=== PATIENT | female | born 1965 | race Caucasian/White ===

== ENCOUNTER 2018-04-13 09:12 | Inpatient (IN) | payer MEDICARE, MEDICAID, SELFPAY ==
[2018-04-13] VITALS (19 sets, daily range): BP systolic 166–194; BP diastolic 79–126; PULSE 68–82; RESP 13–25; TEMP 36.7–37.3; O2SAT 94–99; BMI 45.1; BMI 50.8
--- NOTE | 2018-04-13 09:15 | CT_ITS ---
STUDY: CTA NECK WITH AND WITHOUT CONTRAST REASON FOR EXAM: Female, 52 years old. Right-sided weakness and slurred speech. RADIATION DOSAGE (If Supplied By Facility): CTDIvol = ( 21.66 ) mGy, DLP = ( 868.08 ) mGycm TECHNIQUE: CT angiography with multi-detector data acquisition was performed from the aortic arch to the skull base prior to and after intravenous administration of 100CC ml of Isovue 370 contrast. MIP images were reconstructed from the axial data set. Post-processing of the angiographic images was performed, with multiplanar reformation and 3D reconstruction. Individualized dose optimization techniques were used for this CT. COMPARISON: None. FINDINGS: AORTIC ARCH: Normal visualized aortic arch. Normal origins of the brachiocephalic, left common carotid, and left subclavian arteries. RIGHT CAROTID ARTERIES: Normal right common carotid artery (CCA). Normal right internal carotid bulb. Normal origin of the right internal carotid (ICA) artery without a hemodynamically significant stenosis. Normal visualized cervical portion of the right internal carotid artery. Normal origin of the right external carotid artery (ECA). LEFT CAROTID ARTERIES: Normal left common carotid artery (CCA). Normal left internal carotid bulb. Normal origin of the left internal carotid (ICA) artery without a hemodynamically significant stenosis. Normal visualized cervical portion of the left internal carotid artery. Normal origin of the left external carotid artery (ECA). VERTEBRAL ARTERIES: Normal bilateral vertebral arteries. The right vertebral artery is dominant. CT/CTA Neck W/WO Contrast IMPRESSION: 1. Normal CTA of both common carotid arteries, both common carotid bifurcations and both internal and external carotid arteries. 2. Normal CTA of the vertebral arteries. 3. Normal CT of the aortic arch and origins of the great vessels. 4. Suspicious focal high-grade stenosis in the P2 segment of the left posterior cerebral artery (series 602, images 60-65). This may be a partially recanalized old embolic occlusion as there is no suspicious intrinsic small vessel asymptotically cc of the intracranial circulation on CTA head. This is most likely the source of the old ischemic infarct in the left [employer] territory. Electronically Signed: Evaristo Torres MD at 11:28 EST , Service support ,
--- NOTE | 2018-04-13 09:15 | CT_ITS ---
STUDY: CT BRAIN WITHOUT CONTRAST REASON FOR EXAM: Female, 52 years old. Weakness. Slurred speech. History of brain cancer. RADIATION DOSAGE (If Supplied By Facility): CTDIvol = ( 44.99 ) mGy, DLP = ( 829.85 ) mGycm TECHNIQUE: Transaxial CT imaging of the brain was performed without administration of intravenous contrast material. Individualized dose optimization techniques were used for this CT. COMPARISON: None. FINDINGS: There are postsurgical changes from a left parieto-occipital craniotomy with subjacent encephalomalacia and associated parenchymal calcifications. There is no acute bleed or infarct. There are chronic ischemic and atrophic changes. The ventricles are normal in configuration. There is no hydrocephalus. The visualized paranasal sinuses are clear. The mastoid air cells are well aerated. There is no skull fracture. CT/Brain/Head without Contrast IMPRESSION: Postsurgical changes from a left parieto-occipital craniotomy with subjacent encephalomalacia and associated parenchymal calcifications. No definite intracranial masses identified on this noncontrast CT. If indicated, further evaluation with a contrast-enhanced MRI can be performed for a more detailed evaluation. No acute intracranial abnormality. Chronic ischemic and atrophic changes. Electronically Signed: Ruben Johnson, at 10:11 EST Tel , Service support ,
--- NOTE | 2018-04-13 09:15 | CT_ITS ---
STUDY: CTA OF THE BRAIN REASON FOR EXAM: Female, 52 years old. Right-sided weakness and slurred speech. RADIATION DOSAGE (If Supplied By Facility): CTDIvol = ( 21.66 ) mGy, DLP = ( 868.08 ) mGycm TECHNIQUE: CT angiography was performed with a multi-detector CT scanner. Data acquisition was obtained from the skull base through the vertex following intravenous administration of 100 ml of Isovue 370. MIP images were reconstructed from the axial data set. Post-processing of the angiographic images was performed, with multiplanar reformation and 3D reconstruction. Individualized dose optimization techniques were used for this CT. COMPARISON: None. FINDINGS: Normal bilateral petrous carotid arteries. Normal right cavernous carotid artery with a normal supraclinoid bifurcation. Normal left cavernous carotid artery with a normal supraclinoid bifurcation. Normal right A1 segment of the anterior cerebral artery. Normal left A1 segment of the anterior cerebral artery. Normal intact anterior communicating artery (ACOM). Normal bilateral A2 segments of the anterior cerebral arteries. Normal right M1 and M2 segments of the middle cerebral arteries, with a normal M1 bifurcation. Normal left M1 and M2 segments of the middle cerebral arteries, with a normal M1 bifurcation. No visible right posterior communicating artery (PCOM). No visible left posterior communicating artery (PCOM). Normal bilateral vertebral arteries. The right is dominant. Normal basilar artery with a normal basilar bifurcation. The visualized bilateral superior cerebellar (SCA) arteries are normal. Normal bilateral P1, P2 and visualized P3 segments of the posterior cerebral arteries. There is no demonstrated aneurysm of the [place]. Gyriform dystrophic calcifications of the left occipital lobe from remote infarct. 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 CT/CTA Head W/WO Contrast IMPRESSION: 1. No CTA evidence of suspicious vaso-occlusive disease of the anterior and posterior intracranial circulation. 2. No CTA evidence of intracranial aneurysm, saccular or fusiform type. 3. Gyriform calcifications in the left occipital lobe are presumably dystrophic calcifications of old infarct. 4. Focal atrophy and cystic encephalomalacia from old cortical based ischemic infarct in the left parietal lobe. Electronically Signed: Evaristo Torres MD at 11:21 EST , Service support ,
--- NOTE | 2018-04-13 09:15 | EKG12_ITS ---
Test Reason : NEURO SYMPTOMS Blood Pressure : / mmHG Vent. Rate : 076 BPM Atrial Rate : 076 BPM P-R Int : 140 ms QRS Dur : 098 ms QT Int : 410 ms P-R-T Axes : 000 006 010 degrees QTc Int : 461 ms Normal sinus rhythm Normal ECG Confirmed by SAHRA SOLO, SOURAV ([id number]), tape editor DREW HARMAN ([id number]) on 04/16/2018 9:04:06 AM Referred By: Fracisco Lanier Confirmed By:SOURAV BOCANEGRA MD
[2018-04-13] MEDS: 0.9% Normal Saline 1,000 ML 100 ML IV (09:20)
--- NOTE | 2018-04-13 09:20 | RAD_ITS ---
STUDY: X-RAY CHEST REASON FOR EXAM: Female, 52 years old. Hypertension TECHNIQUE: Frontal view of the chest COMPARISON: None. FINDINGS: The lungs are clear. There are no pleural effusions. There is no pneumothorax. The heart is enlarged. The visualized osseous structures are within normal limits. RAD/Chest 1 View IMPRESSION: Cardiomegaly. Clear lungs. Electronically Signed: Ruben Johnson, at 9:39 EST Tel , Service support ,
--- NOTE | 2018-04-13 09:30 | NURSING ---
NO OLD EKGS
[2018-04-13 09:48] LABS: Anion Gap 9 (5-15); BUN 15 mg/dL (7-18); BUN/Creat Ratio 17.3 RATIO (10-20); Calcium,Total 8.8 mg/dL (8.5-10.1); Chloride 105 mmol/L (98-107); Creatinine, Serum 0.87 mg/dL (0.55-1.02); EST Glomerular Filtration Rate 73 mL/min (>60); Est Glom Filt Rate - Afr Amer 88 mL/min (>60); Estimated Creatinine Clearance 84.54 ml/min; Glucose 107 mg/dL (74-106); Potassium 3.8 mmol/L (3.5-5.1); Sodium Level 140 mmol/L (136-145)
[2018-04-13 09:50] LABS: Partial Thromboplast Time 23.7 Seconds (24.1-36.2)
[2018-04-13 10:09] LABS: Alcohol, Blood (Medical)-Serum < 3.0 mg/dL
[2018-04-13 10:17] LABS: Absolute Neutrophil Count 5.3 X10^3/uL (2.0-7.7); Basophil% 0.3 % (0-1); Eosinophils% 2.2 % (0-5); Hematocrit 41.5 % (37-47); Hemoglobin 13.6 g/dl (12.0-15.0); Lymphocyte % 18.7 % (19-41); Mean Corp Hgb Conc 32.8 g/gl (32-36); Mean Corpuscular Hgb 29.7 pg (27.0-32.0); Mean Corpuscular Volume 90.6 fL (81-99); Mean Platelet Vol. 9.7 fl (6.2-12.0); Monocyte% 5.3 % (0-10); Neutrophil # 5.29 X10^3/uL (2.7-7.7); Neutrophil % 73.2 % (47-70); POSITIVE COUNT NO; POSITIVE DIFFERENTIAL NO; POSITIVE MORPHOLOGY NO; Platelet Count 216 K/mm3 (150-450); RBC Distribution Width CV 13.8 % (11.6-14.6); RBC Distribution Width SD 45.1 fl (35.1-43.9); Red Blood Count 4.58 M/mm3 (4.2-5.4); White Blood Count 7.2 K/mm3 (4.4-11.0)
[2018-04-13 10:18] LABS: Absolute Lymphocyte Count 1.35 X10^3/ul (0.83-4.51); Basophil# 0.02 X10^3/uL; Eosinophil# 0.16 X10^3/uL; Lymphocyte # 1.35 X10^3/ul (4.0); Monocyte# 0.38 X10^3/uL
[2018-04-13 10:50] LABS: Bacteria 0 SEEN /hpf (None Seen); Mucous, Urine 0 SEEN /hpf (<or=2+); Red Blood Cells-Urine 0 SEEN /hpf (0-5); White Blood Cells 0 SEEN /hpf (0-5)
[2018-04-13 10:59] LABS: Color, Urine Yellow (Yellow); Glucose, Dipstick Normal (Normal); Ketone-Dipstick Negative (Negative); Leukocyte Esterase-Dipstick 25 /ul (Negative); Nitrite-Dipstick Negative (Negative); Occult Blood-Urine Negative /ul (Negative); Protein-Dipstick Negative (Negative); Specific Gravity, Urine 1.005 (1.002-1.030); Urine Bilirubin Dipstick Negative (Negative); Urine Clarity Sl. Cloudy (Clear); Urine Urobilinogen Normal (Normal)
[2018-04-13 11:08] LABS: Squamous Epithelial Cells - UA 5-10 SEEN /hpf (5-10)
--- NOTE | 2018-04-13 11:38 | ED.VISSUMM ---
- ER Visit Summary Date of Service: 04/13/18 Chief Complaint: [Right-sided weakness] History of Present Illness: The patient is a 52 F [presents to the emergency department with complaint of weakness to the right side that started last evening around 8 PM. Patient states that she was watching television when she noted that her right arm and right leg were weak. Patient did not come in initially because she felt her symptoms would resolve and she was not sure what to do. Patient finally called EMS this morning. Patient has history of left-sided brain cancer in 1999 that was resected and then underwent chemotherapy. She has a history of hypertension and high cholesterol. Patient denies any headache. She denies any falls. She denies recent illness.] Physical Examination: [HEENT-PERRLA, EOMI. Cranial nerves II through XII grossly intact. TMs clear. Mucous membranes moist. No adenopathy. Cardiovascular-regular rate and rhythm without murmur or ectopy Lungs-clear to auscultation, chest wall stable without crepitus or subcu emphysema Abdomen-normoactive bowel sounds, soft, nontender, no rebound or rigidity, no peritoneal signs. Neuro exam-patient has a right-sided facial droop. Patient has weakness of the right arm and right leg. NIH stroke scale was a 6. Patient does have some dysarthria. Patient does have some expressive a aphasia. Extremities-intact ?4, normal range of motion, normal pulses, atraumatic] Test Results: [CT scan of the brain was significant for postsurgical changes of the left parieto-occipital craniotomy. No definitive masses noted and there were some chronic ischemic changes noted. EKG obtained shows sinus rhythm with a ventricular rate 76 bpm. CBC with differential was normal. Chemistries unremarkable. Troponin was less than 0.015. Alcohol level was less than 3. Urinalysis was normal. CTA of the brain was normal. CTA of the neck showed a suspicious focal high-grade stenosis of the P2 segment of the left posterior cerebral artery which may be partially recanalized old embolic occlusion as there is no suspicious intrinsic small vessel occlusions of the intracranial circulation on CTA head.] Emergency Department Course and Treatment: [Patient was given labetalol 10 mg IV] Treatment Plan: [Case was discussed with neurologist on-call Dr. René Barry who asked that we admit patient for further workup and evaluation. Patient is not a thrombolytic candidate due to symptom of onset greater than 12 hours.] Disposition: [Admit] Impression: [Acute CVA] This note was generated with [employer] dictation software. It may contain incorrect words, spelling, and punctuation that were not noted in review of the chart prior to signing ED Disposition - Plan for ED Patient: Chief Complaint: Neuro S/Sx Referrals: Lefty Paula DO [Primary Care Provider] -
--- NOTE | 2018-04-13 11:51 | NURSING ---
HOSPITALIST FOR DR CARNEY
--- NOTE | 2018-04-13 12:05 | NURSING ---
PCU RT SIDED WEAKNESS LAURA
--- NOTE | 2018-04-13 13:27 | ECHOCS_ITS ---
Reason For Study: TIA/CVA Procedure This was a 2D Doppler, Color Flow transthoracic echocardiogram. Contrast injection was performed. Exam performed portable in patient room. Left Ventricle Normal LV size. Left ventricular systolic function is normal. The estimated ejection fraction is 60 %. Stage 1 diastolic dysfunction. No regional wall motion abnormalities noted. Right Ventricle Normal RV size. Normal systolic function. Atria Normal left atrium. Normal right atrium. Mitral Valve Normal mitral valve. Tricuspid Valve Normal tricuspid valve. Aortic Valve Normal aortic valve. Pulmonic Valve Normal pulmonic valve. Great Vessels Normal aortic root. Pericardium/Pleural No pericardial effusion. Medication Performed a rapid injection of agitated mix of 9 cc saline and 1cc air to assess for atrial septal defect. Diluted definity 4ml given slow IV push to enhance endocardial definition. MMode/2D Measurements & Calculations LVIDd: 4.7 cm IVSd: 0.97 cm Ao root diam: 3.6 cm LVIDs: 2.9 cm LVPWd: 1.1 cm RVDd: 3.7 cm FS: 37.4 % LAV(MOD-bp): 44.7 ml LVAd ap4: 38.9 cm2 SV(MOD-sp4): 84.7 ml LAV(MOD-bp) Indexed: 17.5 ml/m2 EDV(MOD-sp4): 132.5 ml LAV(MOD-sp2): 40.0 ml EDV(sp4-el): 139.7 ml LAV(MOD-sp4): 40.0 ml LVAs ap4: 20.4 cm2 ESV(MOD-sp4): 47.8 ml ESV(sp4-el): 50.1 ml EF(MOD-sp4): 63.9 % EF(sp4-el): 64.1 % SV(sp4-el): 89.6 ml LA A4 area: 17.0 cm2 LA dimension(2D): 3.7 cm Time Measurements MV dec time: 0.28 sec Doppler Measurements & Calculations MV E max david: 63.5 cm/sec Lat Peak E' David: 6.7 cm/sec Med Peak E' David: 5.9 cm/sec MV A max david: 85.0 cm/sec E/E' lat: 9.5 E/E' med: 10.8 MV E/A: 0.75 Ao V2 max: 168.2 cm/sec LV V1 max: 108.8 cm/sec TR max david: 146.5 cm/sec Ao max P.3 mmHg LV V1 max P.7 mmHg TR max P.6 mmHg Interpretation Summary Normal LV size. Left ventricular systolic function is normal. The estimated ejection fraction is 60 %. Stage 1 diastolic dysfunction. Contrast injection was performed. Ordering Physician: Fracisco Lanier Referring Physician: LD MATUTE Performed By: Tila Perez, CAROLINECS, RVT
--- NOTE | 2018-04-13 14:29 | MRI_ITS ---
STUDY: MRI BRAIN WITH AND WITHOUT CONTRAST REASON FOR EXAM: Female, 52 years old. Right side flaccid. CVA. History of brain mass. TECHNIQUE: Standardized multiplanar fat and water weighted pulse sequences were obtained. 10 ml of Gadavist contrast material was administered intravenously for the contrast portion of the examination. COMPARISON: CT head without contrast and CTA head and neck with and without contrast 04/13/2018. FINDINGS: Left periventricular white matter restricted diffusion measures 1.9 x 1.2 cm. This is also visible on the T2 FLAIR sequence. The restricted diffusion extends to the left posterior putamen.This is consistent with subacute ischemic infarct. Old cystic infarct with focal atrophy in the left precuneus and left superior parietal lobule. Normal ventricles and cisterns. T2 FLAIR hyperintensity foci in the white matter of both cerebral hemispheres are chronic white matter ischemic changes. Normal remaining basal ganglia. Normal thalami. There is no extra-axial fluid accumulation. Normal flow voids within the major intracranial circulation suggesting patency by spin echo criteria. Normal venous enhancement. There is no enhancing intra-axial or extra-axial abnormality. Normal sella turcica, pituitary gland, infundibular stalk, optic chiasm and hypothalamus. Normal tectal plate and pineal gland. Normal midbrain, mao and medulla. Normal cerebellum. Normal basal cisterns. Normal bilateral temporal bones. Normal bilateral internal auditory canals. No demonstrated orbital abnormality, within the constraints of a routine brain study. Normal visualized paranasal sinuses. Normal calvarium and skull base. Normal visualized soft tissue structures. Normal visualized upper cervical spine. MRI/Brain W/WO Contrast IMPRESSION: 1. Subacute ischemic infarct in the left periventricular white matter measuring 1.9 x 1.2 cm. This extends slightly towards the left posterior putamen. 2. Old cystic infarcts with focal atrophy in the left precuneus and left superior parietal lobule. 3. Chronic white matter ischemic changes in both cerebral hemispheres. Electronically Signed: Evaristo Torres MD at 10:00 EST , Service support ,
--- NOTE | 2018-04-13 14:30 | PCM.HP.STD ---
Problem List (1) Stroke Status: Suspected (2) Astrocytoma brain tumor Status: Chronic Comment: Left parietal. (3) HTN (hypertension) Status: Chronic (4) HLD (hyperlipidemia) Status: Chronic (5) Depression Status: Chronic History of Present Illness Date of Admission: 04/13/18 Chief Complaint: Right sided weakness. The patient is a 52 year old F who presents to the Emergency Room due to right sided weakness. Patient states her right arm became weak yesterday and she was unable to use right arm. Denies right leg weakness. Reports associated aphasia and right facial droop. Denies difficulty swallowing. Denies vision changes. Patient denies history of stroke. Patient states she did not come in right away, hopeful symptoms would resolve. Patient has a history of left parietal cystic astrocytoma. She follows with [facility] and has MRI every 6 months to monitor. She previously had resection with chemo and radiation in 1999. Her other past medical history includes hypertension, hyperlipidemia, depression. Past Medical History Past Medical History (Chronic Problems): Chronic Problems Astrocytoma brain tumor (Chronic) Left parietal. HTN (hypertension) (Chronic) HLD (hyperlipidemia) (Chronic) Depression (Chronic) Allergies prednisone Adverse Reaction (Verified 04/13/18 13:50) Rash Home Medications: Ambulatory Orders Medication Instructions Recorded Escitalopram Oxalate [Lexapro] 10 mg PO DAILY 04/13/18 Lisinopril [Zestril] 10 mg PO DAILY 04/13/18 Simvastatin 40 mg PO QHS 04/13/18 Surgical History: hysterectomy, - - Resection of left parietal cystic astrocytoma. Psychiatric History: Depression [employer] WORK[employer] History: No pertinent [employer] WORK[employer] history Lives: Alone Smoking Status: Never smoker Tobacco Use: Non-smoker Alcohol: Occasional Drugs: None - *Family History Maternal History Items: Dementia, - - Stroke Paternal History Items: - - Atrial Fibrillation Review of Systems Constitutional: Denies: Chills, Fever, Weight Change HEENT: Denies: Head Aches, Sinus Congestion, Sinus Drainage Cardiovascular: Denies: Chest Pain, Palpitations Respiratory: Denies: Cough, Shortness of breath at rest, Sputum production Gastrointestinal: Denies: Abdominal Pain, Nausea, Vomiting Genitourinary: Denies: Dysuria Musculoskeletal: Denies: Joint Pain, Joint Tenderness Skin: Denies: Rash, Wounds Neurological: Reports: Change in Speech - aphasia, Focal weakness - Right arm., - - Right facial droop.. Denies: Confusion, Seizures Psychiatric: Reports: Depression Hematologic/ Lymphatic: Denies: Easy Bruising, Easy Bleeding VTE Information - Inpt Only VTE Present on Admission: No VTE Mechan Device Prophylaxis: None VTE Pharm Prophylaxis ordered?: Yes Patient Problems: Active and Suspected Problems Stroke (Suspected) - Physical Exam General: Alert, Oriented x3, Cooperative HEENT: Atraumatic, PERRLA, EOMI, Normocephalic Neck: Supple, No JVD, Negative Carotid Bruits Lungs: Clear to auscultation, Normal air movement Cardiovascular: Regular rate, Regular Rhythm, Normal S1, Normal S2, No murmurs Abdomen: Bowel Sounds Present, Soft, Non Tender, Non-Distended, Obese Extremities: No clubbing, No cyanosis, No edema Skin: No rashes, No breakdown Musculoskeletal: No Tenderness to Palpation of Joints or Extremities Neurological: Facial Droop - Right side., - - Right arm 1/5 strength. Aphasia. Psych/Mental Status: Normal Affect, Appropriate Vital Signs Temp Pulse Resp BP Pulse Ox 98.6 F 69 17 176/96 H 95 04/13/18 13:50 04/13/18 13:50 04/13/18 13:50 04/13/18 13:50 04/13/18 13:50 Oxygen Delivery Method Room Air Weight: 315 lb Body Mass Index (BMI) 50.8 Finger Stick Blood Glucose 110 Laboratory Tests Past 24 Hrs 04/13/18 04/13/18 04/13/18 09:20 09:20 09:20 WBC 7.2 RBC 4.58 Hgb 13.6 Hct 41.5 MCV 90.6 MCH 29.7 MCHC 32.8 RDW 13.8 RDW Differential 45.1 H Plt Count 216 MPV 9.7 Immature Gran % (Auto) 0.300 Neut % (Auto) 73.2 H Lymph % (Auto) 18.7 L Harnett % (Auto) 5.3 Eos % (Auto) 2.2 Baso % (Auto) 0.3 Absolute Neuts (auto) 5.3 Absolute Lymphs (auto) 1.35 Total Counted Not Reportable PT 13.0 INR 1.0 APTT 23.7 L Sodium 140 Potassium 3.8 Chloride 105 Carbon Dioxide 26.0 Anion Gap 9 BUN 15 Creatinine 0.87 Estim Creat Clear Calc 84.54 Est GFR (MDRD) Af Amer 88 Est GFR (MDRD) Non-Af 73 BUN/Creatinine Ratio 17.3 Glucose 107 H Calcium 8.8 Troponin I < 0.015 Urine Color Urine Clarity Urine pH Ur Specific Rodney Urine Protein Urine Glucose (UA) Urine Ketones Urine Occult Blood Urine Nitrite Urine Bilirubin Urine Urobilinogen Ur Leukocyte Esterase Urine RBC Urine WBC Ur Squamous Epith Cells Urine Bacteria Urine Mucus Ethyl Alcohol 04/13/18 04/13/18 09:20 10:45 WBC RBC Hgb Hct MCV MCH MCHC RDW RDW Differential Plt Count MPV Immature Gran % (Auto) Neut % (Auto) Lymph % (Auto) Harnett % (Auto) Eos % (Auto) Baso % (Auto) Absolute Neuts (auto) Absolute Lymphs (auto) Total Counted PT INR APTT Sodium Potassium Chloride Carbon Dioxide Anion Gap BUN Creatinine Estim Creat Clear Calc Est GFR (MDRD) Af Amer Est GFR (MDRD) Non-Af BUN/Creatinine Ratio Glucose Calcium Troponin I Urine Color Yellow Urine Clarity Sl. Cloudy Urine pH 7.0 Ur Specific Rodney 1.005 Urine Protein Negative Urine Glucose (UA) Normal Urine Ketones Negative Urine Occult Blood Negative Urine Nitrite Negative Urine Bilirubin Negative Urine Urobilinogen Normal Ur Leukocyte Esterase 25 H Urine RBC 0 SEEN Urine WBC 0 SEEN Ur Squamous Epith Cells 5-10 SEEN Urine Bacteria 0 SEEN Urine Mucus 0 SEEN Ethyl Alcohol < 3.0 Assessment/Plan 1. Presumed acute CVA- NIH 6. Right arm 1/5 strength, ongoing since yesterday. Expressive aphasia and right facial droop. Brain CT on admission with postsurgical changes from a left parietal occipital craniotomy. No definite intracranial masses. Neck CTA with suspicious isolated focal high-grade stenosis in the P2 segment of the left posterior cerebral artery. This may be a partially recommend lysed old embolic occlusion. Aspirin, statin. Obtain MRI with contrast. Obtain echo. [facility] Q4. PT/OT/ST. Dr. Barry, neurology consulted. 2. Left parietal cystic astrocytoma-follows with [facility] with every 6 months MRI. Last reported to be stable. Previous tumor resection with chemo and radiation therapy in 1999. 3. Hypertension-permissive hypertension. Patient received labetalol in ER for systolic blood pressure greater than 190. Home lisinopril regimen on hold. 4. Hyperlipidemia-continue statin. Fasting lipid panel in a.m. 5. Depression-continue home Lexapro regimen. DVT prophylaxis-SCDs This patient was seen by VENKAT Mcguire under the supervision of Dr. Lanier.
--- NOTE | 2018-04-13 14:37 | HP.PCM_ITS ---
Problem List (1) Stroke Status: Suspected (2) Astrocytoma brain tumor Status: Chronic Comment: Left parietal. (3) HTN (hypertension) Status: Chronic (4) HLD (hyperlipidemia) Status: Chronic (5) Depression Status: Chronic History of Present Illness Date of Admission: 04/13/18 Chief Complaint: Right sided weakness. The patient is a 52 year old F who presents to the Emergency Room due to right sided weakness. Patient states her right arm became weak yesterday and she was unable to use right arm. Denies right leg weakness. Reports associated aphasia and right facial droop. Denies difficulty swallowing. Denies vision changes. Patient denies history of stroke. Patient states she did not come in right away, hopeful symptoms would resolve. Patient has a history of left parietal cystic astrocytoma. She follows with [facility] and has MRI every 6 months to monitor. She previously had resection with chemo and radiation in 1999. Her other past medical history includes hypertension, hyperlipidemia, depression. Past Medical History Past Medical History (Chronic Problems): Chronic Problems Astrocytoma brain tumor (Chronic) Left parietal. HTN (hypertension) (Chronic) HLD (hyperlipidemia) (Chronic) Depression (Chronic) Allergies prednisone Adverse Reaction (Verified 04/13/18 13:50) Rash Home Medications: Ambulatory Orders Medication Instructions Recorded Escitalopram Oxalate [Lexapro] 10 mg PO DAILY 04/13/18 Lisinopril [Zestril] 10 mg PO DAILY 04/13/18 Simvastatin 40 mg PO QHS 04/13/18 Surgical History: hysterectomy, - - Resection of left parietal cystic astrocytoma. 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 Lives: Alone Smoking Status: Never smoker Tobacco Use: Non-smoker Alcohol: Occasional Drugs: None - *Family History Maternal History Items: Dementia, - - Stroke Paternal History Items: - - Atrial Fibrillation Review of Systems Constitutional: Denies: Chills, Fever, Weight Change HEENT: Denies: Head Aches, Sinus Congestion, Sinus Drainage Cardiovascular: Denies: Chest Pain, Palpitations Respiratory: Denies: Cough, Shortness of breath at rest, Sputum production Gastrointestinal: Denies: Abdominal Pain, Nausea, Vomiting Genitourinary: Denies: Dysuria Musculoskeletal: Denies: Joint Pain, Joint Tenderness Skin: Denies: Rash, Wounds Neurological: Reports: Change in Speech - aphasia, Focal weakness - Right arm., - - Right facial droop.. Denies: Confusion, Seizures Psychiatric: Reports: Depression Hematologic/ Lymphatic: Denies: Easy Bruising, Easy Bleeding VTE Information - Inpt Only VTE Present on Admission: No VTE Mechan Device Prophylaxis: None VTE Pharm Prophylaxis ordered?: Yes Patient Problems: Active and Suspected Problems Stroke (Suspected) - Physical Exam General: Alert, Oriented x3, Cooperative HEENT: Atraumatic, PERRLA, EOMI, Normocephalic Neck: Supple, No JVD, Negative Carotid Bruits Lungs: Clear to auscultation, Normal air movement Cardiovascular: Regular rate, Regular Rhythm, Normal S1, Normal S2, No murmurs Abdomen: Bowel Sounds Present, Soft, Non Tender, Non-Distended, Obese Extremities: No clubbing, No cyanosis, No edema Skin: No rashes, No breakdown Musculoskeletal: No Tenderness to Palpation of Joints or Extremities Neurological: Facial Droop - Right side., - - Right arm 1/5 strength. Aphasia. Psych/Mental Status: Normal Affect, Appropriate Vital Signs Temp Pulse Resp BP Pulse Ox 98.6 F 69 17 176/96 H 95 04/13/18 13:50 04/13/18 13:50 04/13/18 13:50 04/13/18 13:50 04/13/18 13:50 Oxygen Delivery Method Room Air Weight: 315 lb Body Mass Index (BMI) 50.8 Finger Stick Blood Glucose 110 Laboratory Tests Past 24 Hrs 04/13/18 04/13/18 04/13/18 09:20 09:20 09:20 WBC 7.2 RBC 4.58 Hgb 13.6 Hct 41.5 MCV 90.6 MCH 29.7 MCHC 32.8 RDW 13.8 RDW Differential 45.1 H Plt Count 216 MPV 9.7 Immature Gran % (Auto) 0.300 Neut % (Auto) 73.2 H Lymph % (Auto) 18.7 L Jay % (Auto) 5.3 Eos % (Auto) 2.2 Baso % (Auto) 0.3 Absolute Neuts (auto) 5.3 Absolute Lymphs (auto) 1.35 Total Counted Not Reportable PT 13.0 INR 1.0 APTT 23.7 L Sodium 140 Potassium 3.8 Chloride 105 Carbon Dioxide 26.0 Anion Gap 9 BUN 15 Creatinine 0.87 Estim Creat Clear Calc 84.54 Est GFR (MDRD) Af Amer 88 Est GFR (MDRD) Non-Af 73 BUN/Creatinine Ratio 17.3 Glucose 107 H Calcium 8.8 Troponin I < 0.015 Urine Color Urine Clarity Urine pH Ur Specific [place] Urine Protein Urine Glucose (UA) Urine Ketones Urine Occult Blood Urine Nitrite Urine Bilirubin Urine Urobilinogen Ur Leukocyte Esterase Urine RBC Urine WBC Ur Squamous Epith Cells Urine Bacteria Urine Mucus Ethyl Alcohol 04/13/18 04/13/18 09:20 10:45 WBC RBC Hgb Hct MCV MCH MCHC RDW RDW Differential Plt Count MPV Immature Gran % (Auto) Neut % (Auto) Lymph % (Auto) Jay % (Auto) Eos % (Auto) Baso % (Auto) Absolute Neuts (auto) Absolute Lymphs (auto) Total Counted PT INR APTT Sodium Potassium Chloride Carbon Dioxide Anion Gap BUN Creatinine Estim Creat Clear Calc Est GFR (MDRD) Af Amer Est GFR (MDRD) Non-Af BUN/Creatinine Ratio Glucose Calcium Troponin I Urine Color Yellow Urine Clarity Sl. Cloudy Urine pH 7.0 Ur Specific [place] 1.005 Urine Protein Negative Urine Glucose (UA) Normal Urine Ketones Negative Urine Occult Blood Negative Urine Nitrite Negative Urine Bilirubin Negative Urine Urobilinogen Normal Ur Leukocyte Esterase 25 H Urine RBC 0 SEEN Urine WBC 0 SEEN Ur Squamous Epith Cells 5-10 SEEN Urine Bacteria 0 SEEN Urine Mucus 0 SEEN Ethyl Alcohol < 3.0 Assessment/Plan 1. Presumed acute CVA- NIH 6. Right arm 1/5 strength, ongoing since yesterday. Expressive aphasia and right facial droop. Brain CT on admission with postsurgical changes from a left parietal occipital craniotomy. No definite intracranial masses. Neck CTA with suspicious isolated focal high-grade stenosis in the P2 segment of the left posterior cerebral artery. This may be a partially recommend lysed old embolic occlusion. Aspirin, statin. Obtain MRI with contrast. Obtain echo. [facility] Q4. PT/OT/ST. Dr. Barry, neurology consulted. 2. Left parietal cystic astrocytoma-follows with [facility] with every 6 months MRI. Last reported to be stable. Previous tumor resection with chemo and radiation therapy in 1999. 3. Hypertension-permissive hypertension. Patient received labetalol in ER for systolic blood pressure greater than 190. Home lisinopril regimen on hold. 4. Hyperlipidemia-continue statin. Fasting lipid panel in a.m. 5. Depression-continue home Lexapro regimen. DVT prophylaxis-SCDs This patient was seen by VENKAT Mcguire under the supervision of Dr. Lanier.
[2018-04-13] MEDS: Aspirin 81 MG TAB.CHEW PO (17:48)
[2018-04-13] MEDS: Atorvastatin Calcium 80 MG Tablet PO (21:19)
[2018-04-14] VITALS (14 sets, daily range): BP systolic 162–187; BP diastolic 89–119; PULSE 63–88; RESP 15–18; TEMP 36.4–37.1; O2SAT 93–98; BMI 50.8
[2018-04-14] MEDS: Pramipexole Di-HCl 0.125 MG Tablet PO ×2 (00:34→20:40)
[2018-04-14 06:52] LABS: Cholesterol 174 mg/dL (200); Ferritin 33 ng/mL (8-252); High Density Lipoprotein 53 mg/dL; Triglycerides 140 mg/dL; Very Low Density Lipoprotein 28 mg/dL (5-40)
[2018-04-14] MEDS: Aspirin 81 MG TAB.CHEW PO (07:59)
--- NOTE | 2018-04-14 10:57 | CON.PCM_ITS ---
Reason for Consult Date of Consultation: 04/14/18 Reason for Consultation: Right-sided weakness History of Present Illness: The patient is a 52 year old presented with new right sided weakness. reports uncontrolled htn. nonsmoker and no diabetes.drinks moderate alchohol. doesnt take asa daily at home. lives alone, stays on one floor, two steps. reports food ok. speech therapy has recommended thickened liquids. nonsmoker, no asa at home. has frank on cpap nightly but hasnt had a study in at least 5yrs. Per admit note: The patient is a 52 year old F who presents to the Emergency Room due to right sided weakness. Patient states her right arm became weak yesterday and she was unable to use right arm. Denies right leg weakness. Reports associated aphasia and right facial droop. Denies difficulty swallowing. Denies vision changes. Patient denies history of stroke. Patient states she did not come in right away, hopeful symptoms would resolve. Patient has a history of left parietal cystic astrocytoma. She follows with [facility] and has MRI every 6 months to monitor. She previously had resection with chemo and radiation in 1999. Her other past medical history includes hypertension, hyperlipidemia, depression. Past Medical History Past Medical History (Chronic Problems): Chronic Problems Astrocytoma brain tumor (Chronic) Left parietal. HTN (hypertension) (Chronic) HLD (hyperlipidemia) (Chronic) Depression (Chronic) Allergies prednisone Adverse Reaction (Verified 04/13/18 13:50) Rash Home Medications: Ambulatory Orders Medication Instructions Recorded Escitalopram Oxalate [Lexapro] 10 mg PO DAILY 04/13/18 Lisinopril [Zestril] 10 mg PO DAILY 04/13/18 Simvastatin 40 mg PO QHS 04/13/18 Surgical History: hysterectomy, - - Resection of left parietal cystic astrocytoma. 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 severe dysarthria Vital Signs Temp Pulse Resp BP Pulse Ox 36.4 C L 81 18 166/102 H 96 04/14/18 08:00 04/14/18 08:00 04/14/18 08:00 04/14/18 08:00 04/14/18 08:00 Oxygen Flow Rate (L/min) 2 Oxygen Delivery Method Room Air Weight: 142.882 kg Body Mass Index (BMI) 50.8 Finger Stick Blood Glucose 110 Intake and Output for Last 24 Hours 04/12/18 04/13/18 04/14/18 23:59 23:59 23:59 Intake Total 850 / 850 150 / 150 Balance 850 / 850 150 / 150 Laboratory Tests Past 24 Hrs 04/13/18 04/14/18 10:45 06:00 Ferritin 33 Triglycerides 140 Cholesterol 174 LDL Cholesterol 93 VLDL Cholesterol 28 HDL Cholesterol 53 Urine Color Yellow Urine Clarity Sl. Cloudy Urine pH 7.0 Ur Specific [place] 1.005 Urine Protein Negative Urine Glucose (UA) Normal Urine Ketones Negative Urine Occult Blood Negative Urine Nitrite Negative Urine Bilirubin Negative Urine Urobilinogen Normal Ur Leukocyte Esterase 25 H Urine RBC 0 SEEN Urine WBC 0 SEEN Ur Squamous Epith Cells 5-10 SEEN Urine Bacteria 0 SEEN Urine Mucus 0 SEEN MRI reviewed. There is an acute left periventricular small vessel distribution infarct. There is also cystic encephalomalacia in the left parieto-occipital lobe posteriorly. CTA of the head and neck was also reviewed, no significant stenosis although the report does describe focal stenosis in the left P2 distribution. Assessment/Plan left BG infarct, acute asa daily statin therapy await echo tele pt/ot/sp rehab recommended recommend hypercoag eval rls: start mirapex qhs
--- NOTE | 2018-04-14 11:45 | PCM.PROGNOTE ---
Patient Problems: Active and Suspected Problems Stroke (Suspected) Subjective: Patient seen and examined. Returning from MRI. Denies new neurologic deficits. He continues to have right-sided weakness, right facial droop and severe dysarthria. Patient agreeable to rehab at discharge. - Physical Exam General: Alert, Oriented x3, Cooperative HEENT: Atraumatic, PERRLA, EOMI, Normocephalic Neck: Supple, No JVD, Negative Carotid Bruits Lungs: Clear to auscultation, Normal air movement Cardiovascular: Regular rate, Regular Rhythm, Normal S1, Normal S2, No murmurs Abdomen: Bowel Sounds Present, Soft, Non Tender, Non-Distended, Obese Extremities: No clubbing, No cyanosis, No edema, Capillary Refill Less than 3 Seconds Skin: No rashes, No breakdown Musculoskeletal: No Tenderness to Palpation of Joints or Extremities Neurological: Sensory exam intact to light touch and pain, - - Dysarthria, right facial droop, flaccid right arm, right leg weakness 3/5 Psych/Mental Status: Normal Affect, Appropriate Vital Signs Temp Pulse Resp BP Pulse Ox 97.5 F L 81 18 166/102 H 96 04/14/18 08:00 04/14/18 08:00 04/14/18 08:00 04/14/18 08:00 04/14/18 08:00 Oxygen Flow Rate (L/min) 2 Oxygen Delivery Method Room Air Weight: 315 lb Body Mass Index (BMI) 50.8 Finger Stick Blood Glucose 110 Intake and Output for Last 24 Hours 04/12/18 04/13/18 04/14/18 23:59 23:59 23:59 Intake Total 850 / 850 150 / 150 Balance 850 / 850 150 / 150 Laboratory Tests Past 24 Hrs 04/14/18 06:00 Ferritin 33 Triglycerides 140 Cholesterol 174 LDL Cholesterol 93 VLDL Cholesterol 28 HDL Cholesterol 53 Medical Necessity - Tobacco Use Smoking Status: Never smoker Tobacco Use: Non-smoker Assessment/Plan 1. Acute CVA, acute left basal ganglia infarct- Brain CT on admission with postsurgical changes from a left parietal occipital craniotomy. No definite intracranial masses. Neck CTA with suspicious isolated focal high-grade stenosis in the P2 segment of the left posterior cerebral artery. This may be a partially recommend lysed old embolic occlusion. Aspirin, statin. MRI of brain shows subacute ischemic infarct in the left periventricular white matter measuring 1.9 x 1.2 cm. Old cystic infarcts with focal atrophy in the left precuneus and left superior parietal lobule. Chronic white matter ischemic changes in both cerebral hemispheres. Obtain echo. [facility] Q4. PT/OT/ST. Dr. Barry, neurology consulted. Patient agreeable to rehab at discharge. NIH 8-10. Neurology recommending hypercoagulable panel. 2. Left parietal cystic astrocytoma-follows with [facility] with every 6 months MRI. Last reported to be stable. Previous tumor resection with chemo and radiation therapy in 1999. 3. Hypertension-permissive hypertension. Home lisinopril regimen on hold. PRN hydralazine for systolic blood pressure greater than 180. 4. Hyperlipidemia-continue statin. 5. Depression-continue home Lexapro regimen. 6. Restless leg syndrome-started on Mirapex per neurology. DVT prophylaxis-Lovenox This patient was seen by VENKAT Mcguire under the supervision of Dr. Lanier.
--- NOTE | 2018-04-14 11:56 | PN_ITS ---
Patient Problems: Active and Suspected Problems Stroke (Suspected) Subjective: Patient seen and examined. Returning from MRI. Denies new neurologic deficits. He continues to have right-sided weakness, right facial droop and severe dysarthria. Patient agreeable to rehab at discharge. - Physical Exam General: Alert, Oriented x3, Cooperative HEENT: Atraumatic, PERRLA, EOMI, Normocephalic Neck: Supple, No JVD, Negative Carotid Bruits Lungs: Clear to auscultation, Normal air movement Cardiovascular: Regular rate, Regular Rhythm, Normal S1, Normal S2, No murmurs Abdomen: Bowel Sounds Present, Soft, Non Tender, Non-Distended, Obese Extremities: No clubbing, No cyanosis, No edema, Capillary Refill Less than 3 Seconds Skin: No rashes, No breakdown Musculoskeletal: No Tenderness to Palpation of Joints or Extremities Neurological: Sensory exam intact to light touch and pain, - - Dysarthria, right facial droop, flaccid right arm, right leg weakness 3/5 Psych/Mental Status: Normal Affect, Appropriate Vital Signs Temp Pulse Resp BP Pulse Ox 97.5 F L 81 18 166/102 H 96 04/14/18 08:00 04/14/18 08:00 04/14/18 08:00 04/14/18 08:00 04/14/18 08:00 Oxygen Flow Rate (L/min) 2 Oxygen Delivery Method Room Air Weight: 315 lb Body Mass Index (BMI) 50.8 Finger Stick Blood Glucose 110 Intake and Output for Last 24 Hours 04/12/18 04/13/18 04/14/18 23:59 23:59 23:59 Intake Total 850 / 850 150 / 150 Balance 850 / 850 150 / 150 Laboratory Tests Past 24 Hrs 04/14/18 06:00 Ferritin 33 Triglycerides 140 Cholesterol 174 LDL Cholesterol 93 VLDL Cholesterol 28 HDL Cholesterol 53 Medical Necessity - Tobacco Use Smoking Status: Never smoker Tobacco Use: Non-smoker Assessment/Plan 1. Acute CVA, acute left basal ganglia infarct- Brain CT on admission with post surgical changes from a left parietal occipital craniotomy. No definite intracranial masses. Neck CTA with suspicious isolated focal high-grade stenosis in the P2 segment of the left posterior cerebral artery. This may be a partially recommend lysed old embolic occlusion. Aspirin, statin. MRI of brain shows subacute ischemic infarct in the left periventricular white matter measuring 1.9 x 1.2 cm. Old cystic infarcts with focal atrophy in the left precuneus and left superior parietal lobule. Chronic white matter ischemic changes in both cerebral hemispheres. Obtain echo. [facility] Q4. PT/OT/ST. Dr. Barry, neurology consulted. Patient agreeable to rehab at discharge. NIH 8- 10. Neurology recommending hypercoagulable panel. 2. Left parietal cystic astrocytoma-follows with [facility] with every 6 months MRI. Last reported to be stable. Previous tumor resection with chemo and radiation therapy in 1999. 3. Hypertension-permissive hypertension. Home lisinopril regimen on hold. PRN hydralazine for systolic blood pressure greater than 180. 4. Hyperlipidemia-continue statin. 5. Depression-continue home Lexapro regimen. 6. Restless leg syndrome-started on Mirapex per neurology. DVT prophylaxis-Lovenox This patient was seen by VENKAT Mcguire under the supervision of Dr. Lanier.
[2018-04-14] MEDS: hydrALAZINE 20 MG/ML Vial 5 MG IV (14:35)
[2018-04-14] MEDS: Atorvastatin Calcium 80 MG Tablet PO (20:40)
[2018-04-14] MEDS: Nystatin Powder 15gm Bottle 1 APPLIC TOPICAL (22:54)
--- NOTE | 2018-04-14 23:47 | CT_ITS ---
STUDY: CT BRAIN WITHOUT CONTRAST REASON FOR EXAM: Female, 52 years old. Worsening neurologic symptoms from earlier exam. Right arm is now flaccid. History of astrocytoma with resection of a left parietal cystic astrocytoma. RADIATION DOSAGE (If Supplied By Facility): CTDIvol = ( 44.99 ) mGy, DLP = ( 829.85 ) mGycm TECHNIQUE: Transaxial CT imaging of the brain was performed without administration of intravenous contrast material. Individualized dose optimization techniques were used for this CT. COMPARISON: None. FINDINGS: Normal soft tissue structures. There is hyperostosis frontalis internus. Diffuse heterogeneous sclerosis of the skull, indeterminate significance, possibly representing Paget's disease or possibly representing systemic abnormality. There is a left posterior parietal craniotomy defect, with underlying focal encephalomalacia in the posterior left parietal lobe. There are parenchymal calcifications in the posterior parietal lobes and occipital lobes bilaterally. There is no visualized soft tissue mass in this noncontrast study and there is no demonstrated hemorrhage. There is mild cerebral atrophy with widening of the extra-axial spaces and ventricular dilatation. There are areas of decreased attenuation within the white matter tracts of the supratentorial brain, consistent with microvascular disease changes. There are calcifications of the basal ganglia which are seen in the aging brain as a normal variant. Normal brainstem. Normal cerebellum. There is no intracranial hemorrhage. There are no findings of an acute ischemic infarction. There is mucoperiosteal inflammatory disease of the paranasal sinuses consistent with mild chronic sinusitis. CT/Brain/Head without Contrast IMPRESSION: Previous left posterior parietal craniotomy with underlying encephalomalacia. Chronic parenchymal calcifications in the posterior parietal and occipital lobes. Chronic involutional changes of the brain. No demonstrated acute intracranial process. N.B. : The above information has been verbally conveyed by Heriberto Landeros MD to CAMILO DIVINE on 04/14/2018 00:37:35 (ET). Electronically Signed: Heriberto Landeros MD at 0:32 EST , Service support ,
[2018-04-15] VITALS (8 sets, daily range): BP systolic 149–164; BP diastolic 76–98; PULSE 57–76; RESP 16; TEMP 36.5–37.3; O2SAT 93–98; BMI 50.8
[2018-04-15] MEDS: Enoxaparin 40 MG/0.4 ML Syringe SC (05:52)
[2018-04-15] MEDS: Aspirin 81 MG TAB.CHEW PO (09:18)
[2018-04-15] MEDS: Nystatin Powder 15gm Bottle 1 APPLIC TOPICAL (09:19)
--- NOTE | 2018-04-15 09:48 | CASEMGMT ---
Assessment- 04-15-18 Living situation- Alone in a 2 story home. However, patient is set up on first floor. There is 1 entry step. PCP: Dr Lefty Paula Pharmacy: [facility] DME: no equipment ADL's/IADL's: Normally completely independent Past SNF/rehab: No Past HH: None LW: No POA: Patient thinks her son Jeremi is her HCPOA Plan: SW spoke with patient. Introduced self and role at [facility]. Completed assessment. Patient is interested in going to [facility] 4th floor rehab unit. SW made a referral to Jasmyn who is covering Rehab and SW just needs to let her know when patient is ready. Val CAROLINA DIGITAL FORENSIC ANALYST
--- NOTE | 2018-04-15 10:19 | CASEMGMT ---
CHRISTO received a call from patient's son, Jeremi. He was asking about costs and d/c plan. SW told him about costs and that patient will be going to [facility] 4th floor rehab unit. He said he has the healthcare living will and healthcare POA. CHRISTO gave him fax number for PCU and he will fax documents. CHRISOT gave him the name of Milana the d/c certified financial planner in the rehab unit. He thanked CHRISTO for the assistance. Val CAROLINA MSW
[2018-04-15] MEDS: Magnesium Hydroxide 30 ML UDC PO (11:32)
--- NOTE | 2018-04-15 12:19 | PCM.HP.STD ---
History of Present Illness Date of Admission: 04/15/18 Chief Complaint: cva, debility rehab h &p 52 yo right handed white female with history of dm, htn, presented to [facility] with right side weakness, diagnosed with left bg infarct. also history of RLS, took mirapex last night which helped. lives alone, one story house, one step. 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 workup otherwise unrevealing in hospital, now admitted to [facility] rehab with goal of restoring previous level of functional independence. currently reports constipation but no other complaints, tolerating regular diet. history of frank, good compliance but hasnt had repeat study in over 5 yrs Past Medical History Past Medical History (Chronic Problems): Chronic Problems Astrocytoma brain tumor (Chronic) Left parietal. HTN (hypertension) (Chronic) HLD (hyperlipidemia) (Chronic) Depression (Chronic) Allergies prednisone Adverse Reaction (Verified 04/13/18 13:50) Rash Home Medications: Ambulatory Orders Medication Instructions Recorded Escitalopram Oxalate [Lexapro] 10 mg PO DAILY 04/13/18 Lisinopril [Zestril] 10 mg PO DAILY 04/13/18 Aspirin [Aspirin, Baby] 81 mg PO DAILY@0800 tab.chew 04/15/18 Atorvastatin Calcium [Lipitor] 80 mg PO QHS tablet 04/15/18 Nystatin Powder [Mycostatin Powder] 1 applic TOPICAL BID bottle 04/15/18 Pramipexole Di-HCl [Mirapex] 0.125 mg PO QHS tablet 04/15/18 Surgical History: hysterectomy, - - Resection of left parietal cystic astrocytoma 1999. 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 Denies: Abdominal Pain, Nausea, Vomiting Genitourinary: Denies: Dysuria Musculoskeletal: Denies: Joint Pain, Joint Tenderness Skin: Denies: Rash, Wounds Neurological: Reports: Change in Speech, Focal weakness Psychiatric: Reports: Anxiety VTE Information - Inpt Only VTE Present on Admission: Yes VTE Pharm Prophylaxis ordered?: Yes Patient Problems: Active and Suspected Problems Stroke (Suspected) - Physical Exam General: Alert, Oriented x3, Cooperative, No apparent distress HEENT: Atraumatic, PERRLA, EOMI Neurological: Facial Droop - right, Slurred Speech, Sensory exam intact to light touch and pain, - - right arm flaccid right leg 2/5 Psych/Mental Status: Normal Affect, Alert and oriented to time, place, person, mood and affect Vital Signs Temp Pulse Resp BP Pulse Ox 37.3 C 76 16 161/89 H 94 04/15/18 11:27 04/15/18 11:27 04/15/18 11:27 04/15/18 11:27 04/15/18 11:27 Oxygen Flow Rate (L/min) 2 Oxygen Delivery Method Room Air Weight: 142.882 kg Body Mass Index (BMI) 50.8 Finger Stick Blood Glucose 110 Intake and Output for Last 24 Hours 04/13/18 04/14/18 04/15/18 23:59 23:59 23:59 Intake Total 850 / 850 750 / 750 Output Total 100 / 100 Balance 850 / 850 750 / 750 -100 / -100 Laboratory Tests Past 24 Hrs 04/15/18 06:05 Protein C Antigen Pending Functional Protein C Pending Prot C Funct Activity Pending Antithrombin III Ag Pending Func Antithrombin III Pending Factor V Leiden Mutat Pending Beta-2-GPI IgG Ab Pending Beta-2-GPI IgA Ab Pending Beta-2-GPI IgM Ab Pending Anti-Cardiolipin IgG Ab Pending Anti-Cardiolipin IgM Ab Pending Factor II DNA Analysis Pending Current Home Med List Medication Instructions Recorded Confirmed Type Escitalopram Oxalate [Lexapro] 10 mg PO DAILY 04/13/18 04/13/18 History Lisinopril [Zestril] 10 mg PO DAILY 04/13/18 04/13/18 History Aspirin [Aspirin, Baby] 81 mg PO DAILY@0800 tab.chew 04/15/18 Rx Atorvastatin Calcium [Lipitor] 80 mg PO QHS tablet 04/15/18 Rx Nystatin Powder [Mycostatin Powder] 1 applic TOPICAL BID bottle 01/07/19 Rx Pramipexole Di-HCl [Mirapex] 0.125 mg PO QHS tablet 04/15/18 Rx Current Medications Generic Name Dose Route Start Last Admin Trade Name Kitty PRN Reason Stop Dose Admin Aspirin 81 mg 04/14/18 08:00 04/15/18 09:18 Aspirin, Baby PO 81 mg DAILY@0800 MARIE Administration Atorvastatin Calcium 80 mg 04/13/18 22:00 04/14/18 20:40 Lipitor PO 80 mg QHS MARIE Administration Enoxaparin Sodium 40 mg 04/15/18 06:00 04/15/18 05:52 Lovenox SC 40 mg DAILY@0600 MARIE Administration Hydralazine HCl 5 mg 04/14/18 11:55 04/14/18 14:35 Apresoline Iv IV 5 mg Q4H PRN PRN Administration BLOOD PRESSURE Magnesium Hydroxide 30 ml 04/14/18 21:42 04/15/18 11:32 Milk Of Magnesia PO 30 ml DAILY PRN Administration Constipation Nystatin 1 applic 04/15/18 10:00 04/15/18 09:19 Mycostatin Powder TOPICAL 1 applic BID MARIE Administration Protocol Pramipexole Dihydrochloride 0.125 mg 04/14/18 00:30 04/14/18 20:40 Mirapex PO 0.125 mg QHS MARIE Administration Sodium Chloride 5 - 15 ml 04/13/18 14:00 IV UD PRN SALINE FLUSH Assessment/Plan 52 yo right handed white female with stroke risk factors including dm, htn, frank now with left bg infarct, not on asa at home, no history of tob. admitted to rehab with goal of restoring previous functional independence plan: pt for gait and balance ot for adls speech therapy for dysarthria stroke risk reduction: bp control, bs control, asa, statin, repeat cpap titration as OP, await hypercoag eval, await echo rls: on mirapex prn analgesics constipation: bowl protocol
--- NOTE | 2018-04-15 12:23 | HP.PCM_ITS ---
History of Present Illness Date of Admission: 04/15/18 Chief Complaint: cva, debility rehab h &p 52 yo right handed white female with history of dm, htn, presented to [facility] with right side weakness, diagnosed with left bg infarct. also history of RLS, took mirapex last night which helped. lives alone, one story house, one step. 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 workup otherwise unrevealing in hospital, now admitted to [facility] rehab with goal of restoring previous level of functional independence. currently reports constipation but no other complaints, tolerating regular diet. history of frank, good compliance but hasnt had repeat study in over 5 yrs Past Medical History Past Medical History (Chronic Problems): Chronic Problems Astrocytoma brain tumor (Chronic) Left parietal. HTN (hypertension) (Chronic) HLD (hyperlipidemia) (Chronic) Depression (Chronic) Allergies prednisone Adverse Reaction (Verified 04/13/18 13:50) Rash Home Medications: Ambulatory Orders Medication Instructions Recorded Escitalopram Oxalate [Lexapro] 10 mg PO DAILY 04/13/18 Lisinopril [Zestril] 10 mg PO DAILY 04/13/18 Aspirin [Aspirin, Baby] 81 mg PO DAILY@0800 tab.chew 04/15/18 Atorvastatin Calcium [Lipitor] 80 mg PO QHS tablet 04/15/18 Nystatin Powder [Mycostatin Powder] 1 applic TOPICAL BID bottle 04/15/18 Pramipexole Di-HCl [Mirapex] 0.125 mg PO QHS tablet 04/15/18 Surgical History: hysterectomy, - - Resection of left parietal cystic astrocytoma 1999. 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 Denies: Abdominal Pain, Nausea, Vomiting Genitourinary: Denies: Dysuria Musculoskeletal: Denies: Joint Pain, Joint Tenderness Skin: Denies: Rash, Wounds Neurological: Reports: Change in Speech, Focal weakness Psychiatric: Reports: Anxiety VTE Information - Inpt Only VTE Present on Admission: Yes VTE Pharm Prophylaxis ordered?: Yes Patient Problems: Active and Suspected Problems Stroke (Suspected) - Physical Exam General: Alert, Oriented x3, Cooperative, No apparent distress HEENT: Atraumatic, PERRLA, EOMI Neurological: Facial Droop - right, Slurred Speech, Sensory exam intact to light touch and pain, - - right arm flaccid right leg 2/5 Psych/Mental Status: Normal Affect, Alert and oriented to time, place, person, mood and affect Vital Signs Temp Pulse Resp BP Pulse Ox 37.3 C 76 16 161/89 H 94 04/15/18 11:27 04/15/18 11:27 04/15/18 11:27 04/15/18 11:27 04/15/18 11:27 Oxygen Flow Rate (L/min) 2 Oxygen Delivery Method Room Air Weight: 142.882 kg Body Mass Index (BMI) 50.8 Finger Stick Blood Glucose 110 Intake and Output for Last 24 Hours 04/13/18 04/14/18 04/15/18 23:59 23:59 23:59 Intake Total 850 / 850 750 / 750 Output Total 100 / 100 Balance 850 / 850 750 / 750 -100 / -100 Laboratory Tests Past 24 Hrs 04/15/18 06:05 Protein C Antigen Pending Functional Protein C Pending Prot C Funct Activity Pending Antithrombin III Ag Pending Func Antithrombin III Pending Factor V Leiden Mutat Pending Beta-2-GPI IgG Ab Pending Beta-2-GPI IgA Ab Pending Beta-2-GPI IgM Ab Pending Anti-Cardiolipin IgG Ab Pending Anti-Cardiolipin IgM Ab Pending Factor II DNA Analysis Pending Current Home Med List Medication Instructions Recorded Confirmed Type Escitalopram Oxalate [Lexapro] 10 mg PO DAILY 04/13/18 04/13/18 History Lisinopril [Zestril] 10 mg PO DAILY 04/13/18 04/13/18 History Aspirin [Aspirin, Baby] 81 mg PO DAILY@0800 tab.chew 04/15/18 Rx Atorvastatin Calcium [Lipitor] 80 mg PO QHS tablet 04/15/18 Rx Nystatin Powder [Mycostatin Powder] 1 applic TOPICAL BID bottle 01/07/19 Rx Pramipexole Di-HCl [Mirapex] 0.125 mg PO QHS tablet 04/15/18 Rx Current Medications Generic Name Dose Route Start Last Admin Trade Name Kitty PRN Reason Stop Dose Admin Aspirin 81 mg 04/14/18 08:00 04/15/18 09:18 Aspirin, Baby PO 81 mg DAILY@0800 MARIE Administration Atorvastatin Calcium 80 mg 04/13/18 22:00 04/14/18 20:40 Lipitor PO 80 mg QHS MARIE Administration Enoxaparin Sodium 40 mg 04/15/18 06:00 04/15/18 05:52 Lovenox SC 40 mg DAILY@0600 MARIE Administration Hydralazine HCl 5 mg 04/14/18 11:55 04/14/18 14:35 Apresoline Iv IV 5 mg Q4H PRN PRN Administration BLOOD PRESSURE Magnesium Hydroxide 30 ml 04/14/18 21:42 04/15/18 11:32 Milk Of Magnesia PO 30 ml DAILY PRN Administration Constipation Nystatin 1 applic 04/15/18 10:00 04/15/18 09:19 Mycostatin Powder TOPICAL 1 applic BID MARIE Administration Protocol Pramipexole Dihydrochloride 0.125 mg 04/14/18 00:30 04/14/18 20:40 Mirapex PO 0.125 mg QHS MARIE Administration Sodium Chloride 5 - 15 ml 04/13/18 14:00 IV UD PRN SALINE FLUSH Assessment/Plan 52 yo right handed white female with stroke risk factors including dm, htn, frank now with left bg infarct, not on asa at home, no history of tob. admitted to rehab with goal of restoring previous functional independence plan: pt for gait and balance ot for adls speech therapy for dysarthria stroke risk reduction: bp control, bs control, asa, statin, repeat cpap titration as OP, await hypercoag eval, await echo rls: on mirapex prn analgesics constipation: bowl protocol
--- NOTE | 2018-04-15 12:30 | REHABEVAL_ITS ---
Admission Information Status Changes from Prescreening?: No changes Identified Actual Problem List:: Pain, ALteration in Cmfrt, Cognitve Impr/Memory Loss, Bowel, Constipation, Alteration in Sleep, Alteration in Nutrition, Mobility Impaired, Self Care Deficit, Diabetes, Hyperglycemia, BP, Hypertension, Ineffect.D/C Plan r/t Psy Potential Problem List:: DVT, Bleeding, Infection, UTI, Aspiration, Falls, Skin Integrity, Depression Risk of Complications DVT: LMWH, ALLAN Hose, Sequential Compression Device Bleeding: Monitor Lab Values, Nursing to Teach Precautions for anti-coagulation therapy., Wound, if applicable, to be assessed every shift., Stroke patients assessed for lethargy or change in status. Infection: Clinical Staff to Monitor for S/S of infection:, S/S of infection include fever, redness, warmth, etc. Urinary Tract Infection: Monitor for frequency, burning, discomfort, or incontinence., Nursing will obtain urine sample for urinalysis and C&S when ordered. Aspiration: Clinical staff will monitor for coughing, drooling, congestion., Speech will evaluate swallowing and dsyphasia., Nursing will monitor patient swallowing during meals. Falls: Patient will be evaluated for Fall Precautions, Patient will be placed on Fall Precautions as indicated per protocol. Skin Breakdown: Nursing will assess skin daily using assessment tool., Nursing will place on Skin Breakdown Precautions as indicated. Pain: Clinical staff will assess patient's pain level per protocol., Medications will be given, if needed, and the pain level reassessed., Other methods: Massage, distraction, decrease stimulus, etc. used PRN. Plan of Care Patient requires physician specializing in physical medicine and rehab oversight to provide close medical supervision of rehab issues including: Pain Management, Sleep Problems, Bowel and Bladder, Medical and co-morbidity Management, DVT prophylaxis, Rehabilitation Leadership, Coordination of treatment team Patient needs Physical Therapy: For a minimum of 1 hour, At least 5 out of 7 days Patient needs Physical Therapy to improve:: Mobility, Mobility, Mobility, Strengthening, Transfers, Stretching, ROM, Endurance, Stairs, Gait, Balance Patient needs Occupational Therapy: For a minimum of 1 hour, At least 5 out of 7 days Patient needs Occupational Therapy to improve ADL's incl.: Eating, Grooming, Ba thing, Dressing, Toileting, Toilet transfers, Community Reintegration, Higher functioning activities, Household tasks, Adaptive Equipment, Splinting, Other activities as determined Patient requires speech therapy: For a minimum of 1 hour, At least 5 out of 7 days Patient requires speech therapy for: Swallowing, Cognition, Language Skills, Compensatory Strategies Patient requires 24/ Rehabilitation Nursing for: Pain Issues, Identifying and preventing risk factors, Monitoring and reporting current medical conditions, Assisting with ambulation, transfer, and all ADL's, Teaching patients about disease process and medications, Family teaching, Providing safe environment, Bowel and Bladder Issues, Skin integrity, Medication Management Patient needs Rattan Worker/ Case Management for: Discharge Planning, Arranging Home Equipment or Services, Family Interventions Patient needs Dietary and Nutrition Services for: Adequate Nutrition, Nutritional Supplements, Nutritional Education Goals Patient will remain: free from falls, or injury at time of discharge. Patient will perform bed mobility at: MOD I level of assist. Patient will complete transfers from bed to chair at: MOD I level of assist. Patient will ambulate: 100 feet, with MOD I assist, with LRD Patient will complete upper body dressing at: MOD I level of assist. Patient will complete lower body dressing at: MOD I level of assist. Patient will complete toileting at: MOD I level of assist. Patient will perform bathing at: MOD I level of assist. Patient will complete grooming at: MOD I level of assist. Patient will complete home management skills at: MOD I level of assist. Patient will achieve: 12 stairs, at MOD I assist Patient will have pain level of: of 3 or less Patient's skin will: remain intact, free from infection. Patient will receive: adequate nutrition. Discharge Planning Pt Prognosis for Sig. Practical Improv. w/in Reasonable Time: Good Anticipated D/C Destination: Home with Outpt Therapy Was Preadmission Assessment Accurate?: Yes
--- NOTE | 2018-04-15 13:24 | CASEMGMT ---
CHRISTO spoke with Jasmyn and Dr Barry is ok with patient coming today after she has her echo. CHRISTO notified CERTIFIED DIABETES EDUCATOR, Shilpi. CHRISTO will notify patient. Plan: [facility] 4th floor rehab unit [place]
--- NOTE | 2018-04-15 13:26 | DCINST_ITS ---
- Discharge Diagnoses Current Active Problems: Current Active and Chronic Problems Astrocytoma brain tumor (Chronic) Left parietal. HTN (hypertension) (Chronic) HLD (hyperlipidemia) (Chronic) Depression (Chronic) You will use the following diet at home:: No restrictions Discharge Activity: Return to Normal Activity Allergies/Adverse Reactions: Allergies prednisone Adverse Reaction (Verified 04/13/18 13:50) Rash Medications to take at Discharge Escitalopram Oxalate [Lexapro] 10 mg PO DAILY 04/13/18 Lisinopril [Zestril] 10 mg PO DAILY 04/13/18 Aspirin [Aspirin, Baby] 81 mg PO DAILY@0800 tab.chew 04/15/18 Atorvastatin Calcium [Lipitor] 80 mg PO QHS tablet 04/15/18 Nystatin Powder [Mycostatin Powder] 1 applic TOPICAL BID bottle 04/15/18 Pramipexole Di-HCl [Mirapex] 0.125 mg PO QHS tablet 04/15/18 Primary Care Physician: Lefty Paula DO [Primary Care Provider] - Please follow up with your Primary Care Physician in: 1 Week Test Results: Test results from this visit will be discussed in further detail at your follow- up appointment, if applicable. Please Follow Up With: René Barry MD When: 4 Weeks Proposed Discharge Date: 04/15/18
--- NOTE | 2018-04-15 13:27 | PCM.DC.SUM ---
<Kelli Sahu - Last Filed: 04/15/18 13:39> Discharge Date and Diagnosis Date of Admission: 04/15/18 Date of Discharge: 04/15/18 - Primary Discharge Diagnosis Active and Suspected Problems 1. Acute CVA, acute left basal ganglia infarct 2. Left parietal cystic astrocytoma 3. Hypertension 4. Hyperlipidemia 5. Depression 6. Restless leg syndrome 7. Mild dysphagia, secondary to #1 - Secondary Discharge Diagnosis Chronic Problems Astrocytoma brain tumor (Chronic) Left parietal. HTN (hypertension) (Chronic) HLD (hyperlipidemia) (Chronic) Depression (Chronic) Hospital Course and Treatment Imaging Results: Diagnostic Data Head CTA 04/13/18 09:15 IMPRESSION: 1. No CTA evidence of suspicious vaso-occlusive disease of the anterior and posterior intracranial circulation. 2. No CTA evidence of intracranial aneurysm, saccular or fusiform type. 3. Gyriform calcifications in the left occipital lobe are presumably dystrophic calcifications of old infarct. 4. Focal atrophy and cystic encephalomalacia from old cortical based ischemic infarct in the left parietal lobe. Electronically Signed: Evaristo Torres MD at 11:21 EST , Service support , ADDENDUM: 04/13/18 1137 Neck CTA 04/13/18 09:15 IMPRESSION: 1. Normal CTA of both common carotid arteries, both common carotid bifurcations and both internal and external carotid arteries. 2. Normal CTA of the vertebral arteries. 3. Normal CT of the aortic arch and origins of the great vessels. 4. Suspicious focal high-grade stenosis in the P2 segment of the left posterior cerebral artery (series 602, images 60-65). This may be a partially recanalized old embolic occlusion as there is no suspicious intrinsic small vessel asymptotically cc of the intracranial circulation on CTA head. 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 Electronically Signed: Evaristo Torres MD at 11:28 EST , Service support , ADDENDUM: 04/13/18 1141 Chest X-Ray 04/13/18 09:20 IMPRESSION: Cardiomegaly. Clear lungs. Electronically Signed: Ruben Johnson, at 9:39 EST Tel , Service support , Brain MRI 04/13/18 14:29 IMPRESSION: 1. Subacute ischemic infarct in the left periventricular white matter measuring 1.9 x 1.2 cm. This extends slightly towards the left posterior putamen. 2. Old cystic infarcts with focal atrophy in the left precuneus and left superior parietal lobule. 3. Chronic white matter ischemic changes in both cerebral hemispheres. Electronically Signed: Evaritso Torres MD at 10:00 EST , Service support , Brain CT 04/14/18 23:47 IMPRESSION: Previous left posterior parietal craniotomy with underlying encephalomalacia. Chronic parenchymal calcifications in the posterior parietal and occipital lobes. Chronic involutional changes of the brain. No demonstrated acute intracranial process. N.B. : The above information has been verbally conveyed by Heriberto Landeros MD to CAMILO HASKINS on 04/14/2018 00:37:35 (ET). Electronically Signed: Heriberto Landeros MD at 0:32 EST , Service support , Dr. Barry- Neurology Operations: None Procedures: 2-D Echocardiogram, - - Cookie swallow Summary of Care Provided: The patient is a 52 year old F admitted 04/13/2018 due to right-sided weakness. 1. Acute CVA, acute left basal ganglia infarct- Brain CT on admission with postsurgical changes from a left parietal occipital craniotomy. No definite intracranial masses. Neck CTA with suspicious isolated focal high-grade stenosis in the P2 segment of the left posterior cerebral artery. This may be a partially recommend lysed old embolic occlusion. Aspirin, statin. MRI of brain shows subacute ischemic infarct in the left periventricular white matter measuring 1.9 x 1.2 cm. Old cystic infarcts with focal atrophy in the left precuneus and left superior parietal lobule. Chronic white matter ischemic changes in both cerebral hemispheres. Neurology consulted during admission. Echocardiogram completed, report pending at discharge. Hypercoagulable panel pending. Rehab at [place] for further PT/OT/ST. Continue with dietary recommendations per speech therapy recommendations. Barium swallow prior to discharge. 2. Left parietal cystic astrocytoma-follows with [facility] with every 6 months MRI. Last reported to be stable. Previous tumor resection with chemo and radiation therapy in 1999. 3. Hypertension-permissive hypertension during admission. Home lisinopril regimen resume at [place] with further adjustments as necessary. 4. Hyperlipidemia-continue statin. 5. Depression-continue home Lexapro regimen. 6. Restless leg syndrome-started on Mirapex per neurology. General: Alert, Oriented x3, Cooperative HEENT: Atraumatic, PERRLA, EOMI, Normocephalic Neck: Supple, No JVD, Negative Carotid Bruits Lungs: Clear to auscultation, Normal air movement Cardiovascular: Regular rate, Regular Rhythm, Normal S1, Normal S2, No murmurs Abdomen: Bowel Sounds Present, Soft, Non Tender, Non-Distended, Obese Extremities: No clubbing, No cyanosis, No edema, Capillary Refill Less than 3 Seconds Skin: No rashes, No breakdown Musculoskeletal: No Tenderness to Palpation of Joints or Extremities Neurological: Sensory exam intact to light touch and pain, - - Dysarthria, right facial droop, flaccid right arm, right leg weakness 3/5 Psych/Mental Status: Normal Affect, Appropriate Patient seen and examined prior to discharge. Physical assessment as noted above. Patient is stable for discharge with follow up recommendations as noted above. This patient was seen by VENKAT Mcguire under the supervision of Dr. Valencia. - Physical Exam Vital Signs Temp Pulse Resp BP Pulse Ox 99.1 F 76 16 161/89 H 94 04/15/18 11:27 04/15/18 11:27 04/15/18 11:27 04/15/18 11:27 04/15/18 11:27 Oxygen Flow Rate (L/min) 2 Oxygen Delivery Method Room Air Weight: 315 lb 0.649 oz Body Mass Index (BMI) 50.8 Finger Stick Blood Glucose 110 Intake and Output for Last 24 Hours 04/13/18 04/14/18 04/15/18 23:59 23:59 23:59 Intake Total 850 / 850 750 / 750 Output Total 100 / 100 Balance 850 / 850 750 / 750 -100 / -100 Laboratory Tests Past 24 Hrs 04/15/18 06:05 Protein C Antigen Pending Functional Protein C Pending Prot C Funct Activity Pending Antithrombin III Ag Pending Func Antithrombin III Pending Factor V Leiden Mutat Pending Beta-2-GPI IgG Ab Pending Beta-2-GPI IgA Ab Pending Beta-2-GPI IgM Ab Pending Anti-Cardiolipin IgG Ab Pending Anti-Cardiolipin IgM Ab Pending Factor II DNA Analysis Pending Discharge Diet: No Restrictions Discharge Activity: Return to Normal Activity Home Medications: Medications to take at Discharge Escitalopram Oxalate [Lexapro] 10 mg PO DAILY 04/13/18 Lisinopril [Zestril] 10 mg PO DAILY 04/13/18 Aspirin [Aspirin, Baby] 81 mg PO DAILY@0800 tab.chew 04/15/18 Atorvastatin Calcium [Lipitor] 80 mg PO QHS tablet 04/15/18 Nystatin Powder [Mycostatin Powder] 1 applic TOPICAL BID bottle 04/15/18 Pramipexole Di-HCl [Mirapex] 0.125 mg PO QHS tablet 04/15/18 Primary Care Physician: Lefty Paula DO [Primary Care Provider] - Please follow up with your Primary Care Physician in: 1 Week Please Follow Up With: René Barry MD When: 4 Weeks Disposition: Inpt Rehab Unit/Facility Minutes spent on discharge:: 35 Patient Condition:: Stable Medical Necessity - Tobacco Use Smoking Status: Never smoker Tobacco Use: Non-smoker Meaningful Use Info Meaningful Use Diagnoses (Choose all that apply): Ischemic CVA - CVA Therapy Assessed for PT,OT and/or ST?: Yes - Ischemic Stroke Antithrombotic order at d/c?: Yes Dx of Atrial fib/flutter?: No Statins at discharge?: Yes Primary Dx Acute Ischemic CVA?: Yes IV tPA ordered during stay?: No Reason IV t-PA not ordered: Medical Contraindication <Anthony Valencia E - Last Filed: 04/15/18 14:02> Discharge Date and Diagnosis Date of Admission: 04/13/18 - Secondary Discharge Diagnosis Chronic Problems Astrocytoma brain tumor (Chronic) Left parietal. HTN (hypertension) (Chronic) HLD (hyperlipidemia) (Chronic) Depression (Chronic) Hospital Course and Treatment Imaging Results: 04/16/18 13:00 Cookie Swallow [Swallowing Function w/Video] [RAD] Urgent Summary of Care Provided: Hospitalist note: Discharge summary above reviewed and I agree with above discharge and treatment plan. Patient seen and examined on the day of discharge and appeared to be stable to be discharged home. Patient was admitted because of right-sided body weakness and facial droop, found to have acute left basal ganglia infarct. She does have right-sided hemiparesis as well as right-sided facial droop. CTA of the head and neck revealed no evidence of hemodynamically significant vascular disease or stenosis. EKG revealed normal sinus rhythm without evidence of cardiac arrhythmias. Her routine blood work was unremarkable. She was treated with aspirin and statins. Initially, her blood pressure was elevated and because of acute stroke, permissive hypertension allowed. He was continuing on lisinopril and her blood pressure improved. Echocardiogram done and report was pending at the time of discharge. Hypercoagulability workup sent and was pending at the time of discharge. Patient discharged to inpatient rehabilitation unit in a stable medical condition, discharged on aspirin and statins, continued on her home medications including lisinopril, Mirapex and Lexapro, recommended follow-up with PCP in 1 week and follow-up with neurology in 4 weeks. - Physical Exam General: Alert, Oriented x3, Cooperative, No apparent distress. HEENT: Atraumatic, PERRLA, EOMI. Neck: Supple, No JVD, Negative Carotid Bruits, Trachea Midline, Thyroid Normal. Lungs: Clear to auscultation, Normal air movement, No rhonchi, No wheeze, No rales. Cardiovascular: Regular rate, Regular Rhythm, Normal S1, Normal S2, PMI Normal. Abdomen: Bowel Sounds Present, Soft, Non Tender, Non-Distended, No Hepato-splenomegaly. Extremities: No clubbing, No cyanosis, No edema Skin: No rashes, No breakdown Neurological: Right facial droop, right-sided hemiparesis, more dense on the right upper extremity. This note was generated with [employer] dictation software. It may contain incorrect words, spelling, and punctuation that were not noted in checking the note before signing. - Physical Exam Vital Signs Temp Pulse Resp BP Pulse Ox 99.1 F 76 16 161/89 H 94 04/15/18 11:27 04/15/18 11:27 04/15/18 11:27 04/15/18 11:27 04/15/18 11:27 Oxygen Flow Rate (L/min) 2 Oxygen Delivery Method Room Air Weight: 315 lb 0.649 oz Body Mass Index (BMI) 50.8 Finger Stick Blood Glucose 110 Intake and Output for Last 24 Hours 04/13/18 04/14/18 04/15/18 23:59 23:59 23:59 Intake Total 850 / 850 750 / 750 Output Total 100 / 100 Balance 850 / 850 750 / 750 -100 / -100 Laboratory Tests Past 24 Hrs 04/15/18 06:05 Protein C Antigen Pending Functional Protein C Pending Prot C Funct Activity Pending Antithrombin III Ag Pending Func Antithrombin III Pending Factor V Leiden Mutat Pending Beta-2-GPI IgG Ab Pending Beta-2-GPI IgA Ab Pending Beta-2-GPI IgM Ab Pending Anti-Cardiolipin IgG Ab Pending Anti-Cardiolipin IgM Ab Pending Factor II DNA Analysis Pending Disposition: Inpt Rehab Unit/Facility Minutes spent on discharge:: 32 Patient Condition:: Stable Meaningful Use Info Meaningful Use Diagnoses (Choose all that apply): Ischemic CVA - CVA Therapy Assessed for PT,OT and/or ST?: Yes - Ischemic Stroke Antithrombotic order at d/c?: Yes Dx of Atrial fib/flutter?: No Reason anticoagulant not ordered: Treatment not Indicated Statins at discharge?: Yes Primary Dx Acute Ischemic CVA?: Yes IV tPA ordered during stay?: No Reason IV t-PA not ordered: Treatment not Indicated Code Visit Inpatient E&M: 67983 Disch Hosp
--- NOTE | 2018-04-15 13:32 | DS.PCM_ITS ---
<Kelli Sahu - Last Filed: 04/15/18 13:39> Discharge Date and Diagnosis Date of Admission: 04/15/18 Date of Discharge: 04/15/18 - Primary Discharge Diagnosis Active and Suspected Problems 1. Acute CVA, acute left basal ganglia infarct 2. Left parietal cystic astrocytoma 3. Hypertension 4. Hyperlipidemia 5. Depression 6. Restless leg syndrome 7. Mild dysphagia, secondary to #1 - Secondary Discharge Diagnosis Chronic Problems Astrocytoma brain tumor (Chronic) Left parietal. HTN (hypertension) (Chronic) HLD (hyperlipidemia) (Chronic) Depression (Chronic) Hospital Course and Treatment Imaging Results: Diagnostic Data Head CTA 04/13/18 09:15 IMPRESSION: 1. No CTA evidence of suspicious vaso-occlusive disease of the anterior and posterior intracranial circulation. 2. No CTA evidence of intracranial aneurysm, saccular or fusiform type. 3. Gyriform calcifications in the left occipital lobe are presumably dystrophic calcifications of old infarct. 4. Focal atrophy and cystic encephalomalacia from old cortical based ischemic infarct in the left parietal lobe. Electronically Signed: Evaristo Torres MD at 11:21 EST , Service support , ADDENDUM: 04/13/18 1137 Neck CTA 04/13/18 09:15 IMPRESSION: 1. Normal CTA of both common carotid arteries, both common carotid bifurcations and both internal and external carotid arteries. 2. Normal CTA of the vertebral arteries. 3. Normal CT of the aortic arch and origins of the great vessels. 4. Suspicious focal high-grade stenosis in the P2 segment of the left posterior cerebral artery (series 602, images 60-65). This may be a partially recanalized old embolic occlusion as there is no suspicious intrinsic small vessel asymptotically cc of the intracranial circulation on CTA head. 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 Electronically Signed: Evaristo Torres MD at 11:28 EST , Service support , ADDENDUM: 04/13/18 1141 Chest X-Ray 04/13/18 09:20 IMPRESSION: Cardiomegaly. Clear lungs. Electronically Signed: Ruben Johnson, at 9:39 EST Tel , Service support , Brain MRI 04/13/18 14:29 IMPRESSION: 1. Subacute ischemic infarct in the left periventricular white matter measuring 1.9 x 1.2 cm. This extends slightly towards the left posterior putamen. 2. Old cystic infarcts with focal atrophy in the left precuneus and left superior parietal lobule. 3. Chronic white matter ischemic changes in both cerebral hemispheres. Electronically Signed: Evaristo Torres MD at 10:00 EST , Service support , Brain CT 04/14/18 23:47 IMPRESSION: Previous left posterior parietal craniotomy with underlying encephalomalacia. Chronic parenchymal calcifications in the posterior parietal and occipital lobes. Chronic involutional changes of the brain. No demonstrated acute intracranial process. N.B. : The above information has been verbally conveyed by Heriberto Landeros MD to CAMILO HASKINS on 04/14/2018 00:37:35 (ET). Electronically Signed: Heriberto Landeros MD at 0:32 EST , Service support , Dr. Barry- Neurology Operations: None Procedures: 2-D Echocardiogram, - - Cookie swallow Summary of Care Provided: The patient is a 52 year old F admitted 04/13/2018 due to right-sided weakness. 1. Acute CVA, acute left basal ganglia infarct- Brain CT on admission with postsurgical changes from a left parietal occipital craniotomy. No definite intracranial masses. Neck CTA with suspicious isolated focal high-grade stenosis in the P2 segment of the left posterior cerebral artery. This may be a partially recommend lysed old embolic occlusion. Aspirin, statin. MRI of brain shows subacute ischemic infarct in the left periventricular white matter measuring 1.9 x 1.2 cm. Old cystic infarcts with focal atrophy in the left precuneus and left superior parietal lobule. Chronic white matter ischemic changes in both cerebral hemispheres. Neurology consulted during admission. Echocardiogram completed, report pending at discharge. Hypercoagulable panel pending. Rehab at [facility] for further PT/OT/ST. Continue with dietary recommendations per speech therapy recommendations. Barium swallow prior to discharge. 2. Left parietal cystic astrocytoma-follows with [facility] with every 6 months MRI. Last reported to be stable. Previous tumor resection with chemo and radiation therapy in 1999. 3. Hypertension-permissive hypertension during admission. Home lisinopril regimen resume at [facility] with further adjustments as necessary. 4. Hyperlipidemia-continue statin. 5. Depression-continue home Lexapro regimen. 6. Restless leg syndrome-started on Mirapex per neurology. General: Alert, Oriented x3, Cooperative HEENT: Atraumatic, PERRLA, EOMI, Normocephalic Neck: Supple, No JVD, Negative Carotid Bruits Lungs: Clear to auscultation, Normal air movement Cardiovascular: Regular rate, Regular Rhythm, Normal S1, Normal S2, No murmurs Abdomen: Bowel Sounds Present, Soft, Non Tender, Non-Distended, Obese Extremities: No clubbing, No cyanosis, No edema, Capillary Refill Less than 3 Seconds Skin: No rashes, No breakdown Musculoskeletal: No Tenderness to Palpation of Joints or Extremities Neurological: Sensory exam intact to light touch and pain, - - Dysarthria, right facial droop, flaccid right arm, right leg weakness 3/5 Psych/Mental Status: Normal Affect, Appropriate Patient seen and examined prior to discharge. Physical assessment as noted above. Patient is stable for discharge with follow up recommendations as noted above. This patient was seen by VENKAT Mcguire under the supervision of Dr. Valencia. - Physical Exam Vital Signs Temp Pulse Resp BP Pulse Ox 99.1 F 76 16 161/89 H 94 04/15/18 11:27 04/15/18 11:27 04/15/18 11:27 04/15/18 11:27 04/15/18 11:27 Oxygen Flow Rate (L/min) 2 Oxygen Delivery Method Room Air Weight: 315 lb 0.649 oz Body Mass Index (BMI) 50.8 Finger Stick Blood Glucose 110 Intake and Output for Last 24 Hours 04/13/18 04/14/18 04/15/18 23:59 23:59 23:59 Intake Total 850 / 850 750 / 750 Output Total 100 / 100 Balance 850 / 850 750 / 750 -100 / -100 Laboratory Tests Past 24 Hrs 04/15/18 06:05 Protein C Antigen Pending Functional Protein C Pending Prot C Funct Activity Pending Antithrombin III Ag Pending Func Antithrombin III Pending Factor V Leiden Mutat Pending Beta-2-GPI IgG Ab Pending Beta-2-GPI IgA Ab Pending Beta-2-GPI IgM Ab Pending Anti-Cardiolipin IgG Ab Pending Anti-Cardiolipin IgM Ab Pending Factor II DNA Analysis Pending Discharge Diet: No Restrictions Discharge Activity: Return to Normal Activity Home Medications: Medications to take at Discharge Escitalopram Oxalate [Lexapro] 10 mg PO DAILY 04/13/18 Lisinopril [Zestril] 10 mg PO DAILY 04/13/18 Aspirin [Aspirin, Baby] 81 mg PO DAILY@0800 tab.chew 04/15/18 Atorvastatin Calcium [Lipitor] 80 mg PO QHS tablet 04/15/18 Nystatin Powder [Mycostatin Powder] 1 applic TOPICAL BID bottle 04/15/18 Pramipexole Di-HCl [Mirapex] 0.125 mg PO QHS tablet 04/15/18 Primary Care Physician: Lefty Paula DO [Primary Care Provider] - Please follow up with your Primary Care Physician in: 1 Week Please Follow Up With: René Barry MD When: 4 Weeks Disposition: Inpt Rehab Unit/Facility Minutes spent on discharge:: 35 Patient Condition:: Stable Medical Necessity - Tobacco Use Smoking Status: Never smoker Tobacco Use: Non-smoker Meaningful Use Info Meaningful Use Diagnoses (Choose all that apply): Ischemic CVA - CVA Therapy Assessed for PT,OT and/or ST?: Yes - Ischemic Stroke Antithrombotic order at d/c?: Yes Dx of Atrial fib/flutter?: No Statins at discharge?: Yes Primary Dx Acute Ischemic CVA?: Yes IV tPA ordered during stay?: No Reason IV t-PA not ordered: Medical Contraindication <Anthony Valencia E - Last Filed: 04/15/18 14:02> Discharge Date and Diagnosis Date of Admission: 04/13/18 - Secondary Discharge Diagnosis Chronic Problems Astrocytoma brain tumor (Chronic) Left parietal. HTN (hypertension) (Chronic) HLD (hyperlipidemia) (Chronic) Depression (Chronic) Hospital Course and Treatment Imaging Results: 04/16/18 13:00 Cookie Swallow [Swallowing Function w/Video] [RAD] Urgent Summary of Care Provided: Hospitalist note: Discharge summary above reviewed and I agree with above discharge and treatment plan. Patient seen and examined on the day of discharge and appeared to be stable to be discharged home. Patient was admitted because of right-sided body weakness and facial droop, found to have acute left basal ganglia infarct. She does have right-sided hemiparesis as well as right-sided facial droop. CTA of the head and neck revealed no evidence of hemodynamically significant vascular disease or stenosis. EKG revealed normal sinus rhythm without evidence of cardiac arrhythmias. Her routine blood work was unremarkable. She was treated with aspirin and statins. Initially, her blood pressure was elevated and because of acute stroke, permissive hypertension allowed. He was continuing on lisinopril and her blood pressure improved. Echocardiogram done and report was pending at the time of discharge. Hypercoagulability workup sent and was pending at the time of discharge. Patient discharged to inpatient rehabili tation unit in a stable medical condition, discharged on aspirin and statins, continued on her home medications including lisinopril, Mirapex and Lexapro, recommended follow-up with PCP in 1 week and follow-up with neurology in 4 weeks. - Physical Exam General: Alert, Oriented x3, Cooperative, No apparent distress. HEENT: Atraumatic, PERRLA, EOMI. Neck: Supple, No JVD, Negative Carotid Bruits, Trachea Midline, Thyroid Normal. Lungs: Clear to auscultation, Normal air movement, No rhonchi, No wheeze, No rales. Cardiovascular: Regular rate, Regular Rhythm, Normal S1, Normal S2, PMI Normal. Abdomen: Bowel Sounds Present, Soft, Non Tender, Non-Distended, No Hepato- splenomegaly. Extremities: No clubbing, No cyanosis, No edema Skin: No rashes, No breakdown Neurological: Right facial droop, right-sided hemiparesis, more dense on the right upper extremity. This note was generated with [employer] dictation software. It may contain incorrect words, spelling, and punctuation that were not noted in checking the note before signing. - Physical Exam Vital Signs Temp Pulse Resp BP Pulse Ox 99.1 F 76 16 161/89 H 94 04/15/18 11:27 04/15/18 11:27 04/15/18 11:27 04/15/18 11:27 04/15/18 11:27 Oxygen Flow Rate (L/min) 2 Oxygen Delivery Method Room Air Weight: 315 lb 0.649 oz Body Mass Index (BMI) 50.8 Finger Stick Blood Glucose 110 Intake and Output for Last 24 Hours 04/13/18 04/14/18 04/15/18 23:59 23:59 23:59 Intake Total 850 / 850 750 / 750 Output Total 100 / 100 Balance 850 / 850 750 / 750 -100 / -100 Laboratory Tests Past 24 Hrs 04/15/18 06:05 Protein C Antigen Pending Functional Protein C Pending Prot C Funct Activity Pending Antithrombin III Ag Pending Func Antithrombin III Pending Factor V Leiden Mutat Pending Beta-2-GPI IgG Ab Pending Beta-2-GPI IgA Ab Pending Beta-2-GPI IgM Ab Pending Anti-Cardiolipin IgG Ab Pending Anti-Cardiolipin IgM Ab Pending Factor II DNA Analysis Pending Disposition: Inpt Rehab Unit/Facility Minutes spent on discharge:: 32 Patient Condition:: Stable Meaningful Use Info Meaningful Use Diagnoses (Choose all that apply): Ischemic CVA - CVA Therapy Assessed for PT,OT and/or ST?: Yes - Ischemic Stroke Antithrombotic order at d/c?: Yes Dx of Atrial fib/flutter?: No Reason anticoagulant not ordered: Treatment not Indicated Statins at discharge?: Yes Primary Dx Acute Ischemic CVA?: Yes IV tPA ordered during stay?: No Reason IV t-PA not ordered: Treatment not Indicated Code Visit Inpatient E&M: [id number] Disch Hosp
--- NOTE | 2018-04-15 14:39 | CASEMGMT ---
CHRISTO spoke with patient and let her know Rehab accepted her. SW also let her know her son called and SW updated him on her d/c plan. Plan: [facility] 4th floor rehab unit [facility]
[2018-04-16 08:46] LABS: Bedside Glucose 110 mg/dL (70-110)
[2018-04-22 14:07] LABS: Protein C Antigen 121 % (60-150); Protein C, Functional 129 % (73-180)
[2018-04-23 09:09] LABS: Anti-Cardiolipin Ab, IgG, Qn < 9 GPL U/mL (0-14); Anti-Cardiolipin Ab, IgM, Qn < 9 MPL U/mL (0-12); Anti-Thrombin 3 AG, Immunol 86 % (72-124); Antithrombin 3 Function 102 % (75-135); Beta-2-Glycoprotein I IgA <9 (0-25); Beta-2-Glycoprotein I IgG <9 (0-20); Beta-2-Glycoprotein I IgM <9 (0-32)
== END 2018-04-15 15:45 | DRG 65 ==
LOC: ED 12:10 → PCU 12:22
PROVIDERS: Nurse Practitioner Family; Admitting Provider Internal Medicine; Emergency Provider Emergency Medicine; Family Provider Preventive Medicine Occupational Medicine; PCP Preventive Medicine Occupational Medicine; Referring Provider Internal Medicine; Visit Provider Hospitalist
DX: I63.9 Cerebral infarction, unspecified (principal); C71.9 Malignant neoplasm of brain, unspecified; G81.91 Hemiplegia, unspecified affecting right dominant side; Z68.43 Body mass index [BMI] 50.0-59.9, adult; R29.706 NIHSS score 6; Z92.3 Personal history of irradiation; F32.9 Major depressive disorder, single episode, unspecified; G25.81 Restless legs syndrome; E78.5 Hyperlipidemia, unspecified; I10 Essential (primary) hypertension; R47.1 Dysarthria and anarthria; R29.810 Facial weakness; E66.9 Obesity, unspecified
CPT/HCPCS: 36415; 70450; 70496; 70498; 70553; 71045; 80048; 80061; 80320; 81001; 81240; 81241; 82728; 82962; 84484; 85025; 85300; 85301; 85302; 85303; 85610; 85730; 86146; 86147; 92523; 92526; 93005; 93306; 97163; 97166; 97530; 99285; A9585; J7030; Q9957; Q9967; A4216; C8929; G0480

== ENCOUNTER 2018-04-15 16:03 | Inpatient (IN) | payer MEDICARE, MEDICAID, SELFPAY ==
[2018-04-15 12:23] VITALS: BMI 50.8
[2018-04-15 16:25] VITALS: BP 177/92; PULSE 78; RESP 18; TEMP 36.7; O2SAT 94; BMI 48.5
[2018-04-15] MEDS: NYSTATIN 500,000 UNIT/5 ML UDC 500000 UNIT PO ×2 (19:01→21:29)
[2018-04-15 20:05] VITALS: BMI 48.5
[2018-04-15 20:45] VITALS: BMI 48.5
--- NOTE | 2018-04-15 20:48 | NURSING ---
Pt has not had flu vaccine this flu season and refused getting one while here.
[2018-04-15 21:02] VITALS: BP 144/76; PULSE 84; RESP 18; TEMP 36.8; O2SAT 93
[2018-04-15] MEDS: Nystatin Powder 15gm Bottle 1 APPLIC TOPICAL (21:24)
[2018-04-15] MEDS: Senna/Docusate Sodium 1 Tablet 2 TABLET PO (21:27)
[2018-04-15] MEDS: Pramipexole Di-HCl 0.125 MG Tablet PO (21:27)
[2018-04-15] MEDS: Atorvastatin Calcium 80 MG Tablet PO (21:27)
[2018-04-15] MEDS: Menthol/Lanolin/Calamine/Znox 113 GM Tube 1 APPLIC TOPICAL (21:28)
[2018-04-16 06:26] LABS: Absolute Lymphocyte Count 1.44 X10^3/ul (0.83-4.51); Absolute Neutrophil Count 4.6 X10^3/uL (2.0-7.7); Basophil# 0.01 X10^3/uL; Basophil% 0.2 % (0-1); Eosinophil# 0.17 X10^3/uL; Eosinophils% 2.6 % (0-5); Hematocrit 42.9 % (37-47); Hemoglobin 13.8 g/dl (12.0-15.0); Lymphocyte # 1.44 X10^3/ul (4.0); Lymphocyte % 21.7 % (19-41); Mean Corp Hgb Conc 32.2 g/gl (32-36); Mean Corpuscular Volume 93.3 fL (81-99); Mean Platelet Vol. 9.8 fl (6.2-12.0); Monocyte# 0.43 X10^3/uL; Monocyte% 6.5 % (0-10); Neutrophil # 4.57 X10^3/uL (2.7-7.7); Neutrophil % 68.8 % (47-70); Platelet Count 229 K/mm3 (150-450); RBC Distribution Width CV 14.3 % (11.6-14.6); RBC Distribution Width SD 46.6 fl (35.1-43.9); White Blood Count 6.6 K/mm3 (4.4-11.0)
[2018-04-16 06:27] LABS: POSITIVE COUNT NO; POSITIVE DIFFERENTIAL NO; POSITIVE MORPHOLOGY NO
[2018-04-16 06:31] LABS: ALB/GLOB Ratio 0.9 RATIO (0.9-2.4); AST(SGOT) 13 U/L (15-37); Alanine Aminotransfer ALT/SGPT 25 U/L (13-56); Albumin, Serum 3.6 g/dL (3.2-5.0); Alkaline Phosphatase 74 U/L (45-117); Anion Gap 9 (5-15); BUN 13 mg/dL (7-18); BUN/Creat Ratio 16.3 RATIO (10-20); Calcium,Total 8.8 mg/dL (8.5-10.1); Chloride 108 mmol/L (98-107); EST Glomerular Filtration Rate 80 mL/min (>60); Est Glom Filt Rate - Afr Amer 97 mL/min (>60); Estimated Creatinine Clearance 79.99 ml/min; Globulin 3.9 g/dL (2.2-4.2); Glucose 96 mg/dL (74-106); Magnesium 2.4 mg/dL (1.6-2.6); Phosphorus 4.1 mg/dL (2.5-4.9); Potassium 3.8 mmol/L (3.5-5.1); Protein, Total 7.5 g/dL (6.4-8.2); Sodium Level 144 mmol/L (136-145)
[2018-04-16 06:54] VITALS: O2SAT 97
[2018-04-16] MEDS: Aspirin 81 MG TAB.CHEW PO (07:41)
[2018-04-16] MEDS: Senna/Docusate Sodium 1 Tablet 2 TABLET PO ×2 (07:41→22:34)
[2018-04-16] MEDS: Escitalopram Oxalate 10 MG Tablet PO (07:41)
[2018-04-16] MEDS: Enoxaparin 40 MG/0.4 ML Syringe SC (07:41)
[2018-04-16] MEDS: Clopidogrel Bisulfate 75 MG Tablet PO (07:41)
[2018-04-16 08:50] VITALS: BP 153/86; PULSE 68; RESP 18; TEMP 36.8; O2SAT 97
[2018-04-16 09:40] VITALS: PULSE 80
[2018-04-16] MEDS: NYSTATIN 500,000 UNIT/5 ML UDC 500000 UNIT PO ×4 (09:52→22:33)
[2018-04-16] MEDS: Nystatin Powder 15gm Bottle 1 APPLIC TOPICAL ×2 (09:52→22:34)
[2018-04-16] MEDS: Acyclovir 800 MG Tablet PO ×4 (11:02→22:34)
[2018-04-16 12:25] VITALS: BMI 48.5
--- NOTE | 2018-04-16 13:00 | SP.MBSS_ITS ---
PRIMARY / SECONDARY DIAGNOSIS: CVA/dysphagia REFERRING PHYSICIAN: Dr. Barry CURRENT DIET: mechanical soft/nectar thickened DENTITION: present MENTAL STATUS: WFL for participation in MBS RESPIRATORY STATUS: oxygenating on room air PREVIOUS MODIFIED BARIUM SWALLOW STUDY: n/a REASON FOR REFERRAL: Pt is a 52 y/o right handed female who presented to the ED d/t R sided weakness and expressive aphasia. MRI revealed an acute left periventricular small vessel distribution infarct. There is also cystic encephalomalacia in the left parieto-occipital lobe posteriorly. CTA of the head and neck was also reviewed, no significant stenosis although the report does describe focal stenosis in the left P2 distribution. Further assessment of swallow function under fluoroscopy to further assess pharyngeal swallow function and rule out silent aspiration. MEDICAL HISTORY: left parietal astrocytoma brain tumor, hypertension, hyperlipidemia, HAROLDO w/ nightly CPaP use & depression STUDY FINDINGS: Patient participated in a Modified Barium Swallow (MBS) study on 10/18/2016. Dr. Ott was the radiologist present for this evaluation. This study was recorded in the lateral view and images were sent to PACs for storage. The following consistencies were presented to this patient for analysis of oropharyngeal swallow function: thin liquid, pudding, and a regular textured, [place] cookie. Results of the MBS are as follows: PENETRATION / ASPIRATION SCALE (TERAN): 1 = does not enter airway 2 = enters airway/above vocal folds/ejected 3 = enters airway/above vocal folds/not ejected 4 = enters airway/contacts vocal folds/ejected 5 = enters airway/contacts vocal folds/not ejected 6 = enters airway/below vocal folds/ejected 7 = enters airway/below vocal folds/not ejected despite effort 8 = enters airway/below vocal folds/no effort PENETRATION / ASPIRATION SCALE (SCORE): 1. Thin liquid via teaspoon: 2 = enters airway/above vocal folds/ejected 2. Thin liquid via teaspoon: 2 = enters airway/above vocal folds/ejected 3. Thin liquid via cup: 2 = enters airway/above vocal folds/ejected 4. Thin liquid via cup: 4 = enters airway/contacts vocal folds/ejected 5. [place] thickened liquid via cup: 2 = enters airway/above vocal folds/ejected 6. [place] thickened liquid via cup: 2 = enters airway/above vocal folds/ejected 7. Puddin = does not enter airway 8. ? [place] Shortbread Cookie: 1 = does not enter airway 9. Thin liquid via cup: 4 = enters airway/contacts vocal folds/ejected 10. Thin liquid via cup w/ chin tuck: 2 = enters airway/above vocal folds/ejected 11. Thin liquid via cup, sequential swallows: 2 = enters airway/above vocal folds/ejected IMPRESSION ORAL PHASE CHARACTERIZED BY: LABIAL SEAL: interlabial escape, no progression to anterior lip TONGUE CONTROL DURING BOLUS MANIPULATION: escape to lateral buccal cavity/floor of mouth BOLUS PREPARATION / MASTICATION: slow prolonged chewing/mashing with complete recollection BOLUS TRANSPORT / LINGUAL MOTION: slowed tongue motion ORAL RESIDUE: residue collection on oral structures PHARYNGEAL PHASE CHARACTERIZED BY: INITIATION OF PHARYNGEAL SWALLOW: bolus head in pyriforms at first hyoid excursion SOFT PALATE ELEVATION: no bolus between soft palate and pharyngeal wall LARYNGEAL ELEVATION: partial superior movement of thyroid cartilage/partial approximation of arytenoids cartilage to epiglottic petiole ANTERIOR HYOID EXCURSION: partial anterior movement EPIGLOTTIC MOVEMENT: complete epiglottic inversion LARYNGEAL VESTIBULE CLOSURE AT HEIGHT OF SWALLOW: complete laryngeal vestibule closure with no air/contrast in laryngeal vestibule PHARYNGEAL STRIPPING WAVE: pharyngeal stripping wave present / complete PHARYNGOESOPHAGEAL SEGMENT OPENING: complete distension and complete duration with no obstruction of flow TONGUE BASE RETRACTION: narrow column of contrast between tongue base and posterior pharyngeal wall PHARYNGEAL RESIDUE: collection of residue within or on pharyngeal structures (base of tongue) ESOPHAGEAL PHASE CHARACTERIZED BY: ESOPHAGEAL BOLUS CLEARANCE IN THE UPRIGHT POSITION: could not view EFFECTS OF TREATMENT STRATEGIES ATTEMPTED: Chin tuck posture = ineffective Double swallow = effective Reduced bolus size = effective INTERPRETATION OF RESULTS: Patient presents with mild to moderate oropharyngeal dysphagia (R13.12) secondary to left periventricular small vessel distribution infarct. The oral phase is primarily marked by a mild mastication inefficiency w/ suboptimal lingual control resulting in premature pharyngeal bolus entry to the level of the pyriform sinuses w/ penetration before and during the swallow. Reduced oral clearance secondary to reduced intraoral strength resulting in residue retention (lingual surface w/ minimal right buccal accumulation) across all consistencies requiring an additional swallow to clear. The pharyngeal phase primarily marked by delayed pharyngeal swallow onset timing resulting in suboptimal bolus location upon swallow onset contributing to laryngeal vestibule penetration before and during the swallow. Reduce laryngeal elevation and anterior hyoid elevation were noted resulting in delayed closure of the airway during deglutition. Residue retention remained along the base of tongue post deglutition d/t poor tongue base retraction. Oropharyngeal residue retention post deglutition was effectively cleared w/ a cued double swallow. Laryngeal vestibule penetration occurred w/ both thin and nectar thickened liquids, although thin liquids contacted the vocal folds prior to complete ejection. Penetration was reduced when liquid volume was adjusted. Cough noted 1x w/ thin liquid penetration that spilled to the pyriforms and entered the laryngeal vestibule pre- prandially. Cannot rule out aspiration, as view was obscured d/t patient?s body habitus and fluoroscopy suite limitations. RECOMMENDATIONS DIET: mechanical soft textures/nectar thickened liquids COMPENSATORY STRATEGIES RECOMMENDED: Supervision, small bites, small sips, double swallow w/ all liquids to ameliorate oropharyngeal residue retention, seated upright at 90 degrees during PO intake, remain upright for 30-60 minutes post meal (GERD precaution). CHADWICK FREE WATER PROTOCOL (FFWP): Recommend implementation of the [place] Free Water Protocol (FFWP) following patient education, as continued manipulation of thin liquids with above recommended aspiration precautions may promote improved hydration and improved intraoral bolus control during initiation and execution of the swallow to facilitate improved airway protection and upgrade to least restrictive means of PO intake (thin liquids). NEED FOR SKILLED ST SERVICES: Patient requires intensive skilled speech- language intervention targeting * diet texture management * training and implementation of recommended compensatory strategies * oral strengthening exercises to facilitate improved lingual/labial control * oropharyngeal strengthening exercises to facilitate improved swallow onset timing and laryngeal vestibule closure pharyngeal motility * training & implementation of the [place] Free Water Protocol ADDITIONAL COMMENTS/RECOMMENDATIONS: Results and recommendations were discussed with the Patient immediately following MBS completion, with the Patient verbalizing understanding and agreement with all recommendations and education provided. Kimmy Cassidy M.A. CCC-HOSIERY LOOPER [place] [address] [email or web address]
--- NOTE | 2018-04-16 13:15 | RAD_ITS ---
STUDY: SWALLOWING STUDY REASON FOR EXAM: Female, 52 years old. CVA. TECHNIQUE: The examination was performed with Speech Pathology in attendance. Under fluoroscopic observation, the patient ingested thin barium, thick barium, barium pudding, and barium coated cracker. FLUOROSCOPY TIME: 2:42 minutes/seconds. 2413 spot views were obtained. RADIOLOGIST INVOLVEMENT: Radiologist was present and providing direct supervision. COMPARISON: None. FINDINGS: The following was observed during swallowing of the various mixtures of barium: Thin Barium: Transient penetration with ingestion of thin liquids. This is unchanged with the chin tuck maneuver. Thick Barium: There was no evidence of aspiration or laryngeal penetration. Barium Pudding: There was no evidence of aspiration or laryngeal penetration. Barium Coated Cracker: There was no evidence of aspiration or laryngeal penetration. RAD/Swallowing Function w/Video IMPRESSION: Transient penetration with ingestion of thin liquids. The swallow study findings were discussed with the patient by the speech pathologist at the conclusion of the examination. Please see speech pathology report for more information and recommendations. Electronically Signed: Otoniel Ott MD at 15:57 EST Tel [phone], Service support ,
[2018-04-16] MEDS: Menthol/Lanolin/Calamine/Znox 113 GM Tube 1 APPLIC TOPICAL ×2 (13:58→22:34)
--- NOTE | 2018-04-16 15:14 | PCM.PROGNOTE ---
Subjective: Chief complaint: Follow-up after consultation following admission to inpatient rehab unit after patient suffered acute ischemic infarct of the left basal ganglia with resultant right-sided hemiplegia and right facial droop. Patient seen and examined. No acute events overnight. She still having significant weakness on the right side with facial droop. Nursing staff reported that patient was able to stand on her right leg today with assist. She underwent swallowing study today and kept on nectar thick liquids for diet. Denies any chest pain or shortness of breath. Her vital signs are stable, blood pressure at goal. - Physical Exam General: Alert, Oriented x3, Cooperative, No apparent distress HEENT: Atraumatic, PERRLA, EOMI, Normocephalic Oral: Moist Mucosa, No Gingival or Mucosal Lesions/ Ulcerations Neck: Supple, No JVD, Negative Carotid Bruits, Trachea Midline, Thyroid Normal Size and Texture Lungs: Clear to auscultation, No rhonchi, No wheeze, No rales, Diminished Cardiovascular: Regular rate, Regular Rhythm, Normal S1, Normal S2, No murmurs, PMI Normal Abdomen: Bowel Sounds Present, Soft, Non Tender, Non-Distended, No Hepato-splenomegaly Extremities: No clubbing, No cyanosis, No edema Skin: No rashes, No breakdown Lymphatic: No Cervical, Supraclavicular, or Inguinal Adenopathy Neurological: - - Right-sided facial droop, right side hemiplegia. Psych/Mental Status: Normal Affect, Appropriate, Alert and oriented to time, place, person, mood and affect Vital Signs Temp Pulse Resp BP Pulse Ox 98.2 F 80 18 153/86 H 97 04/16/18 08:50 04/16/18 09:40 04/16/18 08:50 04/16/18 08:50 04/16/18 08:50 Oxygen Delivery Method Room Air Weight: 309 lb 15.519 oz Body Mass Index (BMI) 48.5 Finger Stick Blood Glucose 110 Intake and Output for Last 24 Hours 04/14/18 04/15/18 04/16/18 23:59 23:59 23:59 Intake Total 120 / 120 500 / 500 Output Total 650 / 650 Balance 120 / 120 -150 / -150 Laboratory Tests Past 24 Hrs 04/16/18 04/16/18 05:25 05:25 WBC 6.6 RBC 4.60 Hgb 13.8 Hct 42.9 MCV 93.3 MCH 30.0 MCHC 32.2 RDW 14.3 RDW Differential 46.6 H Plt Count 229 MPV 9.8 Immature Gran % (Auto) 0.200 Neut % (Auto) 68.8 Lymph % (Auto) 21.7 [place] % (Auto) 6.5 Eos % (Auto) 2.6 Baso % (Auto) 0.2 Absolute Neuts (auto) 4.6 Absolute Lymphs (auto) 1.44 Total Counted Not Reportable Sodium 144 Potassium 3.8 Chloride 108 H Carbon Dioxide 27.0 Anion Gap 9 BUN 13 Creatinine 0.80 Estim Creat Clear Calc 79.99 Est GFR (MDRD) Af Amer 97 Est GFR (MDRD) Non-Af 80 BUN/Creatinine Ratio 16.3 Glucose 96 Calcium 8.8 Phosphorus 4.1 Magnesium 2.4 Total Bilirubin 0.60 AST 13 L ALT 25 Alkaline Phosphatase 74 Total Protein 7.5 Albumin 3.6 Globulin 3.9 Albumin/Globulin Ratio 0.9 Medical Necessity - Tobacco Use Smoking Status: Never smoker Tobacco Use: Non-smoker Assessment/Plan This is a 52 years old female patient admitted to inpatient rehab unit after she suffered acute ischemic infarct of the left basal ganglia with resultant right-sided hemiplegia and right facial droop and I am seeing this patient for follow-up after consultation for medical management. #1 status post acute ischemic infarct of the left basal ganglia: With resultant right-sided hemiplegia and right facial droop. Patient is on aspirin, Plavix and statins. Her blood pressure is under control, at goal. Her routine blood work today was unremarkable. Imaging study including MRI brain, CTA of the head and neck as well as 2D echocardiogram reviewed. Plan to continue PT OT according to rehab team. #2 stable zoster: In her back, small area of blistering. Started on Zovirax. #3 dysphagia: Secondary to acute stroke. She had a swallowing study today, speech therapy recommended to continue nectar thick liquid at this time, continue speech therapy. #4 hypertension: Blood pressure stable, continue lisinopril. #5 hyperlipidemia: Continue statins. #6 restless leg syndrome: Continue Mirapex. #7 depression: Stable, continue Lexapro. #8 DVT prophylaxis: Subcu Lovenox. This note was generated with [email or web address] software. It may contain incorrect words, spelling, and punctuation that were not noted in checking the note before signing. Code Visit Inpatient E&M: 03867 Subs Hosp L2
--- NOTE | 2018-04-16 15:20 | PN_ITS ---
Subjective: Chief complaint: Follow-up after consultation following admission to inpatient rehab unit after patient suffered acute ischemic infarct of the left basal ganglia with resultant right-sided hemiplegia and right facial droop. Patient seen and examined. No acute events overnight. She still having significant weakness on the right side with facial droop. Nursing staff reported that patient was able to stand on her right leg today with assist. She underwent swallowing study today and kept on nectar thick liquids for diet. Denies any chest pain or shortness of breath. Her vital signs are stable, blood pressure at goal. - Physical Exam General: Alert, Oriented x3, Cooperative, No apparent distress HEENT: Atraumatic, PERRLA, EOMI, Normocephalic Oral: Moist Mucosa, No Gingival or Mucosal Lesions/ Ulcerations Neck: Supple, No JVD, Negative Carotid Bruits, Trachea Midline, Thyroid Normal Size and Texture Lungs: Clear to auscultation, No rhonchi, No wheeze, No rales, Diminished Cardiovascular: Regular rate, Regular Rhythm, Normal S1, Normal S2, No murmurs, PMI Normal Abdomen: Bowel Sounds Present, Soft, Non Tender, Non-Distended, No Hepato-spleno megaly Extremities: No clubbing, No cyanosis, No edema Skin: No rashes, No breakdown Lymphatic: No Cervical, Supraclavicular, or Inguinal Adenopathy Neurological: - - Right-sided facial droop, right side hemiplegia. Psych/Mental Status: Normal Affect, Appropriate, Alert and oriented to time, place, person, mood and affect Vital Signs Temp Pulse Resp BP Pulse Ox 98.2 F 80 18 153/86 H 97 04/16/18 08:50 04/16/18 09:40 04/16/18 08:50 04/16/18 08:50 04/16/18 08:50 Oxygen Delivery Method Room Air Weight: 309 lb 15.519 oz Body Mass Index (BMI) 48.5 Finger Stick Blood Glucose 110 Intake and Output for Last 24 Hours 04/14/18 04/15/18 04/16/18 23:59 23:59 23:59 Intake Total 120 / 120 500 / 500 Output Total 650 / 650 Balance 120 / 120 -150 / -150 Laboratory Tests Past 24 Hrs 04/16/18 04/16/18 05:25 05:25 WBC 6.6 RBC 4.60 Hgb 13.8 Hct 42.9 MCV 93.3 MCH 30.0 MCHC 32.2 RDW 14.3 RDW Differential 46.6 H Plt Count 229 MPV 9.8 Immature Gran % (Auto) 0.200 Neut % (Auto) 68.8 Lymph % (Auto) 21.7 [place] % (Auto) 6.5 Eos % (Auto) 2.6 Baso % (Auto) 0.2 Absolute Neuts (auto) 4.6 Absolute Lymphs (auto) 1.44 Total Counted Not Reportable Sodium 144 Potassium 3.8 Chloride 108 H Carbon Dioxide 27.0 Anion Gap 9 BUN 13 Creatinine 0.80 Estim Creat Clear Calc 79.99 Est GFR (MDRD) Af Amer 97 Est GFR (MDRD) Non-Af 80 BUN/Creatinine Ratio 16.3 Glucose 96 Calcium 8.8 Phosphorus 4.1 Magnesium 2.4 Total Bilirubin 0.60 AST 13 L ALT 25 Alkaline Phosphatase 74 Total Protein 7.5 Albumin 3.6 Globulin 3.9 Albumin/Globulin Ratio 0.9 Medical Necessity - Tobacco Use Smoking Status: Never smoker Tobacco Use: Non-smoker Assessment/Plan This is a 52 years old female patient admitted to inpatient rehab unit after she suffered acute ischemic infarct of the left basal ganglia with resultant right- sided hemiplegia and right facial droop and I am seeing this patient for follow- up after consultation for medical management. #1 status post acute ischemic infarct of the left basal ganglia: With resultant right-sided hemiplegia and right facial droop. Patient is on aspirin, Plavix and statins. Her blood pressure is under control, at goal. Her routine blood work today was unremarkable. Imaging study including MRI brain, CTA of the head and neck as well as 2D echocardiogram reviewed. Plan to continue PT OT according to rehab team. #2 stable zoster: In her back, small area of blistering. Started on Zovirax. #3 dysphagia: Secondary to acute stroke. She had a swallowing study today, speech therapy recommended to continue nectar thick liquid at this time, continue speech therapy. #4 hypertension: Blood pressure stable, continue lisinopril. #5 hyperlipidemia: Continue statins. #6 restless leg syndrome: Continue Mirapex. #7 depression: Stable, continue Lexapro. #8 DVT prophylaxis: Subcu Lovenox. This note was generated with [employer] software. It may contain incorrect words, spelling, and punctuation that were not noted in checking the note before signing. Code Visit Inpatient E&M: 99066 Subs Hosp L2
[2018-04-16 18:55] VITALS: BP 146/95; PULSE 85; RESP 18; TEMP 36.9; O2SAT 95
[2018-04-16] MEDS: Atorvastatin Calcium 80 MG Tablet PO (22:33)
[2018-04-16] MEDS: Pramipexole Di-HCl 0.125 MG Tablet PO (22:33)
[2018-04-17 01:07] VITALS: BMI 48.5
[2018-04-17] MEDS: Acyclovir 800 MG Tablet PO ×5 (06:01→21:00)
[2018-04-17 07:00] VITALS: BP 162/112; PULSE 78; RESP 20; TEMP 36.7; O2SAT 95
[2018-04-17 07:31] LABS: Bedside Glucose 106 mg/dL (70-110)
[2018-04-17] MEDS: Clopidogrel Bisulfate 75 MG Tablet PO (08:13)
[2018-04-17] MEDS: Aspirin 81 MG TAB.CHEW PO (08:13)
[2018-04-17] MEDS: Escitalopram Oxalate 10 MG Tablet PO (08:13)
[2018-04-17] MEDS: NYSTATIN 500,000 UNIT/5 ML UDC 500000 UNIT PO ×3 (08:13→21:00)
[2018-04-17] MEDS: Enoxaparin 40 MG/0.4 ML Syringe SC (08:13)
[2018-04-17] MEDS: Menthol/Lanolin/Calamine/Znox 113 GM Tube 1 APPLIC TOPICAL ×2 (08:58→21:03)
[2018-04-17] MEDS: Nystatin Powder 15gm Bottle 1 APPLIC TOPICAL ×2 (08:58→21:01)
[2018-04-17 10:39] VITALS: O2SAT 95
--- NOTE | 2018-04-17 11:09 | PCM.PN.NEU ---
Subjective: Patient seen, sitting quietly in bedside recliner, No new complaints, tolerating therapy. Started on Acyclovir for shingles, tolerating medication. No issues with GI/. She walked today using the handrail in the hallway with assist of two and wheelchair follow. - Physical Exam General: Alert, Oriented x3, Cooperative HEENT: Atraumatic, PERRLA, EOMI, Normocephalic Neck: Supple, No JVD, Negative Carotid Bruits Lungs: Clear to auscultation, Normal air movement Cardiovascular: Regular rate, No murmurs Abdomen: Bowel Sounds Present, Soft, Non Tender Extremities: No edema, Capillary Refill Less than 3 Seconds Skin: No rashes, No breakdown Musculoskeletal: No Tenderness to Palpation of Joints or Extremities Neurological: Cranial nerves II-XII grossly intact Psych/Mental Status: Normal Affect, Appropriate, Alert and oriented to time, place, person, mood and affect Vital Signs Temp Pulse Resp BP Pulse Ox 98.1 F 78 20 H 162/112 H 95 04/17/18 07:00 04/17/18 07:00 04/17/18 07:00 04/17/18 07:00 04/17/18 10:39 Oxygen Delivery Method Room Air Weight: 140.6 kg Body Mass Index (BMI) 48.5 Finger Stick Blood Glucose 110 Intake and Output for Last 24 Hours 04/15/18 04/16/18 04/17/18 23:59 23:59 23:59 Intake Total 120 / 120 940 / 940 240 / 240 Output Total 1050 / 1050 Balance 120 / 120 -110 / -110 240 / 240 POC Glucose 04/17/18 06:57 POC Glucose 106 Active Medications Acyclovir (Zovirax) 800 mg PO 5X/DAY [facility] Stop: 04/23/18 10:19 Last Admin: 04/17/18 09:52 Dose: 800 mg Aspirin (Aspirin, Baby) 81 mg PO DAILY@0800 [facility] Last Admin: 04/17/18 08:13 Dose: 81 mg Atorvastatin Calcium (Lipitor) 80 mg PO QHS [facility] Last Admin: 04/16/18 22:33 Dose: 80 mg Bisacodyl (Dulcolax) 10 mg RECTAL .PRN X 1 PRN PRN Reason: Constipation Calamine/Phenol (Calmoseptine Ointment) 1 applic TOPICAL BID [facility]; Protocol Last Admin: 04/17/18 08:58 Dose: 1 applicatio Clopidogrel Bisulfate (Plavix) 75 mg PO DAILY [facility] Last Admin: 04/17/18 08:13 Dose: 75 mg Cyclobenzaprine HCl (Flexeril) 10 mg PO TID [facility] Last Admin: 04/17/18 06:01 Dose: 10 mg Enoxaparin Sodium (Lovenox) 40 mg SC DAILY [facility] Last Admin: 04/17/18 08:13 Dose: 40 mg Escitalopram Oxalate (Lexapro) 10 mg PO DAILY [facility] Last Admin: 04/17/18 08:13 Dose: 10 mg Lisinopril (Zestril) 10 mg PO DAILY [facility] Last Admin: 04/17/18 08:21 Dose: Not Given Lisinopril (Zestril) 10 mg PO X1 ONE Stop: 04/17/18 10:01 Magnesium Hydroxide (Milk Of Magnesia) 30 ml PO .PRN X 1 PRN PRN Reason: Constipation Nystatin (Mycostatin Powder) 1 applic TOPICAL BID [facility]; Protocol Last Admin: 04/17/18 08:58 Dose: 1 applicatio Nystatin (Nystatin) 500,000 unit PO 4X/DAY [facility] Last Admin: 04/17/18 08:13 Dose: 500,000 unit Pramipexole Dihydrochloride (Mirapex) 0.125 mg PO QHS [facility] Last Admin: 04/16/18 22:33 Dose: 0.1248 mg Senna/Docusate Sodium (Senokot-S, Dee-Colace) 2 tablet PO BID [facility] Last Admin: 04/17/18 08:11 Dose: Not Given Medical Necessity - Tobacco Use Smoking Status: Never smoker Tobacco Use: Non-smoker Assessment/Plan 52 yo right handed white female with stroke risk factors including dm, htn, frank now with left bg infarct, not on asa at home, no history of tob. admitted to rehab with goal of restoring previous functional independence plan: PT for gait and balance OT for ADLs speech therapy for dysarthria stroke risk reduction: permissive high BP until Sunday04/17/18, then start on Lisinopril 10mg daily, bs control -> obtain A1c, continue asa 81mg, and statin 80mg, await hyper-coagulation eval, echo -> EJ 60%, stage I diastolic dysfunction, normal LV function Hx of RLS: on Mirapex PRN analgesics constipation: bowl protocol Shingles - start on Acyclovir 800mg 5xday repeat CPAP titration as out patient
[2018-04-17 11:14] VITALS: BP 161/106; PULSE 74
--- NOTE | 2018-04-17 11:15 | PN.NEURO_ITS ---
Addendum entered and electronically signed by VENKAT Sheffeild 04/17/18 16:59: Original Note: Subjective: Patient seen, sitting quietly in bedside recliner, No new complaints, tolerating therapy. Started on Acyclovir for shingles, tolerating medication. No issues with GI/. She walked today using the handrail in the hallway with assist of two and wheelchair follow. - Physical Exam General: Alert, Oriented x3, Cooperative HEENT: Atraumatic, PERRLA, EOMI, Normocephalic Neck: Supple, No JVD, Negative Carotid Bruits Lungs: Clear to auscultation, Normal air movement Cardiovascular: Regular rate, No murmurs Abdomen: Bowel Sounds Present, Soft, Non Tender Extremities: No edema, Capillary Refill Less than 3 Seconds Skin: No rashes, No breakdown Musculoskeletal: No Tenderness to Palpation of Joints or Extremities Neurological: Cranial nerves II-XII grossly intact Psych/Mental Status: Normal Affect, Appropriate, Alert and oriented to time, place, person, mood and affect Vital Signs Temp Pulse Resp BP Pulse Ox 98.1 F 78 20 H 162/112 H 95 04/17/18 07:00 04/17/18 07:00 04/17/18 07:00 04/17/18 07:00 04/17/18 10:39 Oxygen Delivery Method Room Air Weight: 140.6 kg Body Mass Index (BMI) 48.5 Finger Stick Blood Glucose 110 Intake and Output for Last 24 Hours 04/15/18 04/16/18 04/17/18 23:59 23:59 23:59 Intake Total 120 / 120 940 / 940 240 / 240 Output Total 1050 / 1050 Balance 120 / 120 -110 / -110 240 / 240 POC Glucose 04/17/18 06:57 POC Glucose 106 Active Medications Acyclovir (Zovirax) 800 mg PO 5X/DAY [facility] Stop: 04/23/18 10:19 Last Admin: 04/17/18 09:52 Dose: 800 mg Aspirin (Aspirin, Baby) 81 mg PO DAILY@0800 [facility] Last Admin: 04/17/18 08:13 Dose: 81 mg Atorvastatin Calcium (Lipitor) 80 mg PO QHS [facility] Last Admin: 04/16/18 22:33 Dose: 80 mg Bisacodyl (Dulcolax) 10 mg RECTAL .PRN X 1 PRN PRN Reason: Constipation Calamine/Phenol (Calmoseptine Ointment) 1 applic TOPICAL BID [facility]; Protocol Last Admin: 04/17/18 08:58 Dose: 1 applicatio Clopidogrel Bisulfate (Plavix) 75 mg PO DAILY [facility] Last Admin: 04/17/18 08:13 Dose: 75 mg Cyclobenzaprine HCl (Flexeril) 10 mg PO TID [facility] Last Admin: 04/17/18 06:01 Dose: 10 mg Enoxaparin Sodium (Lovenox) 40 mg SC DAILY [facility] Last Admin: 04/17/18 08:13 Dose: 40 mg Escitalopram Oxalate (Lexapro) 10 mg PO DAILY [facility] Last Admin: 04/17/18 08:13 Dose: 10 mg Lisinopril (Zestril) 10 mg PO DAILY [facility] Last Admin: 04/17/18 08:21 Dose: Not Given Lisinopril (Zestril) 10 mg PO X1 ONE Stop: 04/17/18 10:01 Magnesium Hydroxide (Milk Of Magnesia) 30 ml PO .PRN X 1 PRN PRN Reason: Constipation Nystatin (Mycostatin Powder) 1 applic TOPICAL BID [facility]; Protocol Last Admin: 04/17/18 08:58 Dose: 1 applicatio Nystatin (Nystatin) 500,000 unit PO 4X/DAY [facility] Last Admin: 04/17/18 08:13 Dose: 500,000 unit Pramipexole Dihydrochloride (Mirapex) 0.125 mg PO QHS [facility] Last Admin: 04/16/18 22:33 Dose: 0.1248 mg Senna/Docusate Sodium (Senokot-S, Dee-Colace) 2 tablet PO BID [facility] Last Admin: 04/17/18 08:11 Dose: Not Given Medical Necessity - Tobacco Use Smoking Status: Never smoker Tobacco Use: Non-smoker Assessment/Plan 52 yo right handed white female with stroke risk factors including dm, htn, frank now with left bg infarct, not on asa at home, no history of tob. admitted to rehab with goal of restoring previous functional independence plan: PT for gait and balance OT for ADLs speech therapy for dysarthria stroke risk reduction: permissive high BP until Sunday04/17/18, then start on Lisinopril 10mg daily, bs control -> obtain A1c, continue asa 81mg, and statin 80mg, await hyper-coagulation eval, echo -> EJ 60%, stage I diastolic dysfunction, normal LV function Hx of RLS: on Mirapex PRN analgesics constipation: bowl protocol Shingles - start on Acyclovir 800mg 5xday repeat CPAP titration as out patient
[2018-04-17] MEDS: Lisinopril 10 MG Tablet PO (12:08)
--- NOTE | 2018-04-17 12:30 | NURSING ---
discussed with team and pa removed. pt voiced understanding to use call light for needs.
[2018-04-17 15:01] VITALS: BMI 48.5
--- NOTE | 2018-04-17 15:50 | CASEMGMT ---
Social Work Met with patient and patient son, Jeremi. Jeremi reporting that patient is currently not active with Medicaid per Rita at [facility]. This social insurance specialist providing Medicaid application, Jeremi completing the application and then this social insurance specialist faxed application to [facility] along with a request for the [place] [facility] Waiver program per patient and Jeremi request. Jeremi brought in the Durable power of admitted attorneys for Health Care paperwork and this social insurance specialist placed records on chart. Current plan is for patient to continue with further care and treatment on the Inpatient Rehab Unit. Jeremi reporting that first choice for a facility, if this is needed after the time on Inpatient Rehab would be [facility]. Patient is agreeable to plan and Jeremi is the Health Care Power of admitted attorneys as well. Support given. Will continue to follow as needed. Frank Saenz, SIMULATION ANALYST, GRID MOLDER
[2018-04-17 19:37] VITALS: BP 145/79; PULSE 89; RESP 18; TEMP 36.8; O2SAT 95
[2018-04-17] MEDS: Pramipexole Di-HCl 0.125 MG Tablet PO (21:01)
[2018-04-17] MEDS: Atorvastatin Calcium 80 MG Tablet PO (21:01)
[2018-04-17 21:20] VITALS: BMI 48.5
--- NOTE | 2018-04-17 23:12 | NURSING ---
Respriatory therapy visited pt to see and adjusted face mask to enable pt to use CPAP. RT applied mask and CPAP is running at this time.
[2018-04-18] MEDS: Acyclovir 800 MG Tablet PO ×5 (06:13→21:58)
[2018-04-18] MEDS: Enoxaparin 40 MG/0.4 ML Syringe SC (06:13)
[2018-04-18 06:32] VITALS: O2SAT 97
[2018-04-18 07:51] VITALS: BP 138/74; PULSE 74; RESP 16; TEMP 36.6; O2SAT 96
[2018-04-18] MEDS: Aspirin 81 MG TAB.CHEW PO (09:15)
[2018-04-18] MEDS: Clopidogrel Bisulfate 75 MG Tablet PO (09:15)
[2018-04-18] MEDS: Escitalopram Oxalate 10 MG Tablet PO (09:15)
[2018-04-18] MEDS: NYSTATIN 500,000 UNIT/5 ML UDC 500000 UNIT PO ×4 (09:15→21:58)
[2018-04-18] MEDS: Nystatin Powder 15gm Bottle 1 APPLIC TOPICAL ×2 (09:17→21:57)
[2018-04-18] MEDS: Menthol/Lanolin/Calamine/Znox 113 GM Tube 1 APPLIC TOPICAL ×2 (09:17→21:56)
--- NOTE | 2018-04-18 13:06 | PCM.PN.NEU ---
Subjective: Patient seen and examined. No new complaints, tolerating therapy. Denies any SOB, Dizziness, blurry vision, or double vision. Remains weak on the right side. Tolerating nectar thicken liquids and soft/chopped diet. No issues with GI/. - Physical Exam General: Alert, Oriented x3, Cooperative HEENT: Atraumatic, PERRLA, EOMI, Normocephalic Neck: Supple, No JVD, Negative Carotid Bruits Lungs: Clear to auscultation, Normal air movement Cardiovascular: Regular rate, No murmurs Abdomen: Bowel Sounds Present, Soft, Non Tender Extremities: No edema, Capillary Refill Less than 3 Seconds Skin: No rashes, No breakdown Musculoskeletal: No Tenderness to Palpation of Joints or Extremities Neurological: Cranial nerves II-XII grossly intact Psych/Mental Status: Normal Affect, Appropriate, Alert and oriented to time, place, person, mood and affect Vital Signs Temp Pulse Resp BP Pulse Ox 97.9 F 74 16 138/74 H 96 04/18/18 07:51 04/18/18 07:51 04/18/18 07:51 04/18/18 07:51 04/18/18 07:51 Oxygen Delivery Method Room Air Weight: 140.6 kg Body Mass Index (BMI) 48.5 Finger Stick Blood Glucose 110 Intake and Output for Last 24 Hours 04/16/18 04/17/18 04/18/18 23:59 23:59 23:59 Intake Total 940 / 940 720 / 720 120 / 120 Output Total 1050 / 1050 400 / 400 300 / 300 Balance -110 / -110 320 / 320 -180 / -180 Laboratory Tests Past 24 Hrs 04/18/18 05:25 Hemoglobin A1c 6.0 Active Medications Acyclovir (Zovirax) 800 mg PO 5X/DAY [facility] Stop: 04/23/18 10:19 Last Admin: 04/18/18 09:16 Dose: 800 mg Aspirin (Aspirin, Baby) 81 mg PO DAILY@0800 [facility] Last Admin: 04/18/18 09:15 Dose: 81 mg Atorvastatin Calcium (Lipitor) 80 mg PO QHS [facility] Last Admin: 04/17/18 21:01 Dose: 80 mg Bisacodyl (Dulcolax) 10 mg RECTAL .PRN X 1 PRN PRN Reason: Constipation Calamine/Phenol (Calmoseptine Ointment) 1 applic TOPICAL BID [facility]; Protocol Last Admin: 04/18/18 09:17 Dose: 1 applicatio Clopidogrel Bisulfate (Plavix) 75 mg PO DAILY [facility] Last Admin: 04/18/18 09:15 Dose: 75 mg Cyclobenzaprine HCl (Flexeril) 10 mg PO TID [facility] Last Admin: 04/18/18 06:13 Dose: 10 mg Enoxaparin Sodium (Lovenox) 40 mg SC DAILY@0600 [facility] Last Admin: 04/18/18 06:13 Dose: 40 mg Escitalopram Oxalate (Lexapro) 10 mg PO DAILY [facility] Last Admin: 04/18/18 09:15 Dose: 10 mg Lisinopril (Zestril) 10 mg PO DAILY [facility] Magnesium Hydroxide (Milk Of Magnesia) 30 ml PO .PRN X 1 PRN PRN Reason: Constipation Nystatin (Mycostatin Powder) 1 applic TOPICAL BID [facility]; Protocol Last Admin: 04/18/18 09:17 Dose: 1 applicatio Nystatin (Nystatin) 500,000 unit PO 4X/DAY [facility] Last Admin: 04/18/18 09:15 Dose: 500,000 unit Pramipexole Dihydrochloride (Mirapex) 0.125 mg PO QHS [facility] Last Admin: 04/17/18 21:01 Dose: 0.125 mg Senna/Docusate Sodium (Senokot-S, Dee-Colace) 2 tablet PO BID [facility] Last Admin: 04/18/18 09:17 Dose: Not Given Medical Necessity - Tobacco Use Smoking Status: Never smoker Tobacco Use: Non-smoker Assessment/Plan 52 yo right handed white female with stroke risk factors including dm, htn, frank now with left bg infarct, not on asa at home, no history of tob. admitted to rehab with goal of restoring previous functional independence plan: PT for gait and balance OT for ADLs speech therapy for dysarthria stroke risk reduction: permissive high BP until Sunday04/17/18, then start on Lisinopril 10mg daily, bs control -> obtain A1c, continue asa 81mg, and statin 80mg, await hyper-coagulation eval, echo -> EJ 60%, stage I diastolic dysfunction, normal LV function Hx of RLS: on Mirapex PRN analgesics constipation: bowl protocol Shingles - start on Acyclovir 800mg 5xday repeat CPAP titration as out patient
--- NOTE | 2018-04-18 13:09 | PN.NEURO_ITS ---
Subjective: Patient seen and examined. No new complaints, tolerating therapy. Denies any SOB, Dizziness, blurry vision, or double vision. Remains weak on the right side. Tolerating nectar thicken liquids and soft/chopped diet. No issues with GI/. - Physical Exam General: Alert, Oriented x3, Cooperative HEENT: Atraumatic, PERRLA, EOMI, Normocephalic Neck: Supple, No JVD, Negative Carotid Bruits Lungs: Clear to auscultation, Normal air movement Cardiovascular: Regular rate, No murmurs Abdomen: Bowel Sounds Present, Soft, Non Tender Extremities: No edema, Capillary Refill Less than 3 Seconds Skin: No rashes, No breakdown Musculoskeletal: No Tenderness to Palpation of Joints or Extremities Neurological: Cranial nerves II-XII grossly intact Psych/Mental Status: Normal Affect, Appropriate, Alert and oriented to time, place, person, mood and affect Vital Signs Temp Pulse Resp BP Pulse Ox 97.9 F 74 16 138/74 H 96 04/18/18 07:51 04/18/18 07:51 04/18/18 07:51 04/18/18 07:51 04/18/18 07:51 Oxygen Delivery Method Room Air Weight: 140.6 kg Body Mass Index (BMI) 48.5 Finger Stick Blood Glucose 110 Intake and Output for Last 24 Hours 04/16/18 04/17/18 04/18/18 23:59 23:59 23:59 Intake Total 940 / 940 720 / 720 120 / 120 Output Total 1050 / 1050 400 / 400 300 / 300 Balance -110 / -110 320 / 320 -180 / -180 Laboratory Tests Past 24 Hrs 04/18/18 05:25 Hemoglobin A1c 6.0 Active Medications Acyclovir (Zovirax) 800 mg PO 5X/DAY [facility] Stop: 04/23/18 10:19 Last Admin: 04/18/18 09:16 Dose: 800 mg Aspirin (Aspirin, Baby) 81 mg PO DAILY@0800 [facility] Last Admin: 04/18/18 09:15 Dose: 81 mg Atorvastatin Calcium (Lipitor) 80 mg PO QHS [facility] Last Admin: 04/17/18 21:01 Dose: 80 mg Bisacodyl (Dulcolax) 10 mg RECTAL .PRN X 1 PRN PRN Reason: Constipation Calamine/Phenol (Calmoseptine Ointment) 1 applic TOPICAL BID [facility]; Protocol Last Admin: 04/18/18 09:17 Dose: 1 applicatio Clopidogrel Bisulfate (Plavix) 75 mg PO DAILY [facility] Last Admin: 04/18/18 09:15 Dose: 75 mg Cyclobenzaprine HCl (Flexeril) 10 mg PO TID [facility] Last Admin: 04/18/18 06:13 Dose: 10 mg Enoxaparin Sodium (Lovenox) 40 mg SC DAILY@0600 [facility] Last Admin: 04/18/18 06:13 Dose: 40 mg Escitalopram Oxalate (Lexapro) 10 mg PO DAILY [facility] Last Admin: 04/18/18 09:15 Dose: 10 mg Lisinopril (Zestril) 10 mg PO DAILY [facility] Magnesium Hydroxide (Milk Of Magnesia) 30 ml PO .PRN X 1 PRN PRN Reason: Constipation Nystatin (Mycostatin Powder) 1 applic TOPICAL BID [facility]; Protocol Last Admin: 04/18/18 09:17 Dose: 1 applicatio Nystatin (Nystatin) 500,000 unit PO 4X/DAY [facility] Last Admin: 04/18/18 09:15 Dose: 500,000 unit Pramipexole Dihydrochloride (Mirapex) 0.125 mg PO QHS [facility] Last Admin: 04/17/18 21:01 Dose: 0.125 mg Senna/Docusate Sodium (Senokot-S, Dee-Colace) 2 tablet PO BID [facility] Last Admin: 04/18/18 09:17 Dose: Not Given Medical Necessity - Tobacco Use Smoking Status: Never smoker Tobacco Use: Non-smoker Assessment/Plan 52 yo right handed white female with stroke risk factors including dm, htn, frank now with left bg infarct, not on asa at home, no history of tob. admitted to rehab with goal of restoring previous functional independence plan: PT for gait and balance OT for ADLs speech therapy for dysarthria stroke risk reduction: permissive high BP until Sunday04/17/18, then start on Lisinopril 10mg daily, bs control -> obtain A1c, continue asa 81mg, and statin 80mg, await hyper-coagulation eval, echo -> EJ 60%, stage I diastolic dysfunction, normal LV function Hx of RLS: on Mirapex PRN analgesics constipation: bowl protocol Shingles - start on Acyclovir 800mg 5xday repeat CPAP titration as out patient
[2018-04-18] MEDS: Lisinopril 10 MG Tablet PO (13:22)
[2018-04-18 15:12] VITALS: BMI 48.5
--- NOTE | 2018-04-18 16:28 | CHAPLAIN ---
Type of Pastoral Visit _x__ Initial Visit ___ Follow-up Visit ___ On-call Visit ___ General Patient Visit ___ Spiritual Assessment ___ Family Conference ___ Bereavement ___ Rapid Response ___ Code Blue ___ Other (describe below) Pastoral Care Referral From _x__ Patient ___ Family ___ Nurse ___ Physician ___ Mud Worker ___ Pen Maker ___ Other (describe below) Sacrament/Intervention _x__ Active listening ___ Anointing ___ Yarsani ___ Bereavement ___ Communion ___ [place] exploration ___ ___ Life review ___ Prayer ___ Reconciliation ___ Sacrament of Sick ___ Supportive presence ___ Wedding ___ Other (describe below) Pastoral Comments visit was short as ST came into room for evaluation
[2018-04-18] MEDS: Atorvastatin Calcium 80 MG Tablet PO (21:56)
[2018-04-18] MEDS: Pramipexole Di-HCl 0.125 MG Tablet PO (21:57)
[2018-04-18 22:00] VITALS: BP 142/74; PULSE 72; RESP 18; TEMP 36.7; O2SAT 95
[2018-04-19 02:12] VITALS: BMI 48.5
--- NOTE | 2018-04-19 05:40 | NURSING ---
REVIEWED AND AGREE WITH GUEST REQUEST RUNNER'S FIM AND HANDOFF CHARTING,
[2018-04-19] MEDS: Acyclovir 800 MG Tablet PO ×5 (05:41→20:44)
[2018-04-19] MEDS: Enoxaparin 40 MG/0.4 ML Syringe SC (05:41)
[2018-04-19] MEDS: Aspirin 81 MG TAB.CHEW PO (08:24)
[2018-04-19] MEDS: Escitalopram Oxalate 10 MG Tablet PO (08:24)
[2018-04-19] MEDS: NYSTATIN 500,000 UNIT/5 ML UDC 500000 UNIT PO (08:25)
[2018-04-19] MEDS: Clopidogrel Bisulfate 75 MG Tablet PO (08:25)
[2018-04-19 09:15] VITALS: BP 133/78; PULSE 68; RESP 20; TEMP 36.5; O2SAT 97
[2018-04-19] MEDS: Nystatin Powder 15gm Bottle 1 APPLIC TOPICAL ×2 (09:36→20:44)
[2018-04-19] MEDS: Menthol/Lanolin/Calamine/Znox 113 GM Tube 1 APPLIC TOPICAL ×2 (09:37→20:43)
[2018-04-19] MEDS: Lisinopril 10 MG Tablet PO (09:45)
[2018-04-19 14:11] VITALS: BMI 48.5
[2018-04-19] MEDS: Pramipexole Di-HCl 0.125 MG Tablet PO (20:43)
[2018-04-19] MEDS: Atorvastatin Calcium 80 MG Tablet PO (20:44)
[2018-04-19 21:30] VITALS: BP 153/81; PULSE 86; RESP 18; TEMP 37.1; O2SAT 91
[2018-04-20 01:08] VITALS: BMI 48.5
--- NOTE | 2018-04-20 02:07 | NURSING ---
Reviewed and agree with LPNs fims and handoff
[2018-04-20] MEDS: Enoxaparin 40 MG/0.4 ML Syringe SC (06:57)
[2018-04-20] MEDS: Acyclovir 800 MG Tablet PO ×5 (06:57→20:18)
[2018-04-20 07:00] VITALS: BP 122/71; PULSE 69; RESP 18; TEMP 36.8; O2SAT 98
[2018-04-20] MEDS: Clopidogrel Bisulfate 75 MG Tablet PO (07:49)
[2018-04-20] MEDS: Aspirin 81 MG TAB.CHEW PO (07:49)
[2018-04-20] MEDS: Lisinopril 10 MG Tablet PO (07:49)
[2018-04-20] MEDS: Escitalopram Oxalate 10 MG Tablet PO (07:49)
[2018-04-20] MEDS: Menthol/Lanolin/Calamine/Znox 113 GM Tube 1 APPLIC TOPICAL ×2 (09:32→20:19)
[2018-04-20] MEDS: Nystatin Powder 15gm Bottle 1 APPLIC TOPICAL ×2 (09:32→20:18)
[2018-04-20 12:51] VITALS: BMI 48.5
[2018-04-20] MEDS: Atorvastatin Calcium 80 MG Tablet PO (20:18)
[2018-04-20] MEDS: Pramipexole Di-HCl 0.125 MG Tablet PO (20:18)
[2018-04-20 21:39] VITALS: BP 130/74; PULSE 72; RESP 18; TEMP 36.7; O2SAT 96
[2018-04-21 00:04] VITALS: BMI 48.5
--- NOTE | 2018-04-21 00:43 | NURSING ---
Reviewed and agree with LPNs fims and handoff
[2018-04-21] MEDS: Enoxaparin 40 MG/0.4 ML Syringe SC (07:00)
[2018-04-21] MEDS: Acyclovir 800 MG Tablet PO ×5 (07:00→21:45)
[2018-04-21] MEDS: Nystatin Powder 15gm Bottle 1 APPLIC TOPICAL ×2 (08:10→21:46)
[2018-04-21] MEDS: Menthol/Lanolin/Calamine/Znox 113 GM Tube 1 APPLIC TOPICAL ×2 (08:10→21:46)
[2018-04-21] MEDS: Escitalopram Oxalate 10 MG Tablet PO (08:11)
[2018-04-21] MEDS: Clopidogrel Bisulfate 75 MG Tablet PO (08:11)
[2018-04-21] MEDS: Aspirin 81 MG TAB.CHEW PO (08:11)
[2018-04-21] MEDS: Lisinopril 10 MG Tablet PO (08:11)
[2018-04-21 08:38] VITALS: BP 122/79; PULSE 83; RESP 18; TEMP 36.7; O2SAT 95
--- NOTE | 2018-04-21 13:22 | PCM.PROGNOTE ---
Subjective: Chief complaint: Follow-up after consultation following admission to inpatient rehab unit after patient suffered acute ischemic infarct of the left basal ganglia with resultant right-sided hemiplegia and right facial droop. Patient seen and examined. No acute events overnight. Nursing staff reported that she has been able to ambulate with maximum assistance. Weakness of the right upper extremity almost the same, flaccid paralysis. Denied any other complaints. Her vital signs are stable. - Physical Exam General: Alert, Oriented x3, Cooperative, No apparent distress HEENT: Atraumatic, PERRLA, EOMI, Normocephalic Oral: Moist Mucosa, No Gingival or Mucosal Lesions/ Ulcerations Neck: Supple, No JVD, Negative Carotid Bruits, Trachea Midline, Thyroid Normal Size and Texture Lungs: Clear to auscultation, Normal air movement, No rhonchi, No wheeze, No rales Cardiovascular: Regular rate, Regular Rhythm, Normal S1, Normal S2, No murmurs Abdomen: Bowel Sounds Present, Soft, Non Tender, Non-Distended, No Hepato-splenomegaly Extremities: No clubbing, No cyanosis, No edema Skin: No rashes, No breakdown Lymphatic: No Cervical, Supraclavicular, or Inguinal Adenopathy Neurological: - - Minimal right facial droop. Right upper extremity flaccid hemiplegia, right lower extremity hemiparesis. Psych/Mental Status: Normal Affect, Appropriate, Alert and oriented to time, place, person, mood and affect Vital Signs Temp Pulse Resp BP Pulse Ox 98.0 F 83 18 122/79 H 95 04/21/18 08:38 04/21/18 08:38 04/21/18 08:38 04/21/18 08:38 04/21/18 08:38 Oxygen Delivery Method Room Air Weight: 308 lb 0.478 oz Body Mass Index (BMI) 48.5 Finger Stick Blood Glucose 110 Intake and Output for Last 24 Hours 04/19/18 04/20/18 04/21/18 23:59 23:59 23:59 Intake Total 600 / 600 600 / 600 480 / 480 Output Total 200 / 200 Balance 600 / 600 400 / 400 480 / 480 Medical Necessity - Tobacco Use Smoking Status: Never smoker Tobacco Use: Non-smoker Assessment/Plan This is a 52 years old female patient admitted to inpatient rehab unit after she suffered acute ischemic infarct of the left basal ganglia with resultant right-sided hemiplegia and right facial droop and I am seeing this patient for follow-up after consultation for medical management. #1 status post acute ischemic infarct of the left basal ganglia: With resultant right upper extremity flaccid hemiplegia and right lower extremity hemiparesis and right facial droop. Patient is on aspirin, Plavix and statins. Her blood pressure is under control, at goal. Her routine blood work today was unremarkable. Patient started to walk on her feet with maximum assistance, weakness of the right leg is improving but not the weakness of the right upper arm. Plan to continue same treatment. #2 stable zoster: In her back, small area of blistering. She is on Zovirax. #3 dysphagia: Secondary to acute stroke. She is on a regular diet. She has been seen by speech therapy. #4 hypertension: Blood pressure stable, continue lisinopril. #5 hyperlipidemia: Continue statins. #6 restless leg syndrome: Continue Mirapex. #7 depression: Stable, continue Lexapro. #8 DVT prophylaxis: Subcu Lovenox. This note was generated with [employer] dictation software. It may contain incorrect words, spelling, and punctuation that were not noted in checking the note before signing. Code Visit Inpatient E&M: 05258 Subs Hosp L2
--- NOTE | 2018-04-21 13:26 | PN_ITS ---
Subjective: Chief complaint: Follow-up after consultation following admission to inpatient rehab unit after patient suffered acute ischemic infarct of the left basal ganglia with resultant right-sided hemiplegia and right facial droop. Patient seen and examined. No acute events overnight. Nursing staff reported that she has been able to ambulate with maximum assistance. Weakness of the right upper extremity almost the same, flaccid paralysis. Denied any other complaints. Her vital signs are stable. - Physical Exam General: Alert, Oriented x3, Cooperative, No apparent distress HEENT: Atraumatic, PERRLA, EOMI, Normocephalic Oral: Moist Mucosa, No Gingival or Mucosal Lesions/ Ulcerations Neck: Supple, No JVD, Negative Carotid Bruits, Trachea Midline, Thyroid Normal Size and Texture Lungs: Clear to auscultation, Normal air movement, No rhonchi, No wheeze, No rales Cardiovascular: Regular rate, Regular Rhythm, Normal S1, Normal S2, No murmurs Abdomen: Bowel Sounds Present, Soft, Non Tender, Non-Distended, No Hepato- splenomegaly Extremities: No clubbing, No cyanosis, No edema Skin: No rashes, No breakdown Lymphatic: No Cervical, Supraclavicular, or Inguinal Adenopathy Neurological: - - Minimal right facial droop. Right upper extremity flaccid hemiplegia, right lower extremity hemiparesis. Psych/Mental Status: Normal Affect, Appropriate, Alert and oriented to time, place, person, mood and affect Vital Signs Temp Pulse Resp BP Pulse Ox 98.0 F 83 18 122/79 H 95 04/21/18 08:38 04/21/18 08:38 04/21/18 08:38 04/21/18 08:38 04/21/18 08:38 Oxygen Delivery Method Room Air Weight: 308 lb 0.478 oz Body Mass Index (BMI) 48.5 Finger Stick Blood Glucose 110 Intake and Output for Last 24 Hours 04/19/18 04/20/18 04/21/18 23:59 23:59 23:59 Intake Total 600 / 600 600 / 600 480 / 480 Output Total 200 / 200 Balance 600 / 600 400 / 400 480 / 480 Medical Necessity - Tobacco Use Smoking Status: Never smoker Tobacco Use: Non-smoker Assessment/Plan This is a 52 years old female patient admitted to inpatient rehab unit after she suffered acute ischemic infarct of the left basal ganglia with resultant right- sided hemiplegia and right facial droop and I am seeing this patient for follow- up after consultation for medical management. #1 status post acute ischemic infarct of the left basal ganglia: With resultant right upper extremity flaccid hemiplegia and right lower extremity hemiparesis and right facial droop. Patient is on aspirin, Plavix and statins. Her blood pressure is under control, at goal. Her routine blood work today was unremarkable. Patient started to walk on her feet with maximum assistance, weakness of the right leg is improving but not the weakness of the right upper arm. Plan to continue same treatment. #2 stable zoster: In her back, small area of blistering. She is on Zovirax. #3 dysphagia: Secondary to acute stroke. She is on a regular diet. She has been seen by speech therapy. #4 hypertension: Blood pressure stable, continue lisinopril. #5 hyperlipidemia: Continue statins. #6 restless leg syndrome: Continue Mirapex. #7 depression: Stable, continue Lexapro. #8 DVT prophylaxis: Subcu Lovenox. This note was generated with [employer] dictation software. It may contain incorrect words, spelling, and punctuation that were not noted in checking the note before signing. Code Visit Inpatient E&M: 08209 Subs Hosp L2
[2018-04-21 14:10] VITALS: BMI 48.5
[2018-04-21 21:30] VITALS: BP 123/81; PULSE 78; RESP 16; TEMP 36.8; O2SAT 78; O2SAT 94; BMI 48.5
[2018-04-21] MEDS: Atorvastatin Calcium 80 MG Tablet PO (21:45)
[2018-04-21] MEDS: Pramipexole Di-HCl 0.125 MG Tablet PO (21:45)
--- NOTE | 2018-04-22 04:48 | NURSING ---
Reviewed and agree with LPNs fims and handoff
[2018-04-22] MEDS: Acyclovir 800 MG Tablet PO ×5 (06:56→21:01)
[2018-04-22] MEDS: Enoxaparin 40 MG/0.4 ML Syringe SC (06:56)
[2018-04-22 07:31] LABS: Bedside Glucose 99 mg/dL (70-110)
[2018-04-22] MEDS: Clopidogrel Bisulfate 75 MG Tablet PO (08:45)
[2018-04-22] MEDS: Aspirin 81 MG TAB.CHEW PO (08:45)
[2018-04-22] MEDS: Escitalopram Oxalate 10 MG Tablet PO (08:45)
[2018-04-22] MEDS: Lisinopril 10 MG Tablet PO (08:46)
[2018-04-22 09:01] VITALS: BP 136/84; PULSE 77; RESP 16; TEMP 37; O2SAT 95
--- NOTE | 2018-04-22 12:51 | PCM.PN.NEU ---
Subjective: Staffed in team meeting. Family was not at bedside, the feed elevator worker will contact the family concerning team meeting, questions where addressed and answered. With Physical therapy, she has walked 15 feet using miceky walker and wall rail at max assist. With transfers she is moderate assist of one to go from a sitting to a standing position. With Occupational therapy, she is able to do grooming at moderate assist. She is moderate assist to get in and out of the shower, She is max assist for bathing. She is total assist for toileting needs, hygiene and dressing. With Speech therapy, working on compensatory techniques for eating and drinking she is on nectar thicken liquids. Did a swallow evaluation and she would intermittently protect her her airway. She continues to have right visual field deficits, will continue to work on this. With Nursing her vital signs are stable, pain is well controlled. Her shingles have improved with treatment. Will re-team her again next Sunday04/29/18. - Physical Exam General: Alert, Oriented x3, Cooperative HEENT: Atraumatic, PERRLA, EOMI, Normocephalic Neck: Supple, No JVD, Negative Carotid Bruits Lungs: Clear to auscultation, Normal air movement Cardiovascular: Regular rate, No murmurs Abdomen: Bowel Sounds Present, Soft, Non Tender Extremities: No edema, Capillary Refill Less than 3 Seconds Skin: No rashes, No breakdown Musculoskeletal: No Tenderness to Palpation of Joints or Extremities Neurological: Cranial nerves II-XII grossly intact Psych/Mental Status: Normal Affect, Appropriate, Alert and oriented to time, place, person, mood and affect Vital Signs Temp Pulse Resp BP Pulse Ox 98.6 F 77 16 136/84 H 95 04/22/18 09:01 04/22/18 09:01 04/22/18 09:01 04/22/18 09:01 04/22/18 09:01 Oxygen Delivery Method Room Air Weight: 139.72 kg Body Mass Index (BMI) 48.5 Finger Stick Blood Glucose 110 Intake and Output for Last 24 Hours 04/20/18 04/21/18 04/22/18 23:59 23:59 23:59 Intake Total 600 / 600 480 / 480 180 / 180 Output Total 200 / 200 Balance 400 / 400 480 / 480 180 / 180 POC Glucose 04/22/18 07:02 POC Glucose 99 Active Medications Acyclovir (Zovirax) 800 mg PO 5X/DAY [facility] Stop: 04/23/18 10:19 Last Admin: 04/22/18 08:46 Dose: 800 mg Aspirin (Aspirin, Baby) 81 mg PO DAILY@0800 [facility] Last Admin: 04/22/18 08:45 Dose: 81 mg Atorvastatin Calcium (Lipitor) 80 mg PO QHS [facility] Last Admin: 04/21/18 21:45 Dose: 80 mg Bisacodyl (Dulcolax) 10 mg RECTAL .PRN X 1 PRN PRN Reason: Constipation Calamine/Phenol (Calmoseptine Ointment) 1 applic TOPICAL BID [facility]; Protocol Last Admin: 04/21/18 21:46 Dose: 1 applicatio Clopidogrel Bisulfate (Plavix) 75 mg PO DAILY [facility] Last Admin: 04/22/18 08:45 Dose: 75 mg Cyclobenzaprine HCl (Flexeril) 10 mg PO TID [facility] Last Admin: 04/22/18 06:56 Dose: 10 mg Enoxaparin Sodium (Lovenox) 40 mg SC DAILY@0600 [facility] Last Admin: 04/22/18 06:56 Dose: 40 mg Escitalopram Oxalate (Lexapro) 10 mg PO DAILY [facility] Last Admin: 04/22/18 08:45 Dose: 10 mg Lisinopril (Zestril) 10 mg PO DAILY [facility] Last Admin: 04/22/18 08:46 Dose: 10 mg Magnesium Hydroxide (Milk Of Magnesia) 30 ml PO .PRN X 1 PRN PRN Reason: Constipation Nystatin (Mycostatin Powder) 1 applic TOPICAL BID [facility]; Protocol Last Admin: 04/21/18 21:46 Dose: 1 applicatio Pramipexole Dihydrochloride (Mirapex) 0.125 mg PO QHS [facility] Last Admin: 04/21/18 21:45 Dose: 0.125 mg Senna/Docusate Sodium (Senokot-S, Dee-Colace) 2 tablet PO BID [facility] Last Admin: 04/22/18 08:49 Dose: Not Given Medical Necessity - Tobacco Use Smoking Status: Never smoker Tobacco Use: Non-smoker Assessment/Plan 52 yo right handed white female with stroke risk factors including dm, htn, frank now with left bg infarct, not on asa at home, no history of tob. admitted to rehab with goal of restoring previous functional independence plan: PT for gait and balance OT for ADLs speech therapy for dysarthria stroke risk reduction: permissive high BP until Sunday04/17/18, then start on Lisinopril 10mg daily, bs control -> obtain A1c, continue asa 81mg, and statin 80mg, await hyper-coagulation eval, echo -> EJ 60%, stage I diastolic dysfunction, normal LV function Hx of RLS: on Mirapex PRN analgesics constipation: bowl protocol Shingles - start on Acyclovir 800mg 5xday repeat CPAP titration as out patient
--- NOTE | 2018-04-22 13:05 | PN.NEURO_ITS ---
Subjective: Staffed in team meeting. Family was not at bedside, the fruit farmworker will contact the family concerning team meeting, questions where addressed and answered. With Physical therapy, she has walked 15 feet using mickey walker and wall rail at max assist. With transfers she is moderate assist of one to go from a sitting to a standing position. With Occupational therapy, she is able to do grooming at moderate assist. She is moderate assist to get in and out of the shower, She is max assist for bathing. She is total assist for toileting needs, hygiene and dressing. With Speech therapy, working on compensatory techniques for eating and drinking she is on nectar thicken liquids. Did a swallow evaluation and she would intermittently protect her her airway. She continues to have right visual field deficits, will continue to work on this. With Nursing her vital signs are stable, pain is well controlled. Her shingles have improved with treatment. Will re-team her again next Sunday04/29/18. - Physical Exam General: Alert, Oriented x3, Cooperative HEENT: Atraumatic, PERRLA, EOMI, Normocephalic Neck: Supple, No JVD, Negative Carotid Bruits Lungs: Clear to auscultation, Normal air movement Cardiovascular: Regular rate, No murmurs Abdomen: Bowel Sounds Present, Soft, Non Tender Extremities: No edema, Capillary Refill Less than 3 Seconds Skin: No rashes, No breakdown Musculoskeletal: No Tenderness to Palpation of Joints or Extremities Neurological: Cranial nerves II-XII grossly intact Psych/Mental Status: Normal Affect, Appropriate, Alert and oriented to time, place, person, mood and affect Vital Signs Temp Pulse Resp BP Pulse Ox 98.6 F 77 16 136/84 H 95 04/22/18 09:01 04/22/18 09:01 04/22/18 09:01 04/22/18 09:01 04/22/18 09:01 Oxygen Delivery Method Room Air Weight: 139.72 kg Body Mass Index (BMI) 48.5 Finger Stick Blood Glucose 110 Intake and Output for Last 24 Hours 04/20/18 04/21/18 04/22/18 23:59 23:59 23:59 Intake Total 600 / 600 480 / 480 180 / 180 Output Total 200 / 200 Balance 400 / 400 480 / 480 180 / 180 POC Glucose 04/22/18 07:02 POC Glucose 99 Active Medications Acyclovir (Zovirax) 800 mg PO 5X/DAY [facility] Stop: 04/23/18 10:19 Last Admin: 04/22/18 08:46 Dose: 800 mg Aspirin (Aspirin, Baby) 81 mg PO DAILY@0800 [facility] Last Admin: 04/22/18 08:45 Dose: 81 mg Atorvastatin Calcium (Lipitor) 80 mg PO QHS [facility] Last Admin: 04/21/18 21:45 Dose: 80 mg Bisacodyl (Dulcolax) 10 mg RECTAL .PRN X 1 PRN PRN Reason: Constipation Calamine/Phenol (Calmoseptine Ointment) 1 applic TOPICAL BID [facility]; Protocol Last Admin: 04/21/18 21:46 Dose: 1 applicatio Clopidogrel Bisulfate (Plavix) 75 mg PO DAILY [facility] Last Admin: 04/22/18 08:45 Dose: 75 mg Cyclobenzaprine HCl (Flexeril) 10 mg PO TID [facility] Last Admin: 04/22/18 06:56 Dose: 10 mg Enoxaparin Sodium (Lovenox) 40 mg SC DAILY@0600 [facility] Last Admin: 04/22/18 06:56 Dose: 40 mg Escitalopram Oxalate (Lexapro) 10 mg PO DAILY [facility] Last Admin: 04/22/18 08:45 Dose: 10 mg Lisinopril (Zestril) 10 mg PO DAILY [facility] Last Admin: 04/22/18 08:46 Dose: 10 mg Magnesium Hydroxide (Milk Of Magnesia) 30 ml PO .PRN X 1 PRN PRN Reason: Constipation Nystatin (Mycostatin Powder) 1 applic TOPICAL BID [facility]; Protocol Last Admin: 04/21/18 21:46 Dose: 1 applicatio Pramipexole Dihydrochloride (Mirapex) 0.125 mg PO QHS [facility] Last Admin: 04/21/18 21:45 Dose: 0.125 mg Senna/Docusate Sodium (Senokot-S, Dee-Colace) 2 tablet PO BID [facility] Last Admin: 04/22/18 08:49 Dose: Not Given Medical Necessity - Tobacco Use Smoking Status: Never smoker Tobacco Use: Non-smoker Assessment/Plan 52 yo right handed white female with stroke risk factors including dm, htn, frank now with left bg infarct, not on asa at home, no history of tob. admitted to rehab with goal of restoring previous functional independence plan: PT for gait and balance OT for ADLs speech therapy for dysarthria stroke risk reduction: permissive high BP until Sunday04/17/18, then start on Lisinopril 10mg daily, bs control -> obtain A1c, continue asa 81mg, and statin 80mg, await hyper-coagulation eval, echo -> EJ 60%, stage I diastolic dysfunction, normal LV function Hx of RLS: on Mirapex PRN analgesics constipation: bowl protocol Shingles - start on Acyclovir 800mg 5xday repeat CPAP titration as out patient
[2018-04-22] MEDS: Nystatin Powder 15gm Bottle 1 APPLIC TOPICAL ×2 (13:15→21:02)
[2018-04-22] MEDS: Menthol/Lanolin/Calamine/Znox 113 GM Tube 1 APPLIC TOPICAL ×2 (13:16→21:02)
[2018-04-22 15:17] VITALS: BMI 48.5
--- NOTE | 2018-04-22 15:34 | CASEMGMT ---
Team meeting held. Patient present. No support person present as this time. Patient agreeable to this social worker clinical contacting patient son, Jeremi in regards to team meeting. Voicemail left with Jeremi on team meeting information. Patient approved 23 Days with Medicare with a discharge on or by 05/07/18. Patient plans to transition to the [facility] if patient still needs continued services after 05/07/18. Patient to continue with further care and treatment on the Inpatient Rehab Unit at this time. Support given. [email or web address] This social worker clinical making referral. Clinical information faxed. Will continue to follow. CAITY Ludwig, RETIREMENT PLAN COUNSELOR
[2018-04-22 18:05] VITALS: BP 123/84; PULSE 74; RESP 18; TEMP 36.4; O2SAT 97
[2018-04-22 20:50] VITALS: BP 123/84; PULSE 74; RESP 18; TEMP 36.4; O2SAT 97; BMI 48.5
[2018-04-22] MEDS: Pramipexole Di-HCl 0.125 MG Tablet PO (21:01)
[2018-04-22] MEDS: Atorvastatin Calcium 80 MG Tablet PO (21:01)
--- NOTE | 2018-04-23 03:45 | NURSING ---
Reviewed and agree with HANDMADE TILE ARTIST documentation and FIMs charting.
[2018-04-23] MEDS: Enoxaparin 40 MG/0.4 ML Syringe SC (05:38)
[2018-04-23] MEDS: Acyclovir 800 MG Tablet PO ×2 (05:39→09:32)
[2018-04-23 07:50] VITALS: BP 126/79; PULSE 73; RESP 18; TEMP 36.6; O2SAT 96
[2018-04-23] MEDS: Clopidogrel Bisulfate 75 MG Tablet PO (09:33)
[2018-04-23] MEDS: Escitalopram Oxalate 10 MG Tablet PO (09:33)
[2018-04-23] MEDS: Lisinopril 10 MG Tablet PO (09:33)
[2018-04-23] MEDS: Aspirin 81 MG TAB.CHEW PO (09:33)
[2018-04-23] MEDS: Menthol/Lanolin/Calamine/Znox 113 GM Tube 1 APPLIC TOPICAL ×2 (09:38→21:03)
[2018-04-23] MEDS: Nystatin Powder 15gm Bottle 1 APPLIC TOPICAL ×2 (09:39→21:04)
[2018-04-23 13:56] VITALS: BMI 48.5
--- NOTE | 2018-04-23 16:19 | CHAPLAIN ---
Type of Pastoral Visit ___ Initial Visit _x__ Follow-up Visit ___ On-call Visit ___ General Patient Visit ___ Spiritual Assessment ___ Family Conference ___ Bereavement ___ Rapid Response ___ Code Blue ___ Other (describe below) Pastoral Care Referral From _x__ Patient ___ Family ___ Nurse ___ Physician ___ Manager Of Sales ___ Wire Tester ___ Other (describe below) Sacrament/Intervention _x__ Active listening ___ Anointing ___ Zoroastrianism ___ Bereavement ___ Communion _x__ Yokasta exploration ___ ___ Life review _x__ Prayer ___ Reconciliation ___ Sacrament of Sick _x__ Supportive presence ___ Wedding ___ Other (describe below) Pastoral Comments
--- NOTE | 2018-04-23 16:37 | PCM.PN.HOSP ---
Subjective: Seen and examined. Patient has right-sided weakness with aphasia and right facial droop. Slurred speech. Patient had acute ischemic infarct of left basal ganglia. Vitals/I&O's: Vital Signs Temp Pulse Resp BP Pulse Ox 97.8 F 73 18 126/79 H 96 04/23/18 07:50 04/23/18 07:50 04/23/18 07:50 04/23/18 07:50 04/23/18 07:50 Oxygen Delivery Method Room Air Weight: 308 lb 0.478 oz Body Mass Index (BMI) 48.5 Finger Stick Blood Glucose 110 Intake and Output for Last 24 Hours 04/21/18 04/22/18 04/23/18 23:59 23:59 23:59 Intake Total 480 / 480 420 / 420 360 / 360 Balance 480 / 480 420 / 420 360 / 360 General: Alert, Oriented x3, Cooperative HEENT: Atraumatic, PERRLA, EOMI, Normocephalic, - Oral: Moist Mucosa Neck: Supple, No JVD, Negative Carotid Bruits Lungs: Clear to auscultation, Normal air movement Cardiovascular: Regular rate, No murmurs Abdomen: Bowel Sounds Present, Soft, Non Tender, Non-Distended Extremities: No edema, Capillary Refill Less than 3 Seconds Skin: No rashes, No breakdown Musculoskeletal: No Tenderness to Palpation of Joints or Extremities, Arthritic Changes Neurological: - - Right facial droop. Motor aphasia with language deficit. 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 Psych/Mental Status: Normal Affect, Appropriate Current Medications Aspirin (Aspirin, Baby) 81 mg PO DAILY@0800 [facility] Last Admin: 04/23/18 09:33 Dose: 81 mg Atorvastatin Calcium (Lipitor) 80 mg PO QHS [facility] Last Admin: 04/22/18 21:01 Dose: 80 mg Bisacodyl (Dulcolax) 10 mg RECTAL .PRN X 1 PRN PRN Reason: Constipation Calamine/Phenol (Calmoseptine Ointment) 1 applic TOPICAL BID [facility]; Protocol Last Admin: 04/23/18 09:38 Dose: 1 applicatio Clopidogrel Bisulfate (Plavix) 75 mg PO DAILY [facility] Last Admin: 04/23/18 09:33 Dose: 75 mg Cyclobenzaprine HCl (Flexeril) 10 mg PO TID [facility] Last Admin: 04/23/18 13:13 Dose: 10 mg Enoxaparin Sodium (Lovenox) 40 mg SC DAILY@0600 [facility] Last Admin: 04/23/18 05:38 Dose: 40 mg Escitalopram Oxalate (Lexapro) 10 mg PO DAILY [facility] Last Admin: 04/23/18 09:33 Dose: 10 mg Lactobacillus Acidophilus (Acidophilus) 1 tablet PO BID [facility] Last Admin: 04/23/18 09:33 Dose: 1 tablet Lisinopril (Zestril) 10 mg PO DAILY [facility] Last Admin: 04/23/18 09:33 Dose: 10 mg Magnesium Hydroxide (Milk Of Magnesia) 30 ml PO .PRN X 1 PRN PRN Reason: Constipation Nystatin (Mycostatin Powder) 1 applic TOPICAL BID [facility]; Protocol Last Admin: 04/23/18 09:39 Dose: 1 applicatio Pramipexole Dihydrochloride (Mirapex) 0.125 mg PO QHS [facility] Last Admin: 04/22/18 21:01 Dose: 0.125 mg Senna/Docusate Sodium (Senokot-S, Dee-Colace) 2 tablet PO BID [facility] Last Admin: 04/23/18 09:33 Dose: Not Given Medical Necessity - Tobacco Use Smoking Status: Never smoker Tobacco Use: Non-smoker Assessment/Plan This is a 52 years old female patient admitted to inpatient rehab unit for acute ischemic infarct of the left basal ganglia with resultant right-sided hemiplegia and right facial droop and motor aphasia #1 acute ischemic infarct of the left basal ganglia: Patient is on aspirin, Plavix and statins. Her blood pressure is under control, at goal. Her routine blood work was unremarkable. Mild improvement on the right lower extremity but right upper extremity is still very flaccid. Continue PT and OT and speech evaluation and treatment #2 stable zoster: In her back, small area of blistering. She is on Zovirax. #3 Oropharyngeal dysphagia: Secondary to acute stroke. She is on a regular diet. She has been seen by speech therapy. #4 hypertension: Blood pressure stable, continue lisinopril. #5 hyperlipidemia: Continue statins. #6 restless leg syndrome: Continue Mirapex. #7 depression: Stable, continue Lexapro. #8 DVT prophylaxis: Subcut Lovenox. Bowel and bladder care Code Visit Inpatient E&M: 41608 Subs Hosp L2
--- NOTE | 2018-04-23 16:41 | PN_ITS ---
Subjective: Seen and examined. Patient has right-sided weakness with aphasia and right facial droop. Slurred speech. Patient had acute ischemic infarct of left basal ganglia. Vitals/I&O's: Vital Signs Temp Pulse Resp BP Pulse Ox 97.8 F 73 18 126/79 H 96 04/23/18 07:50 04/23/18 07:50 04/23/18 07:50 04/23/18 07:50 04/23/18 07:50 Oxygen Delivery Method Room Air Weight: 308 lb 0.478 oz Body Mass Index (BMI) 48.5 Finger Stick Blood Glucose 110 Intake and Output for Last 24 Hours 04/21/18 04/22/18 04/23/18 23:59 23:59 23:59 Intake Total 480 / 480 420 / 420 360 / 360 Balance 480 / 480 420 / 420 360 / 360 General: Alert, Oriented x3, Cooperative HEENT: Atraumatic, PERRLA, EOMI, Normocephalic, - Oral: Moist Mucosa Neck: Supple, No JVD, Negative Carotid Bruits Lungs: Clear to auscultation, Normal air movement Cardiovascular: Regular rate, No murmurs Abdomen: Bowel Sounds Present, Soft, Non Tender, Non-Distended Extremities: No edema, Capillary Refill Less than 3 Seconds Skin: No rashes, No breakdown Musculoskeletal: No Tenderness to Palpation of Joints or Extremities, Arthritic Changes Neurological: - - Right facial droop. Motor aphasia with language deficit. 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 Psych/Mental Status: Normal Affect, Appropriate Current Medications Aspirin (Aspirin, Baby) 81 mg PO DAILY@0800 [facility] Last Admin: 04/23/18 09:33 Dose: 81 mg Atorvastatin Calcium (Lipitor) 80 mg PO QHS [facility] Last Admin: 04/22/18 21:01 Dose: 80 mg Bisacodyl (Dulcolax) 10 mg RECTAL .PRN X 1 PRN PRN Reason: Constipation Calamine/Phenol (Calmoseptine Ointment) 1 applic TOPICAL BID [facility]; Protocol Last Admin: 04/23/18 09:38 Dose: 1 applicatio Clopidogrel Bisulfate (Plavix) 75 mg PO DAILY [facility] Last Admin: 04/23/18 09:33 Dose: 75 mg Cyclobenzaprine HCl (Flexeril) 10 mg PO TID [facility] Last Admin: 04/23/18 13:13 Dose: 10 mg Enoxaparin Sodium (Lovenox) 40 mg SC DAILY@0600 [facility] Last Admin: 04/23/18 05:38 Dose: 40 mg Escitalopram Oxalate (Lexapro) 10 mg PO DAILY [facility] Last Admin: 04/23/18 09:33 Dose: 10 mg Lactobacillus Acidophilus (Acidophilus) 1 tablet PO BID [facility] Last Admin: 04/23/18 09:33 Dose: 1 tablet Lisinopril (Zestril) 10 mg PO DAILY [facility] Last Admin: 04/23/18 09:33 Dose: 10 mg Magnesium Hydroxide (Milk Of Magnesia) 30 ml PO .PRN X 1 PRN PRN Reason: Constipation Nystatin (Mycostatin Powder) 1 applic TOPICAL BID [facility]; Protocol Last Admin: 04/23/18 09:39 Dose: 1 applicatio Pramipexole Dihydrochloride (Mirapex) 0.125 mg PO QHS [facility] Last Admin: 04/22/18 21:01 Dose: 0.125 mg Senna/Docusate Sodium (Senokot-S, Dee-Colace) 2 tablet PO BID [facility] Last Admin: 04/23/18 09:33 Dose: Not Given Medical Necessity - Tobacco Use Smoking Status: Never smoker Tobacco Use: Non-smoker Assessment/Plan This is a 52 years old female patient admitted to inpatient rehab unit for acute ischemic infarct of the left basal ganglia with resultant right-sided hemiplegia and right facial droop and motor aphasia #1 acute ischemic infarct of the left basal ganglia: Patient is on aspirin, Plavix and statins. Her blood pressure is under control, at goal. Her routine blood work was unremarkable. Mild improvement on the right lower extremity but right upper extremity is still very flaccid. Continue PT and OT and speech evaluation and treatment #2 stable zoster: In her back, small area of blistering. She is on Zovirax. #3 Oropharyngeal dysphagia: Secondary to acute stroke. She is on a regular diet. She has been seen by speech therapy. #4 hypertension: Blood pressure stable, continue lisinopril. #5 hyperlipidemia: Continue statins. #6 restless leg syndrome: Continue Mirapex. #7 depression: Stable, continue Lexapro. #8 DVT prophylaxis: Subcut Lovenox. Bowel and bladder care Code Visit Inpatient E&M: 64853 Subs Hosp L2
[2018-04-23 21:00] VITALS: BP 120/75; PULSE 82; RESP 18; TEMP 37.1; O2SAT 92; BMI 48.5
[2018-04-23] MEDS: Pramipexole Di-HCl 0.125 MG Tablet PO (21:03)
[2018-04-23] MEDS: Senna/Docusate Sodium 1 Tablet 2 TABLET PO (21:03)
[2018-04-23] MEDS: Atorvastatin Calcium 80 MG Tablet PO (21:03)
--- NOTE | 2018-04-24 01:55 | NURSING ---
Reviewed and agree with INSOLE CHANNELER documentation and FIMs charting.
[2018-04-24] MEDS: Enoxaparin 40 MG/0.4 ML Syringe SC (05:22)
[2018-04-24 07:21] LABS: Bedside Glucose 107 mg/dL (70-110)
[2018-04-24] MEDS: Aspirin 81 MG TAB.CHEW PO (09:17)
[2018-04-24] MEDS: Nystatin Powder 15gm Bottle 1 APPLIC TOPICAL ×2 (09:20→22:31)
[2018-04-24] MEDS: Clopidogrel Bisulfate 75 MG Tablet PO (09:20)
[2018-04-24] MEDS: Menthol/Lanolin/Calamine/Znox 113 GM Tube 1 APPLIC TOPICAL ×2 (09:20→22:31)
[2018-04-24] MEDS: Escitalopram Oxalate 10 MG Tablet PO (09:20)
[2018-04-24] MEDS: Lisinopril 10 MG Tablet PO (09:34)
[2018-04-24 09:39] VITALS: BP 129/75; PULSE 78; RESP 16; TEMP 36.9; O2SAT 94
--- NOTE | 2018-04-24 09:42 | PCM.PN.NEU ---
Subjective: Patient seen, continues to have right sided weakness, and some slurred speech. She is able to move and raise her right leg and hold for a count of 5, no movement noted in the right arm or hand. Tolerating therapy, pain is controlled. - Physical Exam General: Alert, Oriented x3, Cooperative HEENT: Atraumatic, PERRLA, EOMI, Normocephalic Neck: Supple, No JVD, Negative Carotid Bruits Lungs: Clear to auscultation, Normal air movement Cardiovascular: Regular rate, No murmurs Abdomen: Bowel Sounds Present, Soft, Non Tender Extremities: No edema, Capillary Refill Less than 3 Seconds Skin: No rashes, No breakdown Musculoskeletal: No Tenderness to Palpation of Joints or Extremities Neurological: Cranial nerves II-XII grossly intact Psych/Mental Status: Normal Affect, Appropriate, Alert and oriented to time, place, person, mood and affect Vital Signs Temp Pulse Resp BP Pulse Ox 98.4 F 78 16 129/75 H 94 04/24/18 09:39 04/24/18 09:39 04/24/18 09:39 04/24/18 09:39 04/24/18 09:39 Oxygen Delivery Method Room Air Weight: 139.72 kg Body Mass Index (BMI) 48.5 Finger Stick Blood Glucose 110 Intake and Output for Last 24 Hours 04/22/18 04/23/18 04/24/18 23:59 23:59 23:59 Intake Total 420 / 420 360 / 360 360 / 360 Balance 420 / 420 360 / 360 360 / 360 POC Glucose 04/24/18 06:51 POC Glucose 107 Active Medications Aspirin (Aspirin, Baby) 81 mg PO DAILY@0800 [facility] Last Admin: 04/24/18 09:17 Dose: 81 mg Atorvastatin Calcium (Lipitor) 80 mg PO QHS [facility] Last Admin: 04/23/18 21:03 Dose: 80 mg Bisacodyl (Dulcolax) 10 mg RECTAL .PRN X 1 PRN PRN Reason: Constipation Calamine/Phenol (Calmoseptine Ointment) 1 applic TOPICAL BID [facility]; Protocol Last Admin: 04/24/18 09:20 Dose: 1 applicatio Clopidogrel Bisulfate (Plavix) 75 mg PO DAILY [facility] Last Admin: 04/24/18 09:20 Dose: 75 mg Cyclobenzaprine HCl (Flexeril) 10 mg PO TID [facility] Last Admin: 04/24/18 05:22 Dose: 10 mg Enoxaparin Sodium (Lovenox) 40 mg SC DAILY@0600 [facility] Last Admin: 04/24/18 05:22 Dose: 40 mg Escitalopram Oxalate (Lexapro) 10 mg PO DAILY [facility] Last Admin: 04/24/18 09:20 Dose: 10 mg Lactobacillus Acidophilus (Acidophilus) 1 tablet PO BID [facility] Last Admin: 04/24/18 09:20 Dose: 1 tablet Lisinopril (Zestril) 10 mg PO DAILY [facility] Last Admin: 04/24/18 09:34 Dose: 10 mg Magnesium Hydroxide (Milk Of Magnesia) 30 ml PO .PRN X 1 PRN PRN Reason: Constipation Nystatin (Mycostatin Powder) 1 applic TOPICAL BID [facility]; Protocol Last Admin: 04/24/18 09:20 Dose: 1 applicatio Pramipexole Dihydrochloride (Mirapex) 0.125 mg PO QHS [facility] Last Admin: 04/23/18 21:03 Dose: 0.125 mg Senna/Docusate Sodium (Senokot-S, Dee-Colace) 2 tablet PO BID [facility] Last Admin: 04/24/18 09:29 Dose: Not Given Medical Necessity - Tobacco Use Smoking Status: Never smoker Tobacco Use: Non-smoker Assessment/Plan 52 yo right handed white female with stroke risk factors including dm, htn, frank now with left bg infarct, not on asa at home, no history of tob. admitted to rehab with goal of restoring previous functional independence plan: PT for gait and balance OT for ADLs speech therapy for dysarthria stroke risk reduction: permissive high BP until Sunday04/17/18, then start on Lisinopril 10mg daily, bs control -> obtain A1c, continue asa 81mg, and statin 80mg, await hyper-coagulation eval, echo -> EJ 60%, stage I diastolic dysfunction, normal LV function Hx of RLS: on Mirapex PRN analgesics constipation: bowl protocol Shingles - start on Acyclovir 800mg 5xday => last was yesterday -> shingles is resolving, area is healing nicely repeat CPAP titration as out patient
--- NOTE | 2018-04-24 09:48 | PN.NEURO_ITS ---
Subjective: Patient seen, continues to have right sided weakness, and some slurred speech. She is able to move and raise her right leg and hold for a count of 5, no movement noted in the right arm or hand. Tolerating therapy, pain is controlled. - Physical Exam General: Alert, Oriented x3, Cooperative HEENT: Atraumatic, PERRLA, EOMI, Normocephalic Neck: Supple, No JVD, Negative Carotid Bruits Lungs: Clear to auscultation, Normal air movement Cardiovascular: Regular rate, No murmurs Abdomen: Bowel Sounds Present, Soft, Non Tender Extremities: No edema, Capillary Refill Less than 3 Seconds Skin: No rashes, No breakdown Musculoskeletal: No Tenderness to Palpation of Joints or Extremities Neurological: Cranial nerves II-XII grossly intact Psych/Mental Status: Normal Affect, Appropriate, Alert and oriented to time, place, person, mood and affect Vital Signs Temp Pulse Resp BP Pulse Ox 98.4 F 78 16 129/75 H 94 04/24/18 09:39 04/24/18 09:39 04/24/18 09:39 04/24/18 09:39 04/24/18 09:39 Oxygen Delivery Method Room Air Weight: 139.72 kg Body Mass Index (BMI) 48.5 Finger Stick Blood Glucose 110 Intake and Output for Last 24 Hours 04/22/18 04/23/18 04/24/18 23:59 23:59 23:59 Intake Total 420 / 420 360 / 360 360 / 360 Balance 420 / 420 360 / 360 360 / 360 POC Glucose 04/24/18 06:51 POC Glucose 107 Active Medications Aspirin (Aspirin, Baby) 81 mg PO DAILY@0800 [facility] Last Admin: 04/24/18 09:17 Dose: 81 mg Atorvastatin Calcium (Lipitor) 80 mg PO QHS [facility] Last Admin: 04/23/18 21:03 Dose: 80 mg Bisacodyl (Dulcolax) 10 mg RECTAL .PRN X 1 PRN PRN Reason: Constipation Calamine/Phenol (Calmoseptine Ointment) 1 applic TOPICAL BID [facility]; Protocol Last Admin: 04/24/18 09:20 Dose: 1 applicatio Clopidogrel Bisulfate (Plavix) 75 mg PO DAILY [facility] Last Admin: 04/24/18 09:20 Dose: 75 mg Cyclobenzaprine HCl (Flexeril) 10 mg PO TID [facility] Last Admin: 04/24/18 05:22 Dose: 10 mg Enoxaparin Sodium (Lovenox) 40 mg SC DAILY@0600 [facility] Last Admin: 04/24/18 05:22 Dose: 40 mg Escitalopram Oxalate (Lexapro) 10 mg PO DAILY [facility] Last Admin: 04/24/18 09:20 Dose: 10 mg Lactobacillus Acidophilus (Acidophilus) 1 tablet PO BID [facility] Last Admin: 04/24/18 09:20 Dose: 1 tablet Lisinopril (Zestril) 10 mg PO DAILY [facility] Last Admin: 04/24/18 09:34 Dose: 10 mg Magnesium Hydroxide (Milk Of Magnesia) 30 ml PO .PRN X 1 PRN PRN Reason: Constipation Nystatin (Mycostatin Powder) 1 applic TOPICAL BID [facility]; Protocol Last Admin: 04/24/18 09:20 Dose: 1 applicatio Pramipexole Dihydrochloride (Mirapex) 0.125 mg PO QHS [facility] Last Admin: 04/23/18 21:03 Dose: 0.125 mg Senna/Docusate Sodium (Senokot-S, Dee-Colace) 2 tablet PO BID [facility] Last Admin: 04/24/18 09:29 Dose: Not Given Medical Necessity - Tobacco Use Smoking Status: Never smoker Tobacco Use: Non-smoker Assessment/Plan 52 yo right handed white female with stroke risk factors including dm, htn, frank now with left bg infarct, not on asa at home, no history of tob. admitted to rehab with goal of restoring previous functional independence plan: PT for gait and balance OT for ADLs speech therapy for dysarthria stroke risk reduction: permissive high BP until Sunday04/17/18, then start on Lisinopril 10mg daily, bs control -> obtain A1c, continue asa 81mg, and statin 80mg, await hyper-coagulation eval, echo -> EJ 60%, stage I diastolic dysfunction, normal LV function Hx of RLS: on Mirapex PRN analgesics constipation: bowl protocol Shingles - start on Acyclovir 800mg 5xday => last was yesterday -> shingles is resolving, area is healing nicely repeat CPAP titration as out patient
[2018-04-24 17:00] VITALS: BMI 48.5
--- NOTE | 2018-04-24 19:00 | NURSING ---
Daughter told this nurse that it looks like her mother is getting a black eye under the left eye. This nurse assessed patient with daughter present and there was no black eye but slight dark circles under both eyes. Patient has a pink linear roseanne in the skin fold of her left eye and no other discoloration seen. When patient was provided a mirror with another nurse present, patient made a joke that she looks old and denied having a black eye or seeing one with daughter present. No swelling noted. Patient did make a comment with daughter present that she may have bumped eye while laying in bed today.
--- NOTE | 2018-04-24 19:05 | NURSING ---
This nurse accompanied ALBERTO Le into room to assist with toileting needs. This nurse assessed a pink line under left eye in skinfold. No discoloration or black eye noted. Pt was provided a large mirror to self assess and denied any appearance of bruising. Will continue to monitor.
[2018-04-24 22:00] VITALS: BP 143/89; PULSE 88; RESP 18; TEMP 36.6; O2SAT 98
[2018-04-24] MEDS: Atorvastatin Calcium 80 MG Tablet PO (22:31)
[2018-04-24] MEDS: Pramipexole Di-HCl 0.125 MG Tablet PO (22:31)
[2018-04-24 23:33] VITALS: BMI 48.5
--- NOTE | 2018-04-25 02:14 | NURSING ---
Reviewed and agree with SU[employer] documentation and FIMs charting
--- NOTE | 2018-04-25 03:51 | NURSING ---
Reviewed and agree with STORY READER documentation and FIMs charting.
[2018-04-25] MEDS: Enoxaparin 40 MG/0.4 ML Syringe SC (06:46)
[2018-04-25 07:59] VITALS: BP 133/80; PULSE 77; RESP 16; TEMP 36.9; O2SAT 91
[2018-04-25] MEDS: Nystatin Powder 15gm Bottle 1 APPLIC TOPICAL ×2 (08:20→21:31)
[2018-04-25] MEDS: Menthol/Lanolin/Calamine/Znox 113 GM Tube 1 APPLIC TOPICAL ×2 (08:20→21:30)
[2018-04-25] MEDS: Aspirin 81 MG TAB.CHEW PO (08:22)
[2018-04-25] MEDS: Clopidogrel Bisulfate 75 MG Tablet PO (08:22)
[2018-04-25] MEDS: Escitalopram Oxalate 10 MG Tablet PO (08:22)
[2018-04-25] MEDS: Lisinopril 10 MG Tablet PO (08:22)
--- NOTE | 2018-04-25 10:00 | NURSING ---
Accompanied director of nursing into pt room at this time to discuss pt's feelings of safety. Pt states she feels safe on this unit. Pt daughter's claims nonvalid. Pt assessed at this time by director of nursing and Nurse practitioner. No visible evidence of bruising/edema noted to left eye. Slight redness in crease underneath left eye, pt denies any pain/discomfort to area.
--- NOTE | 2018-04-25 12:30 | CASEMGMT ---
Social Work Team collaborating and discharge date has been set for 04/26/18, patient and patient family are agreeable to discharge date and recommendation for patient to transition to a fpc facility. As perviously charted patient plans to discharge to the [facility]. Patient requesting for transportation to be set up via wheelchair van. Support given. Telephone call to [facility] [email or web address] transportation set up for 04/26/18 at 2:00pm. Transportation form completed and placed with patient discharge information. [facility] confirming to be able to accept patient on 04/26/18. This social director faxed discharge information and PASRR results as well as communicated transportation time. Proposed discharge date: 04/26/18 PLAN: [facility] Frank MSW
--- NOTE | 2018-04-25 14:43 | NURSING ---
pt aware of dc date of park to [facility] [address]. cm with paper to sign with nurse. pt asked, am i leaving park because of my daughter? cm informed pt of reasoning d/t accusations made. pt's clarita aleman aware and director of rehab. will set up transportation and let pt and son know
--- NOTE | 2018-04-25 15:45 | PCM.TXEXTCAR ---
- Diet 04/15/18 16:37 Diet: Regular Diet Food consistency:: Mechanical Soft/Ground Liquid Consistency:: [place] Thick - Wound(s) LAC Wound Type: IV wound rt lower back Wound Type: RASH RIGHT POSTERIOR THIGH Wound Type: RASH R Faust Wound Type: Abrasion - Therapies Weight Bearing: Weight bearing as tolerated Physical Therapy: Eval and Treat Occupational Therapy: Eval and Treat Speech Therapy: Eval and Treat - Allergies/Procedures Done in Hospital Allergies/Adverse Reactions: Allergies prednisone Adverse Reaction (Verified 04/13/18 13:50) Rash - Type of Care/Length of Stay Estimated LOS: More Than 30 Days Type of Care Needed: Skilled Rehab Potential: Good Prognosis: Good - Additional Orders/Day of Discharge Day of Discharge: 04/26/18 - Dietary and Speech Recommendations Dietitian Recommendations/Changes: Suggest therapeutic diet change to 2000 calorie-controlled, cardiac with consistency/texture as per speech. - Follow Up Care Primary Care Physician: Lefty Paula DO [Primary Care Provider] -
--- NOTE | 2018-04-25 15:50 | DCINST_ITS ---
- Discharge Diagnoses Reason(s) for Visit for Discharge Instructions: CVA You will use the following diet at home:: Regular Your food should be the consistency of: Regular Your liquids should be the consistency of: Regular/Thin Discharge Activity: May Not Drive, May Shower, Use Walker Weight Bearing Status: Weight bearing as tolerated Call your doctor if you observe: Fever of 101 or Higher, Coldness, Increased Pain, Numbness or Tingling, Change in Color, Inability to urinate, Inability to have a bowel movement, Using more than one pad per hour, Shortness of breath, Dizziness, Fainting spells, Swelling in the ankles, Chest pain, Prolonged hiccoughing, Increased palpitations (irregular heartbeat), Calf discomfort, Uncontrolled pain Allergies/Adverse Reactions: Allergies prednisone Adverse Reaction (Verified 04/13/18 13:50) Rash Medications to take at Discharge Escitalopram Oxalate [Lexapro] 10 mg PO DAILY 04/13/18 Lisinopril [Zestril] 10 mg PO DAILY 04/13/18 Aspirin [Aspirin, Baby] 81 mg PO DAILY@0800 04/15/18 Atorvastatin Calcium [Lipitor] 80 mg PO QHS 04/15/18 Nystatin Powder [Mycostatin Powder] 1 applic TOPICAL BID 04/15/18 Clopidogrel Bisulfate [Plavix] 75 mg PO DAILY tablet 04/25/18 Cyclobenzaprine [Flexeril] 10 mg PO TID #90 tab 04/25/18 Lactobacillus Acidophilus [Acidophilus] 1 tablet PO BID tablet 04/25/18 Menthol/Lanolin/Calamine/Znox [Calmoseptine Ointment] 1 applic TOPICAL BID tube 04/25/18 Pramipexole Di-HCl [Mirapex] 0.125 mg PO QHS #30 tab 04/25/18 The following prescriptions were given: Pramipexole Di-HCl [Mirapex] 0.125 mg PO QHS #30 tab Cyclobenzaprine [Flexeril] 10 mg PO TID #90 tab Primary Care Physician: Lefty Paula DO [Primary Care Provider] - Test Results: Test results from this visit will be discussed in further detail at your follow- up appointment, if applicable. Proposed Discharge Date: 04/26/18
--- NOTE | 2018-04-25 15:52 | DS.PCM_ITS ---
Rehab Discharge Summary DATE OF ADMISSION: 04/15/18 DATE OF DISCHARGE: 04/26/18 - Rehab Diagnosis CVA - Physical Exam General: Alert, Oriented x3, Cooperative HEENT: Atraumatic, PERRLA, EOMI, Normocephalic Neck: Supple, No JVD, Negative Carotid Bruits Lungs: Clear to auscultation, Normal air movement Cardiovascular: Regular rate, No murmurs Abdomen: Bowel Sounds Present, Soft, Non Tender Extremities: No edema, Capillary Refill Less than 3 Seconds Skin: No rashes, No breakdown Musculoskeletal: No Tenderness to Palpation of Joints or Extremities Neurological: Cranial nerves II-XII grossly intact Psych/Mental Status: Normal Affect, Appropriate, Alert and oriented to time, place, person, mood and affect Vital Signs Temp Pulse Resp BP Pulse Ox 98.4 F 77 16 133/80 H 91 04/25/18 07:59 04/25/18 07:59 04/25/18 07:59 04/25/18 07:59 04/25/18 07:59 Oxygen Delivery Method Room Air Weight: 140.3 kg Body Mass Index (BMI) 48.5 Finger Stick Blood Glucose 110 Intake and Output for Last 24 Hours 04/23/18 04/24/18 04/25/18 23:59 23:59 23:59 Intake Total 360 / 360 840 / 840 Balance 360 / 360 840 / 840 Active Medications Aspirin (Aspirin, Baby) 81 mg PO DAILY@0800 [facility] Last Admin: 04/25/18 08:22 Dose: 81 mg Atorvastatin Calcium (Lipitor) 80 mg PO QHS [facility] Last Admin: 04/24/18 22:31 Dose: 80 mg Bisacodyl (Dulcolax) 10 mg RECTAL .PRN X 1 PRN PRN Reason: Constipation Calamine/Phenol (Calmoseptine Ointment) 1 applic TOPICAL BID [facility]; Protocol Last Admin: 04/25/18 08:20 Dose: 1 applicatio Clopidogrel Bisulfate (Plavix) 75 mg PO DAILY [facility] Last Admin: 04/25/18 08:22 Dose: 75 mg Cyclobenzaprine HCl (Flexeril) 10 mg PO TID [facility] Last Admin: 04/25/18 13:08 Dose: 10 mg Enoxaparin Sodium (Lovenox) 40 mg SC DAILY@0600 [facility] Last Admin: 04/25/18 06:46 Dose: 40 mg Escitalopram Oxalate (Lexapro) 10 mg PO DAILY [facility] Last Admin: 04/25/18 08:22 Dose: 10 mg Lactobacillus Acidophilus (Acidophilus) 1 tablet PO BID [facility] Last Admin: 04/25/18 08:22 Dose: 1 tablet Lisinopril (Zestril) 10 mg PO DAILY [facility] Last Admin: 04/25/18 08:22 Dose: 10 mg Magnesium Hydroxide (Milk Of Magnesia) 30 ml PO .PRN X 1 PRN PRN Reason: Constipation Nystatin (Mycostatin Powder) 1 applic TOPICAL BID [facility]; Protocol Last Admin: 04/25/18 08:20 Dose: 1 applicatio Pramipexole Dihydrochloride (Mirapex) 0.125 mg PO QHS [facility] Last Admin: 04/24/18 22:31 Dose: 0.125 mg Senna/Docusate Sodium (Senokot-S, Dee-Colace) 2 tablet PO BID [facility] Last Admin: 04/25/18 08:19 Dose: Not Given Discharge Activity: May Not Drive, May Shower, Use Walker Weight Bearing Status: Weight bearing as tolerated Call your doctor if you observe: Fever of 101 or Higher, Coldness, Increased Pain, Numbness or Tingling, Change in Color, Inability to urinate, Inability to have a bowel movement, Using more than one pad per hour, Shortness of breath, Dizziness, Fainting spells, Swelling in the ankles, Chest pain, Prolonged hiccoughing, Increased palpitations (irregular heartbeat), Calf discomfort, Uncontrolled pain Home Medications: Medications to take at Discharge Escitalopram Oxalate [Lexapro] 10 mg PO DAILY 04/13/18 Lisinopril [Zestril] 10 mg PO DAILY 04/13/18 Aspirin [Aspirin, Baby] 81 mg PO DAILY@0800 04/15/18 Atorvastatin Calcium [Lipitor] 80 mg PO QHS 04/15/18 Nystatin Powder [Mycostatin Powder] 1 applic TOPICAL BID 04/15/18 Clopidogrel Bisulfate [Plavix] 75 mg PO DAILY tablet 04/25/18 Cyclobenzaprine [Flexeril] 10 mg PO TID #90 tab 04/25/18 Lactobacillus Acidophilus [Acidophilus] 1 tablet PO BID tablet 04/25/18 Menthol/Lanolin/Calamine/Znox [Calmoseptine Ointment] 1 applic TOPICAL BID tube 04/25/18 Pramipexole Di-HCl [Mirapex] 0.125 mg PO QHS #30 tab 04/25/18 Following Prescrptions Were Given to Patient: Pramipexole Di-HCl [Mirapex] 0.125 mg PO QHS #30 tab Cyclobenzaprine [Flexeril] 10 mg PO TID #90 tab Primary Care Physician: Lefty Paula DO [Primary Care Provider] - Disposition: Snf facility Minutes spent on discharge:: 40 Patient Condition:: Fair Rehab Course 52 yo right handed white female with history of dm, HTN, presented to [facility] with right side weakness, diagnosed with left bg infarct. also history of RLS, took Mirapex last night which helped. lives alone, one story house, one step. 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 workup otherwise unrevealing in hospital, now admitted to [facility] rehab with goal of restoring previous level of functional independence. currently reports constipation but no other complaints, tolerating regular diet. history of HAROLDO good compliance but hasn't had repeat study in over 5 yrs. While in the Rehab Unit (RU) his other medical conditions were monitored. While in the RU he improved with therapy and gained strength. Summary of Care: - PT for gait and balance - OT for ADLs - speech therapy for dysarthria - stroke risk reduction: permissive high BP until Sunday04/17/18, then start on Lisinopril 10mg daily, bs control -> obtain A1c, continue asa 81mg, and statin 80mg, await hyper-coagulation eval, echo -> EJ 60%, stage I diastolic dysfunction, normal LV function - Hx of RLS: on Mirapex - PRN analgesics - constipation: bowl protocol - Shingles - start on Acyclovir 800mg 5xday => last was yesterday -> shingles is resolving, area is healing nicely - repeat CPAP titration as out patient Summary of Therapy Sessions: With Physical therapy, she has walked 15 feet using mickey walker and wall rail at max assist. With transfers she is moderate assist of one to go from a sitting to a standing position. With Occupational therapy, she is able to do grooming at moderate assist. She is moderate assist to get in and out of the shower, She is max assist for bathing. She is total assist for toileting needs, hygiene and dressing. With Speech therapy, working on compensatory techniques for eating and drinking she is on nectar thicken liquids. Did a swallow evaluation and she would intermittently protect her her airway. She continues to have right visual field deficits, will continue to work on this. With Nursing her vital signs are stable, pain is well controlled. Her shingles have improved with treatment. Meaningful Use Info Meaningful Use Diagnoses (Choose all that apply): Ischemic CVA - CVA Therapy Assessed for PT,OT and/or ST?: Yes - Ischemic Stroke Antithrombotic order at d/c?: Yes Dx of Atrial fib/flutter?: No Statins at discharge?: Yes Primary Dx Acute Ischemic CVA?: Yes IV tPA ordered during stay?: No Reason IV t-PA not ordered: Treatment not Indicated
[2018-04-25 16:15] VITALS: BMI 48.5
[2018-04-25] MEDS: Pramipexole Di-HCl 0.125 MG Tablet PO (21:31)
[2018-04-25] MEDS: Atorvastatin Calcium 80 MG Tablet PO (21:31)
[2018-04-25] MEDS: Senna/Docusate Sodium 1 Tablet 2 TABLET PO (21:32)
[2018-04-25 22:00] VITALS: BP 135/75; PULSE 92; RESP 16; TEMP 37; O2SAT 94
[2018-04-26 00:16] VITALS: BMI 48.5
--- NOTE | 2018-04-26 03:02 | NURSING ---
REVIEWED AND AGREE WITH PATHOLOGIST ASSISTANT'S FIM AND HANDOFF CHARTING.
[2018-04-26] MEDS: Enoxaparin 40 MG/0.4 ML Syringe SC (05:49)
[2018-04-26 08:26] VITALS: BP 121/71; PULSE 90; RESP 18; TEMP 36.9; O2SAT 92
[2018-04-26] MEDS: Senna/Docusate Sodium 1 Tablet 2 TABLET PO (08:27)
[2018-04-26] MEDS: Lisinopril 10 MG Tablet PO (08:27)
[2018-04-26] MEDS: Escitalopram Oxalate 10 MG Tablet PO (08:28)
[2018-04-26] MEDS: Aspirin 81 MG TAB.CHEW PO (08:28)
[2018-04-26] MEDS: Clopidogrel Bisulfate 75 MG Tablet PO (08:28)
[2018-04-26] MEDS: Menthol/Lanolin/Calamine/Znox 113 GM Tube 1 APPLIC TOPICAL (10:23)
[2018-04-26] MEDS: Nystatin Powder 15gm Bottle 1 APPLIC TOPICAL (10:23)
[2018-04-26 11:39] VITALS: BMI 48.5
--- NOTE | 2018-04-26 15:00 | PCM.PN.HOSP ---
Subjective: Seen and examined. Patient has a right-sided weakness. Plan for transfer to SNF for further therapy. DAPT for total of 3 weeks from stroke. Objective: General: Alert, Oriented x3, Cooperative HEENT: Atraumatic, PERRLA, EOMI, Normocephalic Oral: Moist Mucosa Neck: Supple, No JVD, Negative Carotid Bruits Lungs: Clear to auscultation, Normal air movement Cardiovascular: Regular rate, No murmurs Abdomen: Bowel Sounds Present, Soft, Non Tender, Non-Distended Extremities: No edema, Capillary Refill Less than 3 Seconds Skin: No rashes, No breakdown Musculoskeletal: No Tenderness to Palpation of Joints or Extremities, Arthritic Changes Neurological: - Right facial droop. Motor aphasia with language deficit improving. Right lower extremity weakness improving. No change in right arm or hand. Psych/Mental Status: Normal Affect, Appropriate Vitals/I&O's: Vital Signs Temp Pulse Resp BP Pulse Ox 98.5 F 90 18 121/71 H 92 04/26/18 08:26 04/26/18 08:26 04/26/18 08:26 04/26/18 08:26 04/26/18 08:26 Oxygen Delivery Method Room Air Weight: 309 lb 4.937 oz Body Mass Index (BMI) 48.5 Finger Stick Blood Glucose 110 Intake and Output for Last 24 Hours 04/24/18 04/25/18 04/26/18 23:59 23:59 23:59 Intake Total 840 / 840 240 / 240 600 / 600 Balance 840 / 840 240 / 240 600 / 600 Current Medications Aspirin (Aspirin, Baby) 81 mg PO DAILY@0800 [facility] Last Admin: 04/26/18 08:28 Dose: 81 mg Atorvastatin Calcium (Lipitor) 80 mg PO QHS [facility] Last Admin: 04/25/18 21:31 Dose: 80 mg Bisacodyl (Dulcolax) 10 mg RECTAL .PRN X 1 PRN PRN Reason: Constipation Calamine/Phenol (Calmoseptine Ointment) 1 applic TOPICAL BID [facility]; Protocol Last Admin: 04/26/18 10:23 Dose: 1 applicatio Clopidogrel Bisulfate (Plavix) 75 mg PO DAILY [facility] Last Admin: 04/26/18 08:28 Dose: 75 mg Cyclobenzaprine HCl (Flexeril) 10 mg PO TID [facility] Last Admin: 04/26/18 13:44 Dose: 10 mg Enoxaparin Sodium (Lovenox) 40 mg SC DAILY@0600 [facility] Last Admin: 04/26/18 05:49 Dose: 40 mg Escitalopram Oxalate (Lexapro) 10 mg PO DAILY [facility] Last Admin: 04/26/18 08:28 Dose: 10 mg Lactobacillus Acidophilus (Acidophilus) 1 tablet PO BID [facility] Last Admin: 04/26/18 08:28 Dose: 1 tablet Lisinopril (Zestril) 10 mg PO DAILY [facility] Last Admin: 04/26/18 08:27 Dose: 10 mg Magnesium Hydroxide (Milk Of Magnesia) 30 ml PO .PRN X 1 PRN PRN Reason: Constipation Nystatin (Mycostatin Powder) 1 applic TOPICAL BID [facility]; Protocol Last Admin: 04/26/18 10:23 Dose: 1 applicatio Pramipexole Dihydrochloride (Mirapex) 0.125 mg PO QHS [facility] Last Admin: 04/25/18 21:31 Dose: 0.125 mg Senna/Docusate Sodium (Senokot-S, Dee-Colace) 2 tablet PO BID [facility] Last Admin: 04/26/18 08:27 Dose: 2 tablet Medical Necessity - Tobacco Use Smoking Status: Never smoker Tobacco Use: Non-smoker Assessment/Plan This is a 52 years old female patient admitted to inpatient rehab unit for acute ischemic infarct of the left basal ganglia with resultant right-sided hemiplegia and right facial droop and motor aphasia #1 acute ischemic infarct of the left basal ganglia: Patient is on aspirin, Plavix and statins. Her blood pressure is under control, at goal. Her routine blood work was unremarkable. Mild improvement on the right lower extremity but right upper extremity is still very flaccid. speech has slightly improved. Continue PT and OT and speech evaluation and treatment. Patient is being transferred to SNF. #2 stable zoster: In her back, small area of blistering. She is on Zovirax. #3 Oropharyngeal dysphagia: Secondary to acute stroke. She is on a regular diet. She has been seen by speech therapy. #4 hypertension: Blood pressure stable, continue lisinopril. #5 hyperlipidemia: Continue statins. #6 restless leg syndrome: Continue Mirapex. #7 depression: Stable, continue Lexapro. #8 DVT prophylaxis: Subcut Lovenox. Bowel and bladder care Patient is being discharged to SNF. Continue therapies. Code Visit Inpatient E&M: 34081 Subs Hosp L2
--- NOTE | 2018-04-26 15:03 | PN_ITS ---
Subjective: Seen and examined. Patient has a right-sided weakness. Plan for transfer to SNF for further therapy. DAPT for total of 3 weeks from stroke. Objective: General: Alert, Oriented x3, Cooperative HEENT: Atraumatic, PERRLA, EOMI, Normocephalic Oral: Moist Mucosa Neck: Supple, No JVD, Negative Carotid Bruits Lungs: Clear to auscultation, Normal air movement Cardiovascular: Regular rate, No murmurs Abdomen: Bowel Sounds Present, Soft, Non Tender, Non-Distended Extremities: No edema, Capillary Refill Less than 3 Seconds Skin: No rashes, No breakdown Musculoskeletal: No Tenderness to Palpation of Joints or Extremities, Arthritic Changes Neurological: - Right facial droop. Motor aphasia with language deficit improving. Right lower extremity weakness improving. No change in right arm or hand. Psych/Mental Status: Normal Affect, Appropriate Vitals/I&O's: Vital Signs Temp Pulse Resp BP Pulse Ox 98.5 F 90 18 121/71 H 92 04/26/18 08:26 04/26/18 08:26 04/26/18 08:26 04/26/18 08:26 04/26/18 08:26 Oxygen Delivery Method Room Air Weight: 309 lb 4.937 oz Body Mass Index (BMI) 48.5 Finger Stick Blood Glucose 110 Intake and Output for Last 24 Hours 04/24/18 04/25/18 04/26/18 23:59 23:59 23:59 Intake Total 840 / 840 240 / 240 600 / 600 Balance 840 / 840 240 / 240 600 / 600 Current Medications Aspirin (Aspirin, Baby) 81 mg PO DAILY@0800 [facility] Last Admin: 04/26/18 08:28 Dose: 81 mg Atorvastatin Calcium (Lipitor) 80 mg PO QHS [facility] Last Admin: 04/25/18 21:31 Dose: 80 mg Bisacodyl (Dulcolax) 10 mg RECTAL .PRN X 1 PRN PRN Reason: Constipation Calamine/Phenol (Calmoseptine Ointment) 1 applic TOPICAL BID [facility]; Protocol Last Admin: 04/26/18 10:23 Dose: 1 applicatio Clopidogrel Bisulfate (Plavix) 75 mg PO DAILY [facility] Last Admin: 04/26/18 08:28 Dose: 75 mg Cyclobenzaprine HCl (Flexeril) 10 mg PO TID [facility] Last Admin: 04/26/18 13:44 Dose: 10 mg Enoxaparin Sodium (Lovenox) 40 mg SC DAILY@0600 [facility] Last Admin: 04/26/18 05:49 Dose: 40 mg Escitalopram Oxalate (Lexapro) 10 mg PO DAILY [facility] Last Admin: 04/26/18 08:28 Dose: 10 mg Lactobacillus Acidophilus (Acidophilus) 1 tablet PO BID [facility] Last Admin: 04/26/18 08:28 Dose: 1 tablet Lisinopril (Zestril) 10 mg PO DAILY [facility] Last Admin: 04/26/18 08:27 Dose: 10 mg Magnesium Hydroxide (Milk Of Magnesia) 30 ml PO .PRN X 1 PRN PRN Reason: Constipation Nystatin (Mycostatin Powder) 1 applic TOPICAL BID [facility]; Protocol Last Admin: 04/26/18 10:23 Dose: 1 applicatio Pramipexole Dihydrochloride (Mirapex) 0.125 mg PO QHS [facility] Last Admin: 04/25/18 21:31 Dose: 0.125 mg Senna/Docusate Sodium (Senokot-S, Dee-Colace) 2 tablet PO BID [facility] Last Admin: 04/26/18 08:27 Dose: 2 tablet Medical Necessity - Tobacco Use Smoking Status: Never smoker Tobacco Use: Non-smoker Assessment/Plan This is a 52 years old female patient admitted to inpatient rehab unit for acute ischemic infarct of the left basal ganglia with resultant right-sided hemiplegia and right facial droop and motor aphasia #1 acute ischemic infarct of the left basal ganglia: Patient is on aspirin, Plavix and statins. Her blood pressure is under control, at goal. Her routine blood work was unremarkable. Mild improvement on the right lower extremity but right upper extremity is still very flaccid. speech has slightly improved. Continue PT and OT and speech evaluation and treatment. Patient is being transferred to SNF. #2 stable zoster: In her back, small area of blistering. She is on Zovirax. #3 Oropharyngeal dysphagia: Secondary to acute stroke. She is on a regular diet. She has been seen by speech therapy. #4 hypertension: Blood pressure stable, continue lisinopril. #5 hyperlipidemia: Continue statins. #6 restless leg syndrome: Continue Mirapex. #7 depression: Stable, continue Lexapro. #8 DVT prophylaxis: Subcut Lovenox. Bowel and bladder care Patient is being discharged to SNF. Continue therapies. Code Visit Inpatient E&M: 76227 Subs Hosp L2
[2018-04-26 15:45] VITALS: BP 121/71; PULSE 90; RESP 18; TEMP 36.9; O2SAT 92
--- NOTE | 2018-04-26 16:56 | NURSING ---
Called report to [facility]
== END 2018-04-26 14:30 | disposition skilled nursing facility (03) | DRG 57 ==
PROVIDERS: Nurse Practitioner Acute Care; Admitting Provider Psychiatry & Neurology Neurology; Family Provider Preventive Medicine Occupational Medicine; PCP Preventive Medicine Occupational Medicine; Referring Provider Psychiatry & Neurology Neurology; Visit Provider Internal Medicine
DX: I69.351 Hemiplegia and hemiparesis following cerebral infarction affecting right dominant side (principal); I69.392 Facial weakness following cerebral infarction; G25.81 Restless legs syndrome; F32.9 Major depressive disorder, single episode, unspecified; E78.5 Hyperlipidemia, unspecified; I10 Essential (primary) hypertension; I69.391 Dysphagia following cerebral infarction; R13.12 Dysphagia, oropharyngeal phase; B02.9 Zoster without complications; I69.320 Aphasia following cerebral infarction; G47.33 Obstructive sleep apnea (adult) (pediatric)
CPT/HCPCS: 36415; 74230; 80053; 82962; 83036; 83735; 84100; 85025; 92507; 92523; 92526; 92611; 97110; 97112; 97116; 97162; 97166; 97530; 97535

== ENCOUNTER → 2018-06-03 04:00 | Outpatient (REF) | payer SELFPAY ==
[2018-06-03 09:13] LABS: Hematocrit 39.3 % (37-47); Hemoglobin 12.7 g/dl (12.0-15.0); Mean Corp Hgb Conc 32.3 g/gl (32-36); Mean Corpuscular Hgb 30.3 pg (27.0-32.0); Mean Corpuscular Volume 93.8 fL (81-99); Mean Platelet Vol. 9.7 fl (6.2-12.0); Platelet Count 201 K/mm3 (150-450); RBC Distribution Width CV 12.8 % (11.6-14.6); RBC Distribution Width SD 42.9 fl (35.1-43.9); Red Blood Count 4.19 M/mm3 (4.2-5.4); White Blood Count 4.7 K/mm3 (4.4-11.0)
[2018-06-03 09:18] LABS: Scan Indicated on CBC? Y/N NO
[2018-06-03 09:32] LABS: BUN 10 mg/dL (7-18); Glucose 87 mg/dL (74-106)
[2018-06-03 09:33] LABS: Anion Gap 7 (5-15); BUN/Creat Ratio 14.3 RATIO (10-20); Calcium,Total 8.4 mg/dL (8.5-10.1); Chloride 109 mmol/L (98-107); EST Glomerular Filtration Rate 93 mL/min (>60); Est Glom Filt Rate - Afr Amer 113 mL/min (>60); Potassium 3.8 mmol/L (3.5-5.1); Sodium Level 142 mmol/L (136-145)
== END ==
LOC: OLS.AVED 04:00
PROVIDERS: Visit Provider Family Medicine
DX: G81.90 Hemiplegia, unspecified affecting unspecified side (principal)
CPT/HCPCS: 36415; 80048; 85027

== ENCOUNTER → 2018-08-02 05:00 | Outpatient (REF) | payer SELFPAY ==
[2018-08-02 08:26] LABS: Hematocrit 37.9 % (37-47); Hemoglobin 12.3 g/dl (12.0-15.0); Mean Corp Hgb Conc 32.5 g/gl (32-36); Mean Corpuscular Hgb 29.2 pg (27.0-32.0); Mean Platelet Vol. 9.6 fl (6.2-12.0); Platelet Count 241 K/mm3 (150-450); RBC Distribution Width SD 42.6 fl (35.1-43.9); Red Blood Count 4.21 M/mm3 (4.2-5.4)
[2018-08-02 08:29] LABS: Scan Indicated on CBC? Y/N NO
[2018-08-02 08:30] LABS: Anion Gap 7 (5-15); BUN 7 mg/dL (7-18); BUN/Creat Ratio 11.7 RATIO (10-20); Calcium,Total 8.5 mg/dL (8.5-10.1); Chloride 107 mmol/L (98-107); EST Glomerular Filtration Rate 111 mL/min (>60); Est Glom Filt Rate - Afr Amer 135 mL/min (>60); Glucose 89 mg/dL (74-106); Potassium 3.8 mmol/L (3.5-5.1); Sodium Level 142 mmol/L (136-145)
== END ==
LOC: OLS.AVED 05:00
PROVIDERS: Visit Provider Family Medicine
DX: I10 Essential (primary) hypertension (principal); E78.5 Hyperlipidemia, unspecified; C71.3 Malignant neoplasm of parietal lobe; Z86.73 Personal history of transient ischemic attack (TIA), and cerebral infarction without residual deficits
CPT/HCPCS: 36415; 80048; 85027

== ENCOUNTER 2019-03-18 20:34 | Emergency (ER) | payer MEDICARE, MEDICAID, SELFPAY ==
[2019-03-18 20:35] VITALS: BP 138/98; PULSE 81; RESP 16; TEMP 36.9; O2SAT 94; BMI 50.9
[2019-03-18 20:39] VITALS: BP 138/98; PULSE 82; RESP 16; O2SAT 94; O2SAT 95
--- NOTE | 2019-03-18 20:52 | CT_ITS ---
STUDY: CT BRAIN WITHOUT CONTRAST REASON FOR EXAM: Female, 53 years old. Fall. History of astrocytoma. RADIATION DOSAGE (If Supplied By Facility): CTDIvol = ( 44.99 ) mGy, DLP = ( 779.24 ) mGycm TECHNIQUE: Transaxial CT imaging of the brain was performed without administration of intravenous contrast material. Individualized dose optimization techniques were used for this CT. COMPARISON: 04/14/2018 FINDINGS: There are stable postsurgical changes from a left posterior parietal craniotomy with stable subjacent encephalomalacia in the left parietal lobe. There is no acute bleed or infarct. There are stable chronic ischemic and atrophic changes. The ventricles are normal in configuration. There is no hydrocephalus. The visualized paranasal sinuses are clear. The mastoid air cells are well aerated. There is no skull fracture. CT/Brain/Head without Contrast IMPRESSION: Stable postsurgical changes from a left posterior parietal craniotomy with subjacent encephalomalacia. Stable chronic ischemic and atrophic changes. No acute intracranial abnormality. Electronically Signed: Ruben Johnson, at 21:29 EST Tel , Service support ,
--- NOTE | 2019-03-18 21:03 | ED.VIS.FALL ---
History of Present Illness Chief Complaint: Fall Narrative: Patient presenting for evaluation secondary to a fall with a scalp laceration. Patient has an underlying history of a severe stroke with right-sided hemiparesis and speech difficulties. Patient reports that she suffered a mechanical fall today striking the back of her head. There is no loss of consciousness. Patient denies any new numbness or weakness, any visual changes. Patient is unsure of her last tetanus. Patient has baseline expressive aphasia, but she states that it feels somewhat worse at this time. Past Medical History - Allergies and Home Meds Allergies/Adverse Reactions: Allergies prednisone Adverse Reaction (Verified 03/18/19 20:38) Rash Primary Care Physician: Lefty Paula DO [Primary Care Provider] - Past Medical History: - - Right-sided hemiparesis Surgical History: hysterectomy, - - Resection of left parietal cystic astrocytoma 1999. Smoking Status: Never smoker - Family History Maternal Family History: Reports: Dementia, - - Stroke Paternal Family History: Reports: - - Atrial Fibrillation Review of Systems All systems negative except as indicated General: Denies: Chills, Fever, Sweats Eyes: Denies: Visual changes - bilaterally, Diplopia ENT: Denies: Rhinorrhea, Sore throat Cardiovascular: Denies: Chest pain, Palpitations Respiratory: Denies: Dyspnea, Cough, Dyspnea on exertion Gastrointestinal: Denies: Abdominal pain, Nausea, Vomiting, Diarrhea, Melena, Hematochezia Genitourinary: Denies: Dysuria, Hematuria, Frequency Musculoskeletal: Denies: Back pain, Extremity Pain Skin: Reports: Wounds - Scalp laceration Neurological: Reports: Weakness, Parasthesia - At baseline Physical Exam Vital Signs/Narrative: Vital Signs Temp Pulse Resp BP Pulse Ox 03/18/19 20:39 82 16 138/98 H 94 03/18/19 20:35 98.4 F 81 16 138/98 H 94 Inital Vital Signs reviewed: Yes General: Well nourished, Well developed Head: Normocephalic, - - 2 cm occipital scalp laceration with bleeding controlled Eyes: Perrl, EOMI ENT: No trauma Neck: Nontender Cardiovascular: Regular rate, Regular rhythm Respiratory: No distress, CTA bilaterally, Chest nontender Abdomen: Soft, Nontender, Nondistended, Normal bowel sounds Skin: Trauma Neurological: - - Right-sided hemiparesis at baseline. Expressive aphasia. Diagnostic/Tx/Re-eval - Medical Decision Making Patient presented secondary to a fall with a head injury. CT imaging was performed and was found to be negative. Laceration was addressed as noted in the procedure note and tetanus status was updated. Patient was discharged with outpatient follow-up with primary care for staple removal. Procedures - Lacerations No standard instances Length: 12 in Depth: Skin Shape: Linear Laceration Repair: - - Skin josé miguel Irrigated (ml): 250 Number of Sutures/[place]: 2 ED Disposition - Plan for ED Patient: Disposition: Home or Assisted Living Diagnosis: Scalp laceration Instructions: LACERATION, All Referrals: Lefty Paula DO [Primary Care Provider] - 10 Day for suture removal
[2019-03-18] MEDS: Diphth,Pertuss(Acell),Tet Vac 0.5 ML Vial IM (21:19)
[2019-03-18 22:56] VITALS: BP 137/107; PULSE 80; PULSE 81; RESP 16; O2SAT 95
[2019-03-18] MEDS: Acetaminophen 500 MG Tablet 1000 MG PO (22:56)
== END 2019-03-18 23:17 | disposition home or self-care (01) ==
PROVIDERS: Emergency Provider Emergency Medicine; Family Provider Preventive Medicine Occupational Medicine; PCP Preventive Medicine Occupational Medicine
DX: S01.01XA Laceration without foreign body of scalp, initial encounter (principal); W19.XXXA Unspecified fall, initial encounter; Y93.9 Activity, unspecified; Y92.9 Unspecified place or not applicable; Y99.9 Unspecified external cause status; Z23 Encounter for immunization; I69.351 Hemiplegia and hemiparesis following cerebral infarction affecting right dominant side; I69.320 Aphasia following cerebral infarction; Z79.02 Long term (current) use of antithrombotics/antiplatelets; Z79.82 Long term (current) use of aspirin; Z79.899 Other long term (current) drug therapy; Z85.841 Personal history of malignant neoplasm of brain; Z90.710 Acquired absence of both cervix and uterus
CPT/HCPCS: 12004; 70450; 90471; 90715; 99284

== ENCOUNTER → 2020-12-24 12:40 | Outpatient (CLI) | payer MEDICARE, MEDICAID, SELFPAY ==
--- NOTE | 2020-12-24 13:53 | ST.MBS ---
Modified Barium Swallow - Patient Information Study Date: 12/24/20 Study Time: 13:00 Direct Billable Minutes: 120 Total Minutes procedure & reportin Diagnosis: Oropharyngeal dysphagia (R.13.12) Referring Physician: Michele Barney Reason for Referral: Pt. was referred for an objective videofluoroscopy study of the swallow to r/o aspiration due to choking on meat according to pt. Medical History: Pt. has a history of CVA with left sided weakness. Pt. stated she has received speech therapy in the past to address dysphagia and she is currently on a diet of mech. soft with thin liquids Current Diet Ordered: mech. soft with thin liquids Dentition: WNL Mental Status: WNL Respiratory Status: Oxygenating on Room Air - Penetration-Aspiration Scale Penetration-Aspiration Scale: OBJECTIVE ASSESSMENT OF SWALLOW FUNCTION (QUANTITATIVE ? PER TRIAL): PENETRATION / ASPIRATION SCALE (TERAN): 1 = does not enter airway 2 = enters airway/above vocal folds/ejected 3 = enters airway/above vocal folds/not ejected 4 = enters airway/contacts vocal folds/ejected 5 = enters airway/contacts vocal folds/not ejected 6 = enters airway/below vocal folds/ejected 7 = enters airway/below vocal folds/not ejected despite effort 8 = enters airway/below vocal folds/no effort - Penetration-Aspiration Scale Score Thin Liquid via teaspoon Result: 1= does not enter airway Thin Liquid via teaspoon Trial 2 Result: 1= does not enter airway Thin Liquid via small single sip from cup Result: 1= does not enter airway Thin Liquid via sequential sips from cup Result: 1= does not enter airway Thin Liquid via single sip from straw Result: 1= does not enter airway Thin Liquid via sequential sips from straw Result: 4= enters airway/contacts vocal folds/ejected [place] Thick Liquid via small single sip from cup Result: 1= does not enter airway Honey Thick Liquid via small single sip from cup Result: 1= does not enter airway Pudding via teaspoon Result: 1= does not enter airway Cookie via teaspoon Result: 1= does not enter airway Thin Liquid via small single sip from cup Trial 2 Result: 1= does not enter airway - Oral Phase Labial Seal: No Labial Escape Tongue Control During Bolus Hold: Posterior escape of less than half of bolus Bolus Preparation/Mastication: Disorganized chewing/mashing with solid pieces of bolus unchewed Bolus Transport/Lingual Motion: Delayed initiation of tongue motion Oral Residue: Residue collection on oral structures - Pharyngeal Phase Initiation of Pharyngeal Swallow: Bolus head in pyriforms Soft Palate Elevation: No bolus between soft palate and pharyngeal wall Laryngeal Elevation: Comp. Superior move thyroid cart w/comp. apprx arytenoid cart-epig pet Anterior Hyoid Excursion: Partial anterior movement Epiglottic Movement: Complete inversion Laryngeal Vestibule Closure at Height of Swallow: Complete; no air/contrast in laryngeal vestibule Pharyngoesophageal Segment Opening: Complete distension and complete duration; no obstruction of flow Tongue Base Retraction: Trace column of contrast between tongue base & post. pharyngeal wall Pharyngeal Residue: Collection of residue within or on pharyngeal structures - residue along tongue base, vallecula and pyriforms with thin liquids - Treatment Strategies Effects of treatment strategies attemped:: Pt. cued for second swallow due to oral residue and strategy was effective to clear majority of residue - Diagnosis/Impression Diagnosis: moderate oropharyngeal dysphagia (R13.12) Impression: Pt. presents with oral phase dysphagia characterized by decrease bolus hold, slow/disorganized mastication and decreased anterior to posterior transfer of bolus resulting in oral residue and not fully masticated solid textures. Pt. presents with pharyngeal residue characterized by decreased tongue base retraction, delay in swallow initiation and decreased hyoid anterior movement resulting in bolus prematurely entering the pharynx and pooling in the vallecula and pyriform sinuses placing the pt. at a greater risk of aspiration. Pt. presented with silent penetration to the vocal folds with no aspiration. Pt. was able to complete safe swallow strategy of re-swallow to clear oral cavity with moderate verbal prompts and this was effective in clearing residues. - Recommendations Diet: Mechanical Soft Textures, Thin Liquids Compensatory Strategies: Small Bites, Small Sips, No Straws, Slow Rate, Multiple Swallows, Alternate bites/solids and sips/liquids, Sitting upright, Remain sitting upright for 30 minutes after PO intake Supervision: Distant Supervision Recommend Repeat Modified Barium Swallow: No Need for Skilled Speech Therapy Services: Yes - ST tx recommended at skilled facility Comment: tx to address diet texture analysis and instruction of safe swallow strategies Education Completed: 1. Described result of evaluation. - Status Active ST Patient: Not Active - Contact Information [facility]:: [facility] [address] [place] [address] Samantha Dudley M.A. [facility]-MANAGER QA [email or web address] 12/24/20 14:12
== END ==
PROVIDERS: PCP Preventive Medicine Occupational Medicine; Referring Provider Family Medicine; Visit Provider Family Medicine
DX: R13.10 Dysphagia, unspecified (principal)
CPT/HCPCS: 74230

== ENCOUNTER 2021-06-08 21:21 | Outpatient (CLI) | payer MEDICARE, MEDICAID, SELFPAY | END 2021-06-08 23:59 | disposition home or self-care (01) | LOC: SL 21:21 | PROVIDERS: PCP Preventive Medicine Occupational Medicine; Visit Provider Internal Medicine Critical Care Medicine | DX: G47.30 Sleep apnea, unspecified (principal) | CPT/HCPCS: 95810 ==

== ENCOUNTER → 2021-08-15 | Outpatient (CLI) | payer MEDICARE, MEDICAID, SELFPAY ==
[2021-08-15] MEDS: Zolpidem Tartrate 5 MG Tablet PO (21:00)
== END | disposition home or self-care (01) ==
LOC: SL 20:11
PROVIDERS: PCP Preventive Medicine Occupational Medicine; Visit Provider Nurse Practitioner Acute Care
DX: G47.30 Sleep apnea, unspecified (principal)
CPT/HCPCS: 95811

== ENCOUNTER 2022-03-30 13:33 | Observation (INO) | payer MEDICARE, MEDICAID, SELFPAY ==
[2022-03-30] VITALS (15 sets, daily range): BP systolic 124–154; BP diastolic 56–116; PULSE 94–116; RESP 17–20; TEMP 36.1–37.3; O2SAT 92–99; BMI 32.4; BMI 54.3; BMI 52.2
--- NOTE | 2022-03-30 13:37 | CT_ITS ---
STUDY: CT HEAD STROKE PROTOCOL W/O CONTRAST INJECTION REASON FOR EXAM: Female, 56 years old. Neuro deficit, acute, stroke suspected RADIATION DOSAGE (If Supplied By Facility): CTDIvol = ( 44.99 ) mGy, DLP = ( 812.98 ) mGycm TECHNIQUE: Transaxial CT imaging of the brain was performed without administration of intravenous contrast material. Individualized dose optimization techniques were used for this CT. COMPARISON: Comparison is made with prior study dated 03/18/2019. FINDINGS: Normal soft tissue structures. The patient is status post left posterior parietal craniotomy. Stable heterogeneous sclerosis of the skull. Normal size ventricles and extra-axial spaces for the patient''s age. Stable encephalomalacia in the posterior aspect of the left parietal occipital lobe. Once again, there is evidence of a parenchymal linear and heterogeneous calcification in the posterior parietal lobes and occipital lobes bilaterally. This is slightly worse on the left side. This may represent changes secondary to venous vascular malformation or AVMs. There are small punctate calcifications of the basal ganglia which are seen in the aging brain as a normal variant. Stable lacunar infarct in the body of the left caudate nucleus. Normal brainstem. Stable linear calcifications in the left cerebellar hemisphere. There is no intracranial hemorrhage. There are no findings of an acute ischemic infarction. Normal visualized paranasal sinuses. ASPECT score: 8 CT/STROKE Brain/Head without Cont IMPRESSION: Chronic involutional changes of the brain. Stable examination. N.B. : The above Results were Read Back by Otoniel Ott MD to Que Mcconnell and understanding confirmed on 03/30/2022 14:01:57 (ET). Electronically Signed: Otoniel Ott MD at 14:05 EST ,
--- NOTE | 2022-03-30 13:37 | RAD_ITS ---
STUDY: X-RAY CHEST REASON FOR EXAM: Female, 56 years old. Neuro deficit, acute, stroke suspected TECHNIQUE: Single AP portable view of the chest. COMPARISON: Comparison is made with prior study dated 04/13/2018. FINDINGS: EKG electrodes are seen. Mild degree of increased markings in the posterior medial segment of the left lower lobe suggestive of atelectasis. There is no demonstrated pleural abnormality. Normal size heart. Normal mediastinum and breanna. Normal visualized pulmonary arteries. Normal visualized aortic arch and descending thoracic aorta. There are degenerative changes of the visualized thoracic spine. Normal visualized ribs, clavicles, and shoulders. There is no demonstrated abnormality of the visualized soft tissue structures of the upper abdomen. RAD/Chest 1 View IMPRESSION: Mild degree of increased markings in the posterior medial segment of the left lower lobe suggestive of atelectasis. Electronically Signed: Otoniel Ott MD at 14:35 EST ,
--- NOTE | 2022-03-30 13:40 | EDS_ITS ---
HPI History of Present Illness Chief Complaint: Stroke Alert Informant: patient and EMS Onset/Context/Timing Onset: Today and Hours Context: Sudden Onset Timing: Continuous Quality and Location: Positive for Slurred Speech Current Severity: Mild Maximum Severity: Mild Associated Symptoms Associated Symptoms: Negative for Headache, Nausea, Vomiting or Chest Pain Narrative Narrative: 56-year-old female history of a prior stroke with right arm and leg weakness. Is a resident at a local nursing facility and reportedly today in the last several hours had slurred speech. Brought in by squad. Patient has chronic right upper and lower extremity weakness from the prior stroke. Prior similar symptoms: Yes Recent Illness/Hospitalization: No PFSH PFSH Medical History COVID-19 Malignant neoplasm of parietal lobe Home Medications aspirin 81 mg chewable tablet 81 mg PO DAILY HEART HEALTH 04/15/18 [History Last Taken 03/30/22] atorvastatin 80 mg tablet 80 mg PO QHS CHOLESTEROL 04/15/18 [History Last Taken 03/29/22] gabapentin 300 mg capsule 300 mg PO QHS RESTLESS LEG SYNDROME 07/28/21 [History Last Taken 03/29/22] tramadol 50 mg tablet 50 mg PO BID PAIN 07/28/21 [History Last Taken 03/30/22] clindamycin phosphate 1 % topical solution 1 applic topical QHS ROSACEA 11/22/21 [History Last Taken 03/29/22] clopidogrel 75 mg tablet 75 mg PO DAILY BLOOD THINNER 03/30/22 [History Last Taken 03/30/22] cyclobenzaprine 10 mg tablet 10 mg PO BID MUSCLE SPASMS 03/30/22 [History Last Taken 03/30/22] lisinopril 20 mg tablet 20 mg PO DAILY BLOOD PRESSURE 03/30/22 [History Last Taken 03/30/22] magnesium hydroxide 400 mg/5 mL oral suspension (Milk of Magnesia) 30 ml PO Q24H PRN Constipation 03/30/22 [History Last Taken 03/24/22] melatonin 10 mg tablet 10 mg PO QHS INSOMNIA 03/30/22 [History Last Taken 03/29/22] mirtazapine 7.5 mg tablet 7.5 mg PO QHS 03/30/22 [History Last Taken 03/29/22] trazodone 100 mg tablet 200 mg PO QHS INSOMNIA 03/30/22 [History Last Taken 03/29/22] Allergy/AdvReac Type Severity Reaction Status Date / Time prednisone AdvReac Rash Verified 03/30/22 13:39 Family History Grandmother Diabetes Surgical History H/O brain surgery Social History Smoking Status: Never smoker ROS ROS ED ROS Narrative Denies recent illness. Review of Systems ROS Unobtainable: Denies due to encephalopathy Constitutional Constitutional ED: Denies chills or fever(s) Eyes Eyes: Denies blurry vision ENT ENT ED: Denies ear pain Cardiovascular Cardiovascular: Denies chest pain Respiratory/Chest Respiratory/Chest: Denies cough or dyspnea Gastrointestinal Gastrointestinal: Denies abdominal pain Genitourinary Genitourinary ED: Denies dysuria or hematuria Musculoskeletal Musculoskeletal: Denies arthralgias Integumentary Denies abscess Neurologic Neurologic: Denies headache(s) Psychiatric Psychiatric: Denies anxiety Endocrine Endocrinology: Denies polydipsia Hematologic/Lymphatic Hematologic/Lymphatic: Denies easy bleeding Allergic/Immunologic Allergic/Immunologic ED: Denies mouth swelling or urticaria EXAM Physical Exam Narrative Exam Narrative: 50-year-old female vital signs are stable afebrile. I met her in the ambulance bay. H EENT exam give dry reactive light. No facial droop. Understandable mildly slurred speech. Neck nontender. Lungs clear to auscultation. Heart regular rhythm rate about 100 no murmur. Chest wall nontender. Abdomen soft nontender. She has weakness in both right upper and lower extremity. Left upper left lower extremity unremarkable. Neurologically she is awake. She is alert. She answers questions follows commands. She has mildly slowed but audible speech no facial droop. She has substantial weakness of her right arm and leg which is chronic and not new today. Her NIH score equals 9. Const Vital Signs: 03/30/22 13:34 03/30/22 13:50 03/30/22 13:37 Temperature 97.0 F L Temperature Source Temporal Pulse Rate 100 108 H Respiratory Rate 17 20 H Blood Pressure 132/56 H 125/67 H Blood Pressure Mean 81 86 Pulse Ox 94 93 Oxygen Delivery Method Room Air Room Air Room Air 03/30/22 13:57 03/30/22 14:20 03/30/22 14:50 Temperature Temperature Source Pulse Rate 111 H 115 H 111 H Respiratory Rate 20 H 18 18 Blood Pressure 125/67 H 132/87 H 128/82 H Blood Pressure Mean 86 102 97 Pulse Ox 93 97 93 Oxygen Delivery Method Room Air 03/30/22 15:20 03/30/22 15:49 Temperature Temperature Source Pulse Rate 106 H 116 H Respiratory Rate 18 20 H Blood Pressure 126/80 H 128/87 H Blood Pressure Mean 95 100 Pulse Ox 99 95 Oxygen Delivery Method Positive well nourished, well developed and obese; Negative for cachectic, contractures or unkempt General Appearance ED: well developed and NAD; Negative for unkempt, cachectic or contractures Nutritional Appearance: obese; Negative for cachectic HEENT Reports moist mucous membranes; Denies dry mucous membranes atraumatic; Negative for trauma Nose: Negative for other Mouth ED: No dry mucous membranes Mouth: No dry mucous membranes Eyes PERRL and EOMs intact bilaterally General Eye ED: Negative for pale conjunctiva or scleral icterus Neck no lymphadenopathy, supple and no JVD General: Negative for tenderness Thyroid: Negative for other Chest Wall inspection of chest normal and palpation of chest normal Resp normal respiratory effort and clear to auscultation bilaterally Effort and Inspection: Negative for retractions Auscultation: Negative for rales, rhonchi or wheezes Cardio no murmurs Rate: regular rate; Negative for bradycardia or tachycardic Rhythm: regular rhythm GI normal to inspection, nondistended, normoactive bowel sounds, soft to palpation, non-tender, non-distended and no masses Inspection: Negative for abdominal distention Auscultation: normoactive bowel sounds Palpation: Negative for tender or guarding Back/Spine no CVA tenderness Extremity Negative for normal to inspection Extremity Narrative: Right arm and leg chronic weakness from a prior stroke. Left side unremarkable. General Extremety ED: Negative for deformity, edema or tenderness General Extremity: Negative for deformity or edema Neuro No oriented x3 and No no sensory deficits noted Neuro Narrative: Chronic right arm and leg weakness with prior stroke. Left arm and leg unremarkable. Slurred speech no facial droop. Sensorium / Orientation: alert, oriented to person, oriented to place and orientation impaired; Negative for oriented to time, lethargic or stuporous Speech: Negative for speech normal Motor Exam: Negative for strength 5/5 throughout Psych mental status grossly normal Appearance: Negative for unkempt Attitude: No agitated Mood & Affect: Negative for depressed, anxious or tearful Attention / Concentration: Negative for other Skin no wounds General Skin Exam: Negative for jaundice Lesions: no lesions Rashes: no rashes Trauma: Negative for abrasion NIHSS NIHSS Initial: 1a Level of Consciousness: 0 1b LOC Questions (Score 2 if aphasic/stupor): 0 1c LOC Commands (Only score 1st attempt): 0 2 Best Gaze (If aphasic, use reflexive mvmts.): 0 4 Facial Palsy: 0 5 Motor Arm Right (UN = amputation/fusion): 3 5 Motor Arm Left: 0 6 Motor Leg Right: 3 6 Motor Leg Left: 0 7 Limb ataxia (Only + if out of proportion): 2 8 Sensory (Aphasia/stupor=0 or 1, coma=2): 0 9 Best Language: 1 10 Dysarthria (mute, coma=2, intubated=UN): 0 11 Extinction and Inattention (only scored if +): 0 Total Score: 9 MDM MDM MDM Narrative Medical decision making narrative: 56-year-old prior stroke with chronic right arm and leg weakness. Today with slurred speech. Undergoing stroke protocol. Was taken from the ambulance plated directly down to CAT scan and then will be placed in a room. Repeat exam at 3:07 PM. Patient doing well. Speech improved. NIH no significant change. Discussed at length with [facility] neurologist. Given her overall history and limited change in speech we decided not to tPA the patient risk versus benefits. Her CT and CTA showed no acute processes but significant chronic changes. Have spoken to the hospitalist she will be admitted to the PCU. Lab Data Attestation: I reviewed the patient's lab results. Lab results narrative: CBC unremarkable. White count of 5. H&H of 13 and 43. PT/INR and PTT normal. Electrolytes show potassium of 3.4. A gap of 3. A normal BUN of 11 creatinine of 1. Glucose 119 and troponin less than 3. Labs: Laboratory Results - last 24 hr 03/30/22 03/30/22 03/30/22 13:25 13:25 13:25 WBC 5.3 RBC 4.65 Hgb 13.8 Hct 43.1 MCV 92.7 MCH 29.7 MCHC 32.0 RDW Std Deviation 42.7 RDW Coeff of [place] 12.7 Plt Count 197 MPV 9.7 Immature Gran % (Auto) 0.200 Neut % (Auto) 83.5 H Lymph % (Auto) 7.4 L [place] % (Auto) 7.0 Eos % (Auto) 1.5 Baso % (Auto) 0.4 Absolute Neuts (auto) 4.4 Absolute Lymphs (auto) 0.39 L Nucleated RBC % 0 PT 13.3 INR 1.0 APTT 26.8 Sodium 139 Potassium 3.4 L Chloride 106 Carbon Dioxide 30.0 Anion Gap 3 L BUN 11 Creatinine 1.04 H Estim Creat Clear Calc 56.54 Est GFR (MDRD) Af Amer 70 Est GFR (MDRD) Non-Af 58 L BUN/Creatinine Ratio 10.6 Glucose 119 H Calcium 9.0 Troponin I High Sens < 3 L Radiography Diagnostic Testing: Clinical Impression(s) from Imaging Studies Brain CT 03/30/22 13:37 IMPRESSION: Chronic involutional changes of the brain. Stable examination. N.B. : The above Results were Read Back by Otoniel Ott MD to Que Mcconnell and understanding confirmed on 03/30/2022 14:01:57 (ET). Electronically Signed: Otoniel Ott MD at 14:05 EST , ADDENDUM: 03/30/22 1412 IMPRESSION: Chronic involutional changes of the brain. Stable examination. N.B. : The above Results were Read Back by Otoniel Ott MD to Que Mcconnell and understanding confirmed on 03/30/2022 14:01:57 (ET). Electronically Signed: Otoniel Ott MD at 14:05 EST , Chest X-Ray 03/30/22 13:37 IMPRESSION: Mild degree of increased markings in the posterior medial segment of the left lower lobe suggestive of atelectasis. Electronically Signed: Otoniel Ott MD at 14:35 EST , Head/Neck CTA 03/30/22 13:42 IMPRESSION: Minimal plaque at the origin of the right internal carotid artery. N.B. : The above Results were Read Back by Otoniel Ott MD to Que Mcconnell and understanding confirmed on 03/30/2022 14:12:35 (ET). Electronically Signed: Otoniel Ott MD at 14:13 EST , ADDENDUM: 03/30/22 1420 IMPRESSION: Minimal plaque at the origin of the right internal carotid artery. N.B. : The above Results were Read Back by Otoniel Ott MD to Que Mcconnell and understanding confirmed on 03/30/2022 14:12:35 (ET). Electronically Signed: Otoniel Ott MD at 14:13 EST , Chest x-ray, portable, single view shows chronic changes no acute process. Interpreted both by myself and the radiologist. CAT scans described changes no acute process. Prior craniotomy. No bleed. No mass. No acute stroke. CTA of the brain shows chronic changes. No significant occlusion. Rhythm Strip Rhythm Strip: Sinus Tach Rate: 108 Ectopy: PVC(s) EKG Initial EKG: Attestation: I personally reviewed and interpreted this EKG as follows: Interpretation: No Acute Injury Pattern and Sinus Tachycardia Comments: Sinus tachycardia. Rate of 108. Frequent PVCs. No acute signs of VA or ischemia. No significant dysrhythmia. Discharge Plan Triage Chief Complaint: Stroke Alert ED Provider: Kraig Mcconnell Dx/Rx/DC Orders Clinical Impression: Slurred speech, Brain TIA, History of stroke Prescriptions: No Action gabapentin 300 mg capsule 300 mg PO QHS tramadol 50 mg tablet 50 mg PO BID clindamycin phosphate 1 % solution 1 applic topical QHS atorvastatin 80 MG tablet 80 mg PO QHS aspirin 81 MG tablet,chewable 81 mg PO DAILY cyclobenzaprine 10 mg Tablet 10 mg PO BID lisinopril 20 mg Tablet 20 mg PO DAILY magnesium hydroxide [Milk of Magnesia] 400 mg/5 mL Suspension 30 ml PO Q24H PRN (Reason: Constipation) trazodone 100 mg Tablet 200 mg PO QHS mirtazapine 7.5 mg Tablet 7.5 mg PO QHS melatonin 10 mg Tablet 10 mg PO QHS clopidogrel 75 MG tablet 75 mg PO DAILY Primary Care Provider: Lefty Paula Referrals: Lefty Paula DO [Primary Care Provider] - Disposition Disposition: Acute Care Hospital [facility]
--- NOTE | 2022-03-30 13:42 | CT_ITS ---
STUDY: CTA HEAD AND NECK WITH CONTRAST REASON FOR EXAM: Female, 56 years old. CVA. History of prior astrocytoma. RADIATION DOSAGE (If Supplied By Facility): CTDIvol = ( 31.91 ) mGy, DLP = ( 787.99 ) mGycm TECHNIQUE: CT angiography was performed with a multi-detector CT scanner. Data acquisition was obtained from the skull base through the vertex following intravenous administration of IV 100mL Isovue-370. MIP images were reconstructed from the axial data set. Post-processing of the angiographic images was performed, with multiplanar reformation and 3D reconstruction. Individualized dose optimization techniques were used for this CT. COMPARISON: No relevant priors. FINDINGS: Normal bilateral petrous carotid arteries. Normal right cavernous carotid artery with a normal supraclinoid bifurcation. Normal left cavernous carotid artery with a normal supraclinoid bifurcation. Normal right A1 segments of the anterior cerebral artery. Normal left A1 segments of the anterior cerebral artery. Normal intact anterior communicating artery (ACOM). Normal bilateral A2 segments of the anterior cerebral arteries. Normal right M1 and M2 segments of the middle cerebral arteries, with a normal M1 bifurcation. Normal left M1 and M2 segments of the middle cerebral arteries, with a normal M1 bifurcation. Normal right posterior communicating artery (PCOM). Normal left posterior communicating artery (PCOM). Normal bilateral vertebral arteries. Normal basilar artery with a normal basilar bifurcation. The visualized bilateral superior cerebellar (SCA) arteries are normal. Normal bilateral P1, P2 and visualized P3 segments of the posterior cerebral arteries. There is no demonstrated aneurysm of the [place]. AORTIC ARCH: There is atherosclerotic calcific plaque formation of the aortic arch and great vessels arising from the aortic arch, without a hemodynamically significant stenosis. There is a bovine origin of the great vessels with a common origin of the brachiocephalic and left common carotid artery. Normal origin of the left subclavian artery. RIGHT CAROTID ARTERIES: Normal right common carotid artery (CCA). Normal right common carotid bulb. There is mild atherosclerotic plaque formation of the origin of the right internal carotid artery with less than 50% cross sectional diameter stenosis. Normal visualized cervical portion of the right internal carotid artery. Normal origin of the right external carotid artery (ECA). LEFT CAROTID ARTERIES: Normal left common carotid artery (CCA). Normal left common carotid bulb. Normal origin of the left internal carotid (ICA) artery without a hemodynamically significant stenosis. Normal visualized cervical portion of the left internal carotid artery. Normal origin of the left external carotid artery (ECA). VERTEBRAL ARTERIES: There is enhancement within the bilateral vertebral arteries with a small left vertebral artery, and a dominant right vertebral artery. CT/STROKE CTA Head AND Neck W/Con IMPRESSION: Minimal plaque at the origin of the right internal carotid artery. N.B. : The above Results were Read Back by Otoniel Ott MD to Que Mcconnell and understanding confirmed on 03/30/2022 14:12:35 (ET). Electronically Signed: Otoniel Ott MD at 14:13 EST ,
[2022-03-30 13:48] LABS: Absolute Lymphocyte Count 0.39 X10^3/uL (0.83-4.51); Absolute Neutrophil Count 4.4 X10^3/uL (2.0-7.7); Basophil# 0.02 X10^3/uL; Basophil% 0.4 % (0-1); Eosinophil# 0.08 X10^3/uL; Eosinophils% 1.5 % (0-5); Hematocrit 43.1 % (37-47); Hemoglobin 13.8 g/dL (12.0-15.0); Lymphocyte # 0.39 X10^3/ul (0.83-4.51); Lymphocyte % 7.4 % (19-41); Mean Corpuscular Hgb 29.7 pg (27.0-32.0); Mean Corpuscular Volume 92.7 fL (81-99); Mean Platelet Vol. 9.7 fl (6.2-12.0); Monocyte# 0.37 X10^3/uL; NRBC Flagged by Analyzer 0 % (0-5); Neutrophil # 4.43 X10^3/uL (2.7-7.7); Neutrophil % 83.5 % (47-70); POSITIVE DIFFERENTIAL YES; Platelet Count 197 K/mm3 (150-450); RBC Distribution Width CV 12.7 % (11.6-14.6); RBC Distribution Width SD 42.7 fl (35.1-43.9); Red Blood Count 4.65 M/mm3 (4.2-5.4); White Blood Count 5.3 K/mm3 (4.4-11.0)
[2022-03-30 13:53] LABS: Partial Thromboplast Time 26.8 Seconds (24.1-36.2)
[2022-03-30 13:59] LABS: Prothrombin Time (Protime)PT. 13.3 SECONDS (11.7-14.9)
[2022-03-30 14:01] LABS: Differential Indicated SCAN CRITERIA MET
[2022-03-30 14:05] LABS: Anion Gap 3 (5-15); BUN 11 mg/dL (7-18); BUN/Creat Ratio 10.6 RATIO (10-20); Chloride 106 mmol/L (98-107); Creatinine, Serum 1.04 mg/dL (0.55-1.02); EST Glomerular Filtration Rate 58 mL/min (>60); Est Glom Filt Rate - Afr Amer 70 mL/min (>60); Estimated Creatinine Clearance 56.54 ml/min; Glucose 119 mg/dL (74-106); Potassium 3.4 mmol/L (3.5-5.1); Sodium Level 139 mmol/L (136-145); Troponin-I HS < 3 pg/mL (3.0-54.0)
--- NOTE | 2022-03-30 14:59 | CHAPLAIN ---
Type of Pastoral Visit ___ Initial Visit ___ Follow-up Visit ___ On-call Visit ___ General Patient Visit ___ Spiritual Assessment ___ Family Conference ___ Bereavement _x__ Rapid Response ___ Code Blue ___ Other (describe below) Pastoral Care Referral From ___ Patient ___ Family ___ Nurse ___ Physician ___ Rear Admiral ___ Optical Dispenser _x__ Other (describe below) Sacrament/Intervention ___ Active listening ___ Anointing ___ Muslim ___ Bereavement ___ Communion ___ [place] exploration ___ ___ Life review ___ Prayer ___ Reconciliation ___ Sacrament of Sick _x__ Supportive presence ___ Wedding ___ Other (describe below) Pastoral Comments patient from [facility] came for stroke alert; pt is speaking; pt taken to CT for testing; no family present
--- NOTE | 2022-03-30 15:09 | ED.RN ---
UPDATED THE AVENUE WITH PT ADMISSION STATUS
--- NOTE | 2022-03-30 16:28 | HP.PCM.HOS_ITS ---
HPI - General General Date of Service: 03/30/22 Chief Complaint: slurred speech HPI Narrative CHRISTIAN GALLARDO, is a 56 F who presents with slurred speech. Patient has had a history of a stroke that has left her with right-sided weakness and right upper extremity hemiparesis. It was noted by staff that the patient was having slurred speech. Patient herself does not notice anything different about her speech though it is slow and measured. She otherwise feels fine other than feeling hot. [facility] Medical History (Updated 03/30/22 @ 16:[address] Suresh Briones, DO) Astrocytoma brain tumor COVID-19 Depression Diabetes HLD (hyperlipidemia) HTN (hypertension) Malignant neoplasm of parietal lobe Stroke Home Medications aspirin 81 mg chewable tablet 81 mg PO DAILY HEART HEALTH 04/15/18 [History Last Taken 03/30/22] atorvastatin 80 mg tablet 80 mg PO QHS CHOLESTEROL 04/15/18 [History Last Taken 03/29/22] gabapentin 300 mg capsule 300 mg PO QHS RESTLESS LEG SYNDROME 07/28/21 [History Last Taken 03/29/22] tramadol 50 mg tablet 50 mg PO BID PAIN 07/28/21 [History Last Taken 03/30/22] clindamycin phosphate 1 % topical solution 1 applic topical QHS ROSACEA 11/22/21 [History Last Taken 03/29/22] clopidogrel 75 mg tablet 75 mg PO DAILY BLOOD THINNER 03/30/22 [History Last Taken 03/30/22] cyclobenzaprine 10 mg tablet 10 mg PO BID MUSCLE SPASMS 03/30/22 [History Last Taken 03/30/22] lisinopril 20 mg tablet 20 mg PO DAILY BLOOD PRESSURE 03/30/22 [History Last Taken 03/30/22] magnesium hydroxide 400 mg/5 mL oral suspension (Milk of Magnesia) 30 ml PO Q24H PRN Constipation 03/30/22 [History Last Taken 03/24/22] melatonin 10 mg tablet 10 mg PO QHS INSOMNIA 03/30/22 [History Last Taken 03/29/22] mirtazapine 7.5 mg tablet 7.5 mg PO QHS 03/30/22 [History Last Taken 03/29/22] trazodone 100 mg tablet 200 mg PO QHS INSOMNIA 03/30/22 [History Last Taken 03/29/22] Allergy/AdvReac Type Severity Reaction Status Date / Time prednisone AdvReac Rash Verified 03/30/22 13:39 Family History Grandmother Diabetes Surgical History H/O brain surgery Social History (Updated 03/30/22 @ 16:[address] Suresh Briones DO) housing: intermediate Smoking Status: Never smoker ROS ROS Narrative All review of systems were negative except as mentioned above in the history of present illness and the other review of systems. Vital Signs Vital Signs Vital Signs: 03/30/22 13:34 03/30/22 13:50 03/30/22 13:37 Temperature 36.1 C L Temperature Source Temporal Pulse Rate 100 108 H Respiratory Rate 17 20 H Blood Pressure 132/56 H 125/67 H Blood Pressure Mean 81 86 Pulse Ox 94 93 Oxygen Delivery Method Room Air Room Air Room Air 03/30/22 13:57 03/30/22 14:20 03/30/22 14:50 Temperature Temperature Source Pulse Rate 111 H 115 H 111 H Respiratory Rate 20 H 18 18 Blood Pressure 125/67 H 132/87 H 128/82 H Blood Pressure Mean 86 102 97 Pulse Ox 93 97 93 Oxygen Delivery Method Room Air 03/30/22 15:20 03/30/22 15:49 Temperature Temperature Source Pulse Rate 106 H 116 H Respiratory Rate 18 20 H Blood Pressure 126/80 H 128/87 H Blood Pressure Mean 95 100 Pulse Ox 99 95 Oxygen Delivery Method Weight Weight: 152.7 kg Body Mass Index (BMI) 54.3 Physical Exam Const alert and no apparent distress Constitutional Narrative: Face is flushed. Afebrile. HEENT normocephalic and head/scalp atraumatic Eyes PERRL and EOMs intact bilaterally Neck no lymphadenopathy and supple Resp normal respiratory effort, no retractions, no use of accessory muscles and clear to auscultation bilaterally Cardio regular rate, regular rhythm, S1 normal heart sound and S2 normal heart sound GI normal to inspection, nondistended, normoactive bowel sounds, soft to palpation, non-tender and non-distended Extremity normal to inspection Neuro oriented x3 and CN's II-XII intact bilaterally Neuro Narrative: Strength is 5 out of 5 in left upper and left lower extremity and right lower extremity. 0-5 in the right upper extremity. Sensorium / Orientation: awake and alert Psych affect normal Results Lab / Micro Data Attestation: I reviewed the patient's lab results. Result Diagrams: 03/30/22 13:25 03/30/22 13:25 Labs: Laboratory Results - last 24 hr 03/30/22 13:25: WBC 5.3, RBC 4.65, Hgb 13.8, Hct 43.1, MCV 92.7, MCH 29.7, MCHC 32.0, RDW Std Deviation 42.7, RDW Coeff of [place] 12.7, Plt Count 197, MPV 9.7, Immature Gran % (Auto) 0.200, Neut % (Auto) 83.5 H, Lymph % (Auto) 7.4 L, [place] % (Auto) 7.0, Eos % (Auto) 1.5, Baso % (Auto) 0.4, Absolute Neuts (auto) 4.4, Absolute Lymphs (auto) 0.39 L, Nucleated RBC % 0 03/30/22 13:25: PT 13.3, INR 1.0, APTT 26.8 03/30/22 13:25: Sodium 139, Potassium 3.4 L, Chloride 106, Carbon Dioxide 30.0, Anion Gap 3 L, BUN 11, Creatinine 1.04 H, Estim Creat Clear Calc 56.54, Est GFR (MDRD) Af Amer 70, Est GFR (MDRD) Non-Af 58 L, BUN/Creatinine Ratio 10.6, Glucose 119 H, Calcium 9.0, Troponin I High Sens < 3 L Rhythm Strip Rhythm Strip: Sinus Tach Rate: 108 Ectopy: PVC(s) EKG Initial EKG: Attestation: I personally reviewed and interpreted this EKG as follows: Prior EKG tracings: available for review EKG Rhythm Intrepretation: Sinus Tachycardia Radiology Impression Brain CT 03/30/22 13:37 IMPRESSION: Chronic involutional changes of the brain. Stable examination. N.B. : The above Results were Read Back by Otoniel Ott MD to Que Mcconnell and understanding confirmed on 03/30/2022 14:01:57 (ET). Electronically Signed: Otoniel Ott MD at 14:05 EST , ADDENDUM: 03/30/22 1412 IMPRESSION: Chronic involutional changes of the brain. Stable examination. N.B. : The above Results were Read Back by Otoniel Ott MD to Que Mcconnell and understanding confirmed on 03/30/2022 14:01:57 (ET). Electronically Signed: Otoniel Ott MD at 14:05 EST , Chest X-Ray 03/30/22 13:37 IMPRESSION: Mild degree of increased markings in the posterior medial segment of the left lower lobe suggestive of atelectasis. Electronically Signed: Otoniel Ott MD at 14:35 EST , Head/Neck CTA 03/30/22 13:42 IMPRESSION: Minimal plaque at the origin of the right internal carotid artery. N.B. : The above Results were Read Back by Otoniel Ott MD to Que Mcconnell and understanding confirmed on 03/30/2022 14:12:35 (ET). Electronically Signed: Otoniel Ott MD at 14:13 EST , ADDENDUM: 03/30/22 1420 IMPRESSION: Minimal plaque at the origin of the right internal carotid artery. N.B. : The above Results were Read Back by Otoniel Ott MD to Que Mcconnell and understanding confirmed on 03/30/2022 14:12:35 (ET). Electronically Signed: Otoniel Ott MD at 14:13 EST , Assessment & Plan Assessment/Plan (1) Slurred speech: PLAN: Patient is currently awake and alert She denies any slurred speech though her speech is abnormal it sounds like this is more about chronic process related with her prior stroke and history of partial craniectomy perhaps. Plan is to do an MRI of the brain without contrast. If no evidence of any new stroke within no additional work-up., However, if stroke is identified then would recommend additional studies including echocardiogram and neurology consultation. PT, OT and speech therapy Aution with medications including cyclobenzaprine, tramadol and gabapentin (2) Hypokalemia: PLAN: Replace check magnesium PLAN: Plan Chronic conditions: * h/o CVA with Right sided weakness. 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 From ME, she is DNRCC. She clarified that she is not hospice. I therefore recommend DNR Comfort Care arrest no intubation. She was agreeable to that. Charges/Coding Visit Charges OBSV E&M: 85508 Initial observation care L3
[2022-03-30 17:25] LABS: Troponin-I HS 4 pg/mL (3.0-54.0)
[2022-03-30] MEDS: Potassium Chloride Oral Tablet 20 MEQ 40 MEQ PO (18:53)
[2022-03-30] MEDS: Acetaminophen 325 MG Tablet 650 MG PO (19:34)
[2022-03-30] MEDS: Ondansetron 4 MG/2 ML Vial IV (20:06)
[2022-03-30] MEDS: 0.9% Saline Lock 10 ML Syringe IV (20:07)
[2022-03-30] MEDS: Mirtazapine 15 MG Tablet 7.5 MG PO (22:25)
[2022-03-30] MEDS: Atorvastatin Calcium 80 MG Tablet PO (22:25)
[2022-03-30] MEDS: traZODone 100 MG Tablet 200 MG PO (22:25)
[2022-03-30] MEDS: cycloBENZAPRine HCl 10 MG Tablet PO (22:25)
[2022-03-30] MEDS: MELATONIN 10 MG TABLET PO (22:25)
[2022-03-30] MEDS: Gabapentin 300 MG Capsule PO (22:27)
[2022-03-30 22:47] LABS: Mucous, Urine 0 SEEN /hpf (<or=2+)
[2022-03-30 22:51] LABS: Color, Urine Yellow (Yellow); Glucose, Dipstick Normal (Normal); Ketone-Dipstick Negative (Negative); Leukocyte Esterase-Dipstick 25 /ul (Negative); Nitrite-Dipstick Negative (Negative); Occult Blood-Urine 10 /ul (Negative); Protein-Dipstick Negative (Negative); Specific Gravity, Urine 1.015 (1.002-1.030); Urine Bilirubin Dipstick Negative (Negative); Urine Clarity Sl. Cloudy (Clear); Urine Urobilinogen Normal (Normal)
[2022-03-30 23:03] LABS: Amorphous Sediment 1+ URATE; Bacteria 3+ /hpf (None Seen); Red Blood Cells-Urine 0-5 SEEN /hpf (0-5); Squamous Epithelial Cells - UA 0-5 SEEN /hpf (5-10); White Blood Cells 0-5 SEEN /hpf (0-5)
[2022-03-31] VITALS (10 sets, daily range): BP systolic 96–131; BP diastolic 77–95; PULSE 89–98; RESP 18; TEMP 36.5–37.4; O2SAT 93–97; BMI 52.2
[2022-03-31 07:06] LABS: Absolute Lymphocyte Count 0.56 X10^3/uL (0.83-4.51); Absolute Neutrophil Count 3.1 X10^3/uL (2.0-7.7); Basophil# 0.01 X10^3/uL; Basophil% 0.2 % (0-1); Eosinophil# 0.02 X10^3/uL; Eosinophils% 0.5 % (0-5); Hematocrit 40.2 % (37-47); Hemoglobin 13.4 g/dL (12.0-15.0); Lymphocyte # 0.56 X10^3/ul (0.83-4.51); Lymphocyte % 13.8 % (19-41); Mean Corp Hgb Conc 33.3 g/dL (32-36); Mean Corpuscular Hgb 30.2 pg (27.0-32.0); Mean Corpuscular Volume 90.7 fL (81-99); Mean Platelet Vol. 9.8 fl (6.2-12.0); Monocyte# 0.39 X10^3/uL; Monocyte% 9.6 % (0-10); NRBC Flagged by Analyzer 0 % (0-5); Neutrophil # 3.07 X10^3/uL (2.7-7.7); Neutrophil % 75.4 % (47-70); POSITIVE DIFFERENTIAL YES; Platelet Count 167 K/mm3 (150-450); RBC Distribution Width CV 12.9 % (11.6-14.6); RBC Distribution Width SD 43.2 fl (35.1-43.9); Red Blood Count 4.43 M/mm3 (4.2-5.4); White Blood Count 4.1 K/mm3 (4.4-11.0)
[2022-03-31 07:13] LABS: Differential Indicated SCAN CRITERIA MET
[2022-03-31 07:38] LABS: Anion Gap 6 (5-15); BUN 11 mg/dL (7-18); BUN/Creat Ratio 13.9 RATIO (10-20); Calcium,Total 8.8 mg/dL (8.5-10.1); Chloride 107 mmol/L (98-107); Cholesterol 134 mg/dL (200); Creatinine, Serum 0.79 mg/dL (0.55-1.02); EST Glomerular Filtration Rate 80 mL/min (>60); Est Glom Filt Rate - Afr Amer 96 mL/min (>60); Estimated Creatinine Clearance 74.44 ml/min; Glucose 101 mg/dL (74-106); High Density Lipoprotein 44 mg/dL; Magnesium 2.1 mg/dL (1.6-2.6); Sodium Level 141 mmol/L (136-145); Triglycerides 74 mg/dL; Very Low Density Lipoprotein 15 mg/dL (5-40)
[2022-03-31 07:41] LABS: Smudge Cells 4.1
--- NOTE | 2022-03-31 08:53 | MRI_ITS ---
HISTORY: Slurred speech, history of prior stroke and astrocytoma. TECHNIQUE: Multiplanar and multisequence MR images of the brain were obtained without contrast. 291 images. COMPARISON: CT prior day, MRI 04/14/2018. FINDINGS: BRAIN PARENCHYMA: Chronic mild left periventricular infarct. Chronic moderate left parieto-occipital cystic encephalomalacia with surrounding gliosis, serpiginous mineralization, and old hemorrhage/dystrophic calcification. Chronic bilateral cerebral white matter changes. No abnormal focus of restricted diffusion. No acute intracranial hemorrhage identified. CSF SPACES: Generalized volume loss. No significant midline shift or other mass effect.No extra-axial fluid collection. VASCULAR SYSTEM: Major intracranial flow voids are maintained. PARANASAL SINUSES AND MASTOID AIR CELLS: Mild maxillary sinus mucosal thickening. ORBITS: Symmetric contents. MRI/Brain without Contrast IMPRESSION: No evidence for acute infarct. Old left periventricular infarct. Chronic left occipitoparietal cystic encephalomalacia with calcification. Chronic involutional and white matter changes. Electronically Signed: Adenike Ureña MD at 9:45 EST ,
[2022-03-31] MEDS: Clopidogrel Bisulfate 75 MG Tablet PO (09:48)
[2022-03-31] MEDS: Lisinopril 20 MG Tablet PO (09:48)
[2022-03-31] MEDS: Aspirin 81 MG TAB.CHEW PO (09:48)
[2022-03-31] MEDS: cycloBENZAPRine HCl 10 MG Tablet PO (09:48)
--- NOTE | 2022-03-31 10:21 | PCM.TXEXTCAR ---
Diet Diet Order/Speech Therapy: 03/30/22 17:44 Diet: Cardiac - Heart Healthy Food consistency:: Regular Liquid Consistency:: Regular/Thin Is pt able to select menu?: Yes Routine Orders/Code Status Suppository Type: Dulcolax 10mg Suppository Frequency: Daily PRN Code Status: DNRCC-A Therapies Weight Bearing: Weight bearing as tolerated Extremity Affected:: Bilateral Lower Physical Therapy: Eval and Treat Occupational Therapy: Eval and Treat Speech Therapy: Eval and Treat Problem/Diagnosis (1) Slurred speech: Status: Acute Code(s): R47.81 - Slurred speech (2) Hypokalemia: Status: Acute Code(s): E87.6 - Hypokalemia Allergies/Procedures Done in Hospital Allergies prednisone Adverse Reaction (Verified 03/30/22 13:39) Rash Type of Care/Length of Stay Estimated LOS: Convalescent Care Less Than 30 days Type of Care Needed: Skilled Rehab Potential: Good Prognosis: Good Additional Orders/Day of Discharge Day of Discharge: 03/31/22 Dietary and Speech Recommendations Dietitian Recommendations/Changes: continue cardiac diet as tolerated- texture/consistency modficiations per [employer]. Consider addition of carbohydrate controlled diet to current diet if evidenced of hyperglycemia. Discharge Plan Admission Admit Date/Time: 03/30/22 16:21 Primary Reason for Your Visit: Chronic ischemic infarct. No new cortical ischemia/infarct. Attending Provider: Kevyn Kennedy Primary Care Provider: Lefty Paula Consulting Providers: Suresh Briones Discharge Orders/Prescriptions Prescriptions: Continued gabapentin 300 mg capsule 300 mg PO QHS tramadol 50 mg tablet 50 mg PO BID clindamycin phosphate 1 % solution 1 applic topical QHS atorvastatin 80 MG tablet 80 mg PO QHS aspirin 81 MG tablet,chewable 81 mg PO DAILY cyclobenzaprine 10 mg Tablet 10 mg PO BID lisinopril 20 mg Tablet 20 mg PO DAILY magnesium hydroxide [Milk of Magnesia] 400 mg/5 mL Suspension 30 ml PO Q24H PRN (Reason: Constipation) trazodone 100 mg Tablet 200 mg PO QHS mirtazapine 7.5 mg Tablet 7.5 mg PO QHS melatonin 10 mg Tablet 10 mg PO QHS clopidogrel 75 MG tablet 75 mg PO DAILY Referrals / Follow Up: Lefty Paula DO [Primary Care Provider] -
--- NOTE | 2022-03-31 10:24 | CASEMGMT ---
Patient is from [place] [employer]. SW sent updates to [place] via [facility]. Patient does not need a pre-cert to return to [facility] [place]. Plan: d/c back to [place] under skilled level of care. Val CAROLINA
--- NOTE | 2022-03-31 12:57 | PCM.DC.SUM ---
Providers Date of Admission: 03/30/22 Date of Discharge: 03/31/22 Primary Care Physician: Dr. Lefty Paula DO Reason For Visit: SLURRED SPEECH Diagnosis Discharge Diagnosis (1) Slurred speech: Status: Acute Code(s): R47.81 - Slurred speech (2) Hypokalemia: Status: Acute Code(s): E87.6 - Hypokalemia Plan 56-year-old female was admitted with slurred speech, language deficit with concern of new stroke on the chronic stroke. Patient had stroke in the past with right-sided weakness and language deficit.She was further admitted in PCU. 1. Old ischemic infarct/stroke, new brain ischemia/infarct ruled out: Patient was admitted in PCU. CTA head and neck shows minimal plaque at origin of right ICA. MRI brain was done. It was reported as chronic old left periventricular, occipital infarct with enkephalin malacia and calcification. No evidence for new infarct. Patient was admitted as per stroke protocol with PT OT and speech therapy Elison. BP and glucose control as per stroke guidelines. Fasting profile within normal limit. Patient is already on aspirin, Plavix and high intensity statin atorvastatin 80 mg daily at bedtime and continued.UA is negative. Patient did not have burning micturition. BP and glucose under good control under good control. 2. Hypokalemia: Potassium replaced. Repeat potassium normal. Serum magnesium level normal. 3. Chronic conditions include history of astrocytoma, CVA with right-sided weakness: Patient had history of remote resection, reportedly in remission. Discharge medication reconciliation done. Discharge follow-up instructions completed. Discharge process discussed with the patient and all questions were answered to patient's satisfaction. Total time spent, exact 35 minutes on discharge meds reconciliation, examination, coordination of care with nurses and ancillary staff, review of imaging and blood test and discussion with the patient on follow-up instructions. Clinical Impression(s) from Imaging Studies Brain CT 03/30/22 13:37 IMPRESSION: Chronic involutional changes of the brain. Stable examination. N.B. : The above Results were Read Back by Otoniel Ott MD to Que Mcconnell and understanding confirmed on 03/30/2022 14:01:57 (ET). Electronically Signed: Otoniel Ott MD at 14:05 EST , ADDENDUM: 03/30/22 1412 IMPRESSION: Chronic involutional changes of the brain. Stable examination. N.B. : The above Results were Read Back by Otoniel Ott MD to Que Mcconnell and understanding confirmed on 03/30/2022 14:01:57 (ET). Electronically Signed: Otoniel Ott MD at 14:05 EST , Chest X-Ray 03/30/22 13:37 IMPRESSION: Mild degree of increased markings in the posterior medial segment of the left lower lobe suggestive of atelectasis. Electronically Signed: Otoniel Ott MD at 14:35 EST , Head/Neck CTA 03/30/22 13:42 IMPRESSION: Minimal plaque at the origin of the right internal carotid artery. N.B. : The above Results were Read Back by Otoniel Ott MD to Que Mcconnell and understanding confirmed on 03/30/2022 14:12:35 (ET). Electronically Signed: Otoniel Ott MD at 14:13 EST , ADDENDUM: 03/30/22 1420 IMPRESSION: Minimal plaque at the origin of the right internal carotid artery. N.B. : The above Results were Read Back by Otoniel Ott MD to Que Mcconnell and understanding confirmed on 03/30/2022 14:12:35 (ET). Electronically Signed: Otoniel Ott MD at 14:13 EST , Brain MRI 03/31/22 08:53 IMPRESSION: No evidence for acute infarct. Old left periventricular infarct. Chronic left occipitoparietal cystic encephalomalacia with calcification. Chronic involutional and white matter changes. Electronically Signed: Adenike Ureña MD at 9:45 EST , Medications at Discharge Home Medications aspirin 81 mg chewable tablet 81 mg PO DAILY HEART HEALTH 04/15/18 atorvastatin 80 mg tablet 80 mg PO QHS CHOLESTEROL 04/15/18 gabapentin 300 mg capsule 300 mg PO QHS RESTLESS LEG SYNDROME 07/28/21 tramadol 50 mg tablet 50 mg PO BID PAIN 07/28/21 clindamycin phosphate 1 % topical solution 1 applic topical QHS ROSACEA 11/22/21 clopidogrel 75 mg tablet 75 mg PO DAILY BLOOD THINNER 03/30/22 cyclobenzaprine 10 mg tablet 10 mg PO BID MUSCLE SPASMS 03/30/22 lisinopril 20 mg tablet 20 mg PO DAILY BLOOD PRESSURE 03/30/22 magnesium hydroxide 400 mg/5 mL oral suspension (Milk of Magnesia) 30 ml PO Q24H PRN Constipation 03/30/22 melatonin 10 mg tablet 10 mg PO QHS INSOMNIA 03/30/22 mirtazapine 7.5 mg tablet 7.5 mg PO QHS 03/30/22 trazodone 100 mg tablet 200 mg PO QHS INSOMNIA 03/30/22 Physical Exam Narrative Seen and examined. 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 Chronic RUE weakness/plegia. Moderate RLE paresis Physical exam General: Alert, Oriented x3, Cooperative, morbid obesity BMI 52.3 kg/m? HEENT: Atraumatic, PERRLA, EOMI, Normocephalic Oral: No Gingival or Mucosal Lesions/ Ulcerations Neck: Supple, No JVD, Negative Carotid Bruits Lungs: Air entry diminished in bilateral lung bases. No crepitation/rhonchi Cardiovascular: Regular rate, Regular Rhythm, Normal S1, Normal S2, No murmurs Abdomen: Bowel Sounds Present, Soft, Non Tender, Non-Distended : No renal angle tenderness. No suprapubic tenderness. Extremities: No edema, Capillary Refill Less than 3 Seconds Skin: No rashes, No breakdown Musculoskeletal: RUE complete paralysis, 2/5 with contracture at shoulder and elbow joints. RLE 4/5. LUE and LLE 5/5. Neurological: Chronic facial droop., DTR 2+/4, dysarthria/moderate language deficit slurring. No dysphagia. Psych/Mental Status: Flat affect. Weight / BMI Weight Weight: 324 lb 1.272 oz Body Mass Index (BMI) 52.2 ABG / Lab / Microbiology Data Result Diagrams: 03/31/22 06:00 03/31/22 06:00 Laboratory: Laboratory Results - last 24 hr 03/30/22 13:25: WBC 5.3, RBC 4.65, Hgb 13.8, Hct 43.1, MCV 92.7, MCH 29.7, MCHC 32.0, RDW Std Deviation 42.7, RDW Coeff of [place] 12.7, Plt Count 197, MPV 9.7, Immature Gran % (Auto) 0.200, Neut % (Auto) 83.5 H, Lymph % (Auto) 7.4 L, [place] % (Auto) 7.0, Eos % (Auto) 1.5, Baso % (Auto) 0.4, Absolute Neuts (auto) 4.4, Absolute Lymphs (auto) 0.39 L, Nucleated RBC % 0 03/30/22 13:25: PT 13.3, INR 1.0, APTT 26.8 03/30/22 13:25: Sodium 139, Potassium 3.4 L, Chloride 106, Carbon Dioxide 30.0, Anion Gap 3 L, BUN 11, Creatinine 1.04 H, Estim Creat Clear Calc 56.54, Est GFR (MDRD) Af Amer 70, Est GFR (MDRD) Non-Af 58 L, BUN/Creatinine Ratio 10.6, Glucose 119 H, Calcium 9.0, Troponin I High Sens < 3 L 03/30/22 17:00: Troponin I High Sens 4 03/30/22 22:40: Urine Color Yellow, Urine Clarity Sl. Cloudy, Urine pH 6.0, Ur Specific [place] 1.015, Urine Protein Negative, Urine Glucose (UA) Normal, Urine Ketones Negative, Urine Occult Blood 10 H, Urine Nitrite Negative, Urine Bilirubin Negative, Urine Urobilinogen Normal, Ur Leukocyte Esterase 25 H, Urine RBC 0-5 SEEN, Urine WBC 0-5 SEEN, Ur Squamous Epith Cells 0-5 SEEN, Amorphous Sediment 1+ URATE, Urine Bacteria 3+, Urine Mucus 0 SEEN 03/31/22 06:00: WBC 4.1 L, RBC 4.43, Hgb 13.4, Hct 40.2, MCV 90.7, MCH 30.2, MCHC 33.3, RDW Std Deviation 43.2, RDW Coeff of [place] 12.9, Plt Count 167, MPV 9.8, Immature Gran % (Auto) 0.500, Neut % (Auto) 75.4 H, Lymph % (Auto) 13.8 L, [place] % (Auto) 9.6, Eos % (Auto) 0.5, Baso % (Auto) 0.2, Absolute Neuts (auto) 3.1, Absolute Lymphs (auto) 0.56 L, Nucleated RBC % 0, Diff Path Review May foll, Smudge Cells 4.1 03/31/22 06:00: Sodium 141, Potassium 4.0, Chloride 107, Carbon Dioxide 28.0, Anion Gap 6, BUN 11, Creatinine 0.79, Estim Creat Clear Calc 74.44, Est GFR (MDRD) Af Amer 96, Est GFR (MDRD) Non-Af 80, BUN/Creatinine Ratio 13.9, Glucose 101, Calcium 8.8, Magnesium 2.1, Triglycerides 74, Cholesterol 134, LDL Cholesterol 75, VLDL Cholesterol 15, HDL Cholesterol 44 Radiography Diagnostic Testing: Radiology Impression Brain CT 03/30/22 13:37 IMPRESSION: Chronic involutional changes of the brain. Stable examination. N.B. : The above Results were Read Back by Otoniel Ott MD to Que Mcconnell and understanding confirmed on 03/30/2022 14:01:57 (ET). Electronically Signed: Otoniel Ott MD at 14:05 EST , ADDENDUM: 03/30/22 1412 IMPRESSION: Chronic involutional changes of the brain. Stable examination. N.B. : The above Results were Read Back by Otoniel Ott MD to Que Mcconnell and understanding confirmed on 03/30/2022 14:01:57 (ET). Electronically Signed: Otoniel Ott MD at 14:05 EST , Chest X-Ray 03/30/22 13:37 IMPRESSION: Mild degree of increased markings in the posterior medial segment of the left lower lobe suggestive of atelectasis. Electronically Signed: Otoniel Ott MD at 14:35 EST Reading Location ID and State: [id number] / [employer] , Service support , Head/Neck CTA 03/30/22 13:42 IMPRESSION: Minimal plaque at the origin of the right internal carotid artery. N.B. : The above Results were Read Back by Otoniel Ott MD to Que Mcconnell and understanding confirmed on 03/30/2022 14:12:35 (ET). Electronically Signed: Otoniel Ott MD at 14:13 EST , ADDENDUM: 03/30/22 1420 IMPRESSION: Minimal plaque at the origin of the right internal carotid artery. N.B. : The above Results were Read Back by Otoniel Ott MD to Que Mcconnell and understanding confirmed on 03/30/2022 14:12:35 (ET). Electronically Signed: Otoniel Ott MD at 14:13 EST , Brain MRI 03/31/22 08:53 IMPRESSION: No evidence for acute infarct. Old left periventricular infarct. Chronic left occipitoparietal cystic encephalomalacia with calcification. Chronic involutional and white matter changes. Electronically Signed: Adenike Ureña MD at 9:45 EST Reading Location ID and State: [facility] / [place] Tel , Service support , Meaningful Use Info Meaningful Use Diagnoses (Choose all that apply): None applicable Discharge Plan Admission Admit Date/Time: 03/30/22 16:21 Primary Reason for Your Visit: Chronic ischemic infarct. No new cortical ischemia/infarct. Attending Provider: Kevyn Kennedy Primary Care Provider: Lefty Paula Consulting Providers: Suresh Briones Discharge Orders/Prescriptions Prescriptions: Continued gabapentin 300 mg capsule 300 mg PO QHS tramadol 50 mg tablet 50 mg PO BID clindamycin phosphate 1 % solution 1 applic topical QHS atorvastatin 80 MG tablet 80 mg PO QHS aspirin 81 MG tablet,chewable 81 mg PO DAILY cyclobenzaprine 10 mg Tablet 10 mg PO BID lisinopril 20 mg Tablet 20 mg PO DAILY magnesium hydroxide [Milk of Magnesia] 400 mg/5 mL Suspension 30 ml PO Q24H PRN (Reason: Constipation) trazodone 100 mg Tablet 200 mg PO QHS mirtazapine 7.5 mg Tablet 7.5 mg PO QHS melatonin 10 mg Tablet 10 mg PO QHS clopidogrel 75 MG tablet 75 mg PO DAILY Referrals / Follow Up: Lefty Paula DO [Primary Care Provider] - Disposition Discharge Orders: Discharge Patient (Routine); Ordered 03/31/22 Ordered By: Dr. Kevyn Kennedy Charges/Coding Visit Charges Inpatient E&M: 67260 Disch Hosp
--- NOTE | 2022-03-31 13:42 | CASEMGMT ---
CHRISTO sent d/c orders to B[facility] at [place] via [facility]. [facility] would like PT/OT evaluations. CHRISTO will await their evals before sending patient back. Plan: d/c back to [place] under skilled level of care. Val CAROLINA
[2022-03-31 14:03] LABS: Pathologist Review Reviewed
--- NOTE | 2022-03-31 16:04 | CASEMGMT ---
SW arranged for patient to get picked up at 6p via [facility]. 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 Plan: d/c back to [facility] under skilled level of care. Physicians transported. Val CAROLINA
--- NOTE | 2022-03-31 17:29 | NURSING ---
Report called to [facility].
== END 2022-03-31 12:56 | disposition skilled nursing facility (03) ==
LOC: ED 16:15 → PCU 16:44
PROVIDERS: Emergency Provider Emergency Medicine; PCP Preventive Medicine Occupational Medicine; Visit Provider Internal Medicine
DX: R47.81 Slurred speech (principal); I69.351 Hemiplegia and hemiparesis following cerebral infarction affecting right dominant side; E11.9 Type 2 diabetes mellitus without complications; E87.6 Hypokalemia; E78.5 Hyperlipidemia, unspecified; Z86.16 Personal history of COVID-19; I10 Essential (primary) hypertension; Z79.02 Long term (current) use of antithrombotics/antiplatelets; Z79.82 Long term (current) use of aspirin; Z79.899 Other long term (current) drug therapy; R29.709 NIHSS score 9
CPT/HCPCS: 36415; 70450; 70496; 70498; 70551; 71045; 80048; 80061; 81001; 83735; 84484; 85025; 85610; 85730; 87077; 87086; 87088; 87186; 87426; 92523; 93005; 94762; 96374; 97162; 97166; 97802; 99218; 99285; Q9967; A4216; G0378; J2405

== ENCOUNTER 2022-05-22 17:07 | Emergency (ER) | payer MEDICARE, MEDICAID, SELFPAY ==
[2022-05-22 17:08] VITALS: BP 161/96; PULSE 88; RESP 18; TEMP 37.5; O2SAT 96; BMI 53.9
--- NOTE | 2022-05-22 17:28 | EKG12_ITS ---
Test Reason : Blood Pressure : / mmHG Vent. Rate : 088 BPM Atrial Rate : 088 BPM P-R Int : 154 ms QRS Dur : 106 ms QT Int : 402 ms P-R-T Axes : 033 000 027 degrees QTc Int : 486 ms Sinus rhythm with frequent Premature ventricular complexes Prolonged QT Abnormal ECG Confirmed by BRYANT SOLO, JONNY ([id number]), book or script editor LIZZIE CORONEL ([id number]) on 05/23/2022 10:18:56 AM Referred By: Confirmed By:JONNY HURTADO MD
--- NOTE | 2022-05-22 17:30 | EDS_ITS ---
HPI HPI - Fall History of Present Illness Chief Complaint: Fall Narrative Narrative: Patient lives in an ECF secondary to a stroke as well as brain tumor, she had a fall 2 days ago hit the back of her head and now she has some slurred speech although she does have chronic slurred speech. Per nurses who have known her she is at baseline. Patient is complaining of a headache. PFSH PFSH Medical History Astrocytoma brain tumor COVID-19 Depression Diabetes HLD (hyperlipidemia) HTN (hypertension) Malignant neoplasm of parietal lobe Stroke Home Medications aspirin 81 mg chewable tablet 81 mg PO DAILY HEART HEALTH 04/15/18 [History Last Taken 03/30/22] atorvastatin 80 mg tablet 80 mg PO QHS CHOLESTEROL 04/15/18 [History Last Taken 03/29/22] gabapentin 300 mg capsule 300 mg PO QHS RESTLESS LEG SYNDROME 07/28/21 [History Last Taken 03/29/22] tramadol 50 mg tablet 50 mg PO BID PAIN 07/28/21 [History Last Taken 03/30/22] clindamycin phosphate 1 % topical solution 1 applic topical QHS ROSACEA 11/22/21 [History Last Taken 03/29/22] clopidogrel 75 mg tablet 75 mg PO DAILY BLOOD THINNER 03/30/22 [History Last Taken 03/30/22] cyclobenzaprine 10 mg tablet 10 mg PO BID MUSCLE SPASMS 03/30/22 [History Last Taken 03/30/22] lisinopril 20 mg tablet 20 mg PO DAILY BLOOD PRESSURE 03/30/22 [History Last Taken 03/30/22] magnesium hydroxide 400 mg/5 mL oral suspension (Milk of Magnesia) 30 ml PO Q24H PRN Constipation 03/30/22 [History Last Taken 03/24/22] melatonin 10 mg tablet 10 mg PO QHS INSOMNIA 03/30/22 [History Last Taken 03/29/22] mirtazapine 7.5 mg tablet 7.5 mg PO QHS 03/30/22 [History Last Taken 03/29/22] trazodone 100 mg tablet 200 mg PO QHS INSOMNIA 03/30/22 [History Last Taken 03/29/22] ketoconazole 2 % topical cream applic topical 05/22/22 [History Last Taken Unknown] menthol 0.44 %-zinc oxide 20.6 % topical ointment (Calmoseptine) topical 05/22/22 [History Last Taken Unknown] Allergy/AdvReac Type Severity Reaction Status Date / Time prednisone AdvReac Rash Verified 03/30/22 13:39 Family History Grandmother Diabetes Surgical History H/O brain surgery Social History housing: snf Smoking Status: Never smoker ROS ROS ED ROS Narrative Review of systems: All systems negative except as indicated General: No fever Eyes: No visual changes ENT: Chronic slurred speech Neck: No neck pain Cardiovascular: No chest pain Respiratory: No shortness of breath or cough Gastrointestinal: No abdominal pain. Endorses some nausea but no vomiting Genitourinary: No dysuria Musculoskeletal: Denies myalgias, no extremity pain or trauma Skin: No rash Neurological: Headache. Chronic lower extremity weakness on the right, no new focal deficits Psych: No recent behavioral changes EXAM Physical Exam Narrative Exam Narrative: Physical exam General: Well nourished, Well developed, No Acute Distress Head: Normocephalic, Atraumatic Eyes: Conjunctiva not pale. Pupils are 3 mm equal and reactive. ENT: Moist mucous membranes Neck: Supple, Nontender, No lymphadenopathy Cardiovascular: Regular rate, Regular rhythm Respiratory: No distress, CTA bilaterally Abdomen: Soft, Nontender, Nondistended Back: Nontender, Normal Inspection. Negative for: CVA tenderness Extremities: Nontender, No edema, brace of the right foot for foot drop Skin: Normal color, No rash Neurological: Patient is oriented. Lower extremity weakness as above. Const Vital Signs: 05/22/22 17:08 Temperature 99.5 F H Temperature Source Temporal Pulse Rate 88 Respiratory Rate 18 Blood Pressure 161/96 H Blood Pressure Mean 117 Pulse Ox 96 Oxygen Delivery Method Room Air MDM MDM MDM Narrative Medical decision making narrative: A. Problems addressed ( does not have to be diagnoses) Fall, head injury with possible brain injury including intracranial bleed. Generalized weakness, patient has an unremarkable ED work-up. I believe she is safe for discharge she is going to snf where she can be monitored. B. Amount and/or complexity of the data 1. Any 3 I reviewed the ECF paperwork, CBC and CMP and urinalysis were interpreted by me 2. Independent interpretation of test Telemetry: Sinus rhythm on the monitor with frequent PVCs. C. Risk of complications and/or morbidity Differential diagnosis: See above I have thought about admitting the patient, however she is going to an ECF where can she be observed well. Lab Data Labs: Laboratory Results - last 24 hr 05/22/22 05/22/22 05/22/22 17:40 17:45 17:45 WBC 9.1 RBC 4.45 Hgb 13.4 Hct 40.9 MCV 91.9 MCH 30.1 MCHC 32.8 RDW Std Deviation 42.7 RDW Coeff of [place] 12.7 Plt Count 266 MPV 9.6 Immature Gran % (Auto) 0.300 Neut % (Auto) 68.3 Lymph % (Auto) 21.6 [place] % (Auto) 6.1 Eos % (Auto) 3.2 Baso % (Auto) 0.5 Absolute Neuts (auto) 6.2 Absolute Lymphs (auto) 1.97 Nucleated RBC % 0 Sodium 140 Potassium 4.1 Chloride 108 H Carbon Dioxide 25.0 Anion Gap 7 BUN 15 Creatinine 1.10 H Estim Creat Clear Calc 53.46 Est GFR (MDRD) Af Amer 66 Est GFR (MDRD) Non-Af 54 L BUN/Creatinine Ratio 13.6 Glucose 123 H Calcium 9.0 Total Bilirubin 0.40 AST 29 ALT 58 H Alkaline Phosphatase 117 Total Protein 7.6 Albumin 3.5 Globulin 4.1 Albumin/Globulin Ratio 0.9 Urine Color Yellow Urine Clarity Clear Urine pH 6.0 Ur Specific [place] 1.015 Urine Protein Negative Urine Glucose (UA) Normal Urine Ketones Negative Urine Occult Blood Negative Urine Nitrite Negative Urine Bilirubin Negative Urine Urobilinogen Normal Ur Leukocyte Esterase 25 H Urine RBC 0 SEEN Urine WBC 0-5 SEEN Ur Squamous Epith Cells 0-5 SEEN Urine Bacteria RARE Urine Mucus 0 SEEN Radiography Diagnostic Testing: Clinical Impression(s) from Imaging Studies Brain CT 05/22/22 18:00 IMPRESSION: There are no acute findings. Chronic involutional changes of the brain. Electronically Signed: Alexis Castellano MD at 18:56 EST Reading Location ID and State: [facility] / [place] , Service support , Cervical Spine CT 05/22/22 18:00 IMPRESSION: Degenerative changes of the cervical spine. There is mild straightening of the normal cervical lordosis. This can suggest neck strain. Electronically Signed: Alexis Castellano MD at 18:51 EST Reading Location ID and State: [facility][note 3] / [place] , Service support , EKG Initial EKG: Comments: Sinus rhythm with a rate of 88. Normal [place] interval. QTc slightly elevated for age 6. No ischemic changes. Interpreted by emergency doctor. Discharge Plan Triage Chief Complaint: Fall ED Provider: Michele León Dx/Rx/DC Orders Clinical Impression: Concussion without loss of consciousness, Fall, Weakness Instructions: After a Concussion Prescriptions: No Action gabapentin 300 mg capsule 300 mg PO QHS tramadol 50 mg tablet 50 mg PO BID clindamycin phosphate 1 % solution 1 applic topical QHS atorvastatin 80 MG tablet 80 mg PO QHS aspirin 81 MG tablet,chewable 81 mg PO DAILY cyclobenzaprine 10 mg Tablet 10 mg PO BID lisinopril 20 mg Tablet 20 mg PO DAILY magnesium hydroxide [Milk of Magnesia] 400 mg/5 mL Suspension 30 ml PO Q24H PRN (Reason: Constipation) trazodone 100 mg Tablet 200 mg PO QHS mirtazapine 7.5 mg Tablet 7.5 mg PO QHS melatonin 10 mg Tablet 10 mg PO QHS clopidogrel 75 MG tablet 75 mg PO DAILY ketoconazole 2 % cream TOPICAL menthol-zinc oxide [Calmoseptine] 0.44-20.6 % Ointment TOPICAL Primary Care Provider: Michele Barney Referrals: Lefty Paula DO [Non-Staff] - Disposition [facility]
[2022-05-22 17:57] LABS: Absolute Lymphocyte Count 1.97 X10^3/uL (0.83-4.51); Absolute Neutrophil Count 6.2 X10^3/uL (2.0-7.7); Basophil# 0.05 X10^3/uL; Basophil% 0.5 % (0-1); Eosinophil# 0.29 X10^3/uL; Eosinophils% 3.2 % (0-5); Hematocrit 40.9 % (37-47); Hemoglobin 13.4 g/dL (12.0-15.0); Lymphocyte # 1.97 X10^3/ul (0.83-4.51); Lymphocyte % 21.6 % (19-41); Mean Corp Hgb Conc 32.8 g/dL (32-36); Mean Corpuscular Hgb 30.1 pg (27.0-32.0); Mean Corpuscular Volume 91.9 fL (81-99); Mean Platelet Vol. 9.6 fl (6.2-12.0); Monocyte# 0.56 X10^3/uL; Monocyte% 6.1 % (0-10); NRBC Flagged by Analyzer 0 % (0-5); Neutrophil # 6.21 X10^3/uL (2.7-7.7); Neutrophil % 68.3 % (47-70); Platelet Count 266 K/mm3 (150-450); RBC Distribution Width CV 12.7 % (11.6-14.6); RBC Distribution Width SD 42.7 fl (35.1-43.9); Red Blood Count 4.45 M/mm3 (4.2-5.4); White Blood Count 9.1 K/mm3 (4.4-11.0)
--- NOTE | 2022-05-22 18:00 | CT_ITS ---
STUDY: CT BRAIN WITHOUT CONTRAST REASON FOR EXAM: Female, 56 years old. trauma Individualized dose optimization techniques were used for this CT. TECHNIQUE: Transaxial CT imaging of the brain was performed without administration of intravenous contrast material. COMPARISON: 03.30.22 FINDINGS: There are calcifications around the carotid artery. These are noted in the cavernous carotid arteries. Normal soft tissues. Old left occipital lobe infarct. Left craniotomy. Stable heterogeneous sclerosis of the skull. There is mild cerebral atrophy with widening of the extra-axial spaces and ventricular dilatation. There are areas of decreased attenuation within the white matter tracts of the supratentorial brain, consistent with microvascular disease changes. Normal basal ganglia and thalami. Normal brainstem. There is mild cerebellar atrophy. Stable encephalomalacia in the posterior aspect of the left parietal occipital lobe. Once again, there is evidence of a parenchymal linear and heterogeneous calcification in the posterior parietal lobes and occipital lobes bilaterally. This is slightly worse on the left side. This may represent changes secondary to venous vascular malformation or AVMs. There are small punctate calcifications of the basal ganglia which are seen in the aging brain as a normal variant. Stable lacunar infarct in the body of the left caudate nucleus. Stable linear calcifications in the left cerebellar hemisphere. There is no intracranial hemorrhage. There are no findings of an acute ischemic infarction. Degenerative changes of the mandibular condyles. ASPECTS Score for Acute Strokes: 01/16 CT/Brain/Head without Contrast IMPRESSION: There are no acute findings. Chronic involutional changes of the brain. Electronically Signed: Alexis Castellano MD at 18:56 EST ,
--- NOTE | 2022-05-22 18:00 | CT_ITS ---
EXAM: CT SPINE - CERVICAL WITHOUT IV REASON FOR EXAM: Female, 56 years old. NECK PAIN trauma HISTORY: NECK PAIN trauma Individualized dose optimization techniques were used for this CT. TECHNIQUE: Multiplanar images were obtained of the cervical spine. IV contrast was not utilized. COMPARISON: None. FINDINGS: The vertebral bodies do maintain their height. The odontoid process is intact. No pre-vertebral soft tissue swelling is seen. The intravertebral disc height is lost. There are scattered lymph nodes in the neck. There are degenerative changes of the osseous structures. There is bilateral facet arthropathy. There are scattered levels of foraminal stenosis. There are vascular calcifications. There is mild straightening of the normal cervical lordosis. This can suggest neck strain. CT/Spine Cervical without Contras IMPRESSION: Degenerative changes of the cervical spine. There is mild straightening of the normal cervical lordosis. This can suggest neck strain. Electronically Signed: Alexis Castellano MD at 18:51 EST ,
[2022-05-22 18:05] LABS: Mucous, Urine 0 SEEN /hpf (<or=2+); Red Blood Cells-Urine 0 SEEN /hpf (0-5)
[2022-05-22 18:18] LABS: ALB/GLOB Ratio 0.9 RATIO (0.9-2.4); AST(SGOT) 29 U/L (15-37); Alanine Aminotransfer ALT/SGPT 58 U/L (13-56); Albumin, Serum 3.5 g/dL (3.2-5.0); Alkaline Phosphatase 117 U/L (45-117); Anion Gap 7 (5-15); BUN 15 mg/dL (7-18); BUN/Creat Ratio 13.6 RATIO (10-20); Chloride 108 mmol/L (98-107); EST Glomerular Filtration Rate 54 mL/min (>60); Est Glom Filt Rate - Afr Amer 66 mL/min (>60); Estimated Creatinine Clearance 53.46 ml/min; Globulin 4.1 g/dL (2.2-4.2); Glucose 123 mg/dL (74-106); Potassium 4.1 mmol/L (3.5-5.1); Protein, Total 7.6 g/dL (6.4-8.2); Sodium Level 140 mmol/L (136-145)
[2022-05-22 18:26] LABS: Color, Urine Yellow (Yellow); Glucose, Dipstick Normal (Normal); Ketone-Dipstick Negative (Negative); Leukocyte Esterase-Dipstick 25 /ul (Negative); Nitrite-Dipstick Negative (Negative); Occult Blood-Urine Negative /ul (Negative); Protein-Dipstick Negative (Negative); Specific Gravity, Urine 1.015 (1.002-1.030); Urine Bilirubin Dipstick Negative (Negative); Urine Clarity Clear (Clear); Urine Urobilinogen Normal (Normal)
[2022-05-22 18:39] LABS: Bacteria RARE /hpf (None Seen); Squamous Epithelial Cells - UA 0-5 SEEN /hpf (5-10); White Blood Cells 0-5 SEEN /hpf (0-5)
--- NOTE | 2022-05-22 21:57 | ED.RN ---
PATIENT CONTINUES TO HIT CALL LIGHT ASKING FOR TEST RESULTS STATING NO ONE HAS UPDATED HER. THIS RN INFORMED HER HER BLOOD WORK, URINE AND CT SCAN OF HEAD ALL CAME BACK NORMAL
== END 2022-05-22 22:41 | disposition skilled nursing facility (03) ==
PROVIDERS: Emergency Provider Emergency Medicine; PCP Family Medicine; Visit Provider Emergency Medicine
DX: S06.0X0A Concussion without loss of consciousness, initial encounter (principal); E11.9 Type 2 diabetes mellitus without complications; R53.1 Weakness; E78.5 Hyperlipidemia, unspecified; R47.81 Slurred speech; I10 Essential (primary) hypertension; Z86.73 Personal history of transient ischemic attack (TIA), and cerebral infarction without residual deficits; W19.XXXA Unspecified fall, initial encounter
CPT/HCPCS: 70450; 72125; 80053; 81001; 85025; 93005; 99283; A4216

== ENCOUNTER 2023-08-16 11:52 | Emergency (ER) | payer MEDICARE, MEDICAID, SELFPAY ==
[2023-08-16 12:01] VITALS: BP 125/83; PULSE 65; RESP 17; TEMP 36.6; O2SAT 98; BMI 49.6
[2023-08-16 12:07] VITALS: BMI 49.6
--- NOTE | 2023-08-16 12:12 | EDS_ITS ---
HPI History of Present Illness Chief Complaint: Neuro S/Sx Informant: patient, EMS and SNF Narrative Narrative: Patient presents via EMS after a fall out of bed around 1130 at the [facility]. She has a history of prior stroke and has hemiparesis. She has been more confused and complaining of headache and facial pain since her fall. I do not see anticoagulants on her medication list. Patient is able to tell me her name but does not know where she is. She is able to move both legs as well as her left arm to command. Although she has complained of headache to nursing staff she denies headache to me. [facility] Medical History Astrocytoma brain tumor COVID-19 Depression Diabetes HLD (hyperlipidemia) HTN (hypertension) Malignant neoplasm of parietal lobe Stroke Home Medications aspirin 81 mg chewable tablet 81 mg PO DAILY HEART HEALTH 04/15/18 [History Last Taken 03/30/22] atorvastatin 80 mg tablet 80 mg PO QHS CHOLESTEROL 04/15/18 [History Last Taken 03/29/22] gabapentin 300 mg capsule 300 mg PO QHS RESTLESS LEG SYNDROME 07/28/21 [History Last Taken 03/29/22] tramadol 50 mg tablet 50 mg PO BID PAIN 07/28/21 [History Last Taken 03/30/22] clopidogrel 75 mg tablet 75 mg PO DAILY BLOOD THINNER 03/30/22 [History Last Taken 03/30/22] lisinopril 20 mg tablet 20 mg PO DAILY BLOOD PRESSURE 03/30/22 [History Last Taken 03/30/22] magnesium hydroxide 400 mg/5 mL oral suspension (Milk of Magnesia) 30 ml PO Q24H PRN Constipation 03/30/22 [History Last Taken 03/24/22] mirtazapine 7.5 mg tablet 7.5 mg PO QHS 03/30/22 [History Last Taken 03/29/22] trazodone 100 mg tablet 200 mg PO QHS INSOMNIA 03/30/22 [History Last Taken 03/29/22] ketoconazole 2 % topical cream applic topical 05/22/22 [History Last Taken Unknown] menthol 0.44 %-zinc oxide 20.6 % topical ointment (Calmoseptine) topical 05/22/22 [History Last Taken Unknown] baclofen 5 mg tablet 10 mg PO DAILY 01/02/23 [History Last Taken Unknown] baclofen 5 mg tablet 10 mg PO DAILY 01/02/23 [History Last Taken Unknown] baclofen 5 mg tablet 15 mg PO QHS 01/02/23 [History Last Taken Unknown] cetirizine 10 mg tablet (Allergy Relief (cetirizine)) 10 mg PO DAILY 01/02/23 [History Last Taken Unknown] cyclobenzaprine 10 mg tablet 5 mg PO ONCE PRN MUSCLE SPASMS 01/02/23 [History Last Taken Unknown] guaifenesin 600 mg tablet, extended release 12 hr (Mucinex) 600 mg PO Q12H PRN 01/02/23 [History Last Taken Unknown] baclofen 10 mg tablet PO 08/16/23 [History Last Taken Unknown] gabapentin 600 mg tablet 600 mg PO DAILY 08/16/23 [History Last Taken Unknown] ropinirole 0.25 mg tablet 0.25 mg PO BID 08/16/23 [History Last Taken Unknown] sertraline 50 mg tablet 50 mg PO DAILY 08/16/23 [History Last Taken Unknown] Allergy/AdvReac Type Severity Reaction Status Date / Time prednisone AdvReac Rash Verified 01/02/23 09:27 Family History Grandmother Diabetes Surgical History H/O brain surgery Social History housing: [facility] Smoking Status: Never smoker ROS ROS ED Review of Systems ROS Unobtainable: due to mental status Eyes Eyes: Reports blurry vision ENT ENT ED: Denies rhinorrhea Cardiovascular Cardiovascular: Denies chest pain Respiratory/Chest Respiratory/Chest: Denies cough or dyspnea Gastrointestinal Gastrointestinal: Denies abdominal pain or vomiting Neurologic Neurologic: Reports weakness; Denies headache(s) EXAM Physical Exam Const Vital Signs: 08/16/23 12:01 08/16/23 13:00 08/16/23 14:00 Temperature 97.8 F Temperature Source Oral Pulse Rate 65 61 60 Respiratory Rate 17 14 13 Blood Pressure 125/83 H 118/66 122/69 H Blood Pressure Mean 97 83 86 Pulse Ox 98 97 99 Oxygen Delivery Method Nasal Cannula Nasal Cannula Nasal Cannula Oxygen Flow Rate (L/min) 2 2 2 08/16/23 14:52 Temperature Temperature Source Pulse Rate 58 L Respiratory Rate 12 Blood Pressure 134/77 H Blood Pressure Mean 96 Pulse Ox 93 Oxygen Delivery Method Room Air Oxygen Flow Rate (L/min) Positive obese Nutritional Appearance: obese HEENT Reports moist mucous membranes HEENT Narrative: 2 cm laceration along the right maxilla. Bleeding controlled with scab in place at this time. Eyes EOMs intact bilaterally Chest Wall inspection of chest normal and palpation of chest normal Resp normal respiratory effort and clear to auscultation bilaterally Cardio regular rate and regular rhythm GI non-tender Palpation: soft Extremity Extremity Narrative: Right upper extremity in a sling given her right weakness with old stroke. Patient is able to move both legs as well as her left arm to command. She is following instructions. She is able to tell me her name but not where she is. Neuro Neuro Narrative: Oriented x 1. Sensorium / Orientation: alert Skin Skin Narrative: Facial laceration as noted above. MDM MDM MDM Narrative Medical decision making narrative: Patient placed on personnel monitor. IV line established. Patient sent for CT imaging of the head. Chest x-ray obtained to evaluate for acute lung pathology, cardiac size, or mediastinal abnormality. Labwork obtained to evaluate for leukocytosis, anemia, and electrolyte derangement. Patient's medication list is reviewed on arrival from the ECF. I do not see anticoagulants. She does have a DNR comfort care only order in place. Lab Data Attestation: I reviewed the patient's lab results. Labs: Laboratory Results - last 24 hr 08/16/23 12:00 WBC 6.3 RBC 4.57 Hgb 14.1 Hct 43.3 MCV 94.7 MCH 30.9 MCHC 32.6 RDW Std Deviation 44.7 H RDW Coeff of [place] 13.1 Plt Count 221 MPV 10.5 Immature Gran % (Auto) 0.300 Neut % (Auto) 69.4 Lymph % (Auto) 20.8 Izard % (Auto) 6.2 Eos % (Auto) 2.7 Baso % (Auto) 0.6 Absolute Neuts (auto) 4.4 Absolute Lymphs (auto) 1.32 Nucleated RBC % 0 PT 13.3 INR 1.0 APTT 26.3 Sodium 141 Potassium 3.8 Chloride 105 Carbon Dioxide 31.0 Anion Gap 5 BUN 8 Creatinine 0.84 Estim Creat Clear Calc 105.31 Est GFR (MDRD) Af Amer 90 Est GFR (MDRD) Non-Af 74 BUN/Creatinine Ratio 9.5 L Glucose 102 Calcium 8.8 Radiography Chest X-Ray - ED: 1 View, Read by ED Physician, Chronic Changes and No Infiltrates Diagnostic Testing: Clinical Impression(s) from Imaging Studies Brain CT 08/16/23 12:25 IMPRESSION: Chronic involutional changes of the brain. Stable findings in the posterior occipital lobes more prominent on the left side suggestive of a calcification secondary to vascular malformations. Small scalp hematoma overlying the right frontal bone. Electronically Signed: Otoniel Ott MD at 14:31 EDT , Chest X-Ray 08/16/23 12:28 IMPRESSION: Normal x-ray examination of the chest. Electronically Signed: Otoniel Ott MD at 12:40 EDT , Treatment and Re-Evaluation :: CBC was a white count of 6.3 with a hemoglobin of 14.1. Differential unremarkable. Coags are normal. Chemistry studies unremarkable with a BUN of 8 and a creatinine of 0.84. Glucose is normal at 102. CT scan of the head reveals chronic involutional changes. Stable findings in the posterior occipital lobes more prominent on the left suggestive of calcification secondary to vascular malformation. Small scalp hematoma is noted over the frontal bone on the right. Portable chest x-ray per my interpretation reveals chronic changes with no obvious infiltrate. Radiology interpretation reviewed and agrees. On repeat evaluation patient is alert and knows she is at [facility]. She is taken off of the nasal cannula as she does not normally wear oxygen at baseline. Her O2 sats been stable between 93 to 95%. The laceration along the right maxilla is cleansed and sealed with Dermabond. I will speak with patient's primary care physician or covering doctor and plan will be to [facility]. Discharge Plan Triage Chief Complaint: Neuro S/Sx ED Provider: Yary Martinez Dx/Rx/DC Orders Clinical Impression: Closed head injury, Facial laceration, Fall Instructions: ED Head Injury (Adult), ED Laceration, Face: Skin Glue Prescriptions: No Action gabapentin 300 mg capsule 300 mg PO QHS tramadol 50 mg tablet 50 mg PO BID cetirizine [Allergy Relief (cetirizine)] 10 mg tablet 10 mg PO DAILY baclofen 5 mg tablet 10 mg PO DAILY Rx Instructions: EVERY AM baclofen 5 mg tablet 15 mg PO QHS Rx Instructions: EVERY PM baclofen 5 mg tablet 10 mg PO DAILY Rx Instructions: EVERY AFTERNOON guaifenesin [Mucinex] 600 mg tablet extended release 12hr 600 mg PO Q12H PRN atorvastatin 80 MG tablet 80 mg PO QHS aspirin 81 MG tablet,chewable 81 mg PO DAILY lisinopril 20 mg Tablet 20 mg PO DAILY magnesium hydroxide [Milk of Magnesia] 400 mg/5 mL Suspension 30 ml PO Q24H PRN (Reason: Constipation) trazodone 100 mg Tablet 200 mg PO QHS mirtazapine 7.5 mg Tablet 7.5 mg PO QHS clopidogrel 75 MG tablet 75 mg PO DAILY cyclobenzaprine 10 mg tablet 5 mg PO ONCE PRN (Reason: MUSCLE SPASMS) ketoconazole 2 % cream TOPICAL menthol-zinc oxide [Calmoseptine] 0.44-20.6 % Ointment TOPICAL gabapentin 600 mg tablet 600 mg PO DAILY ropinirole 0.25 mg tablet 0.25 mg PO BID baclofen 10 mg tablet PO sertraline 50 mg tablet 50 mg PO DAILY Primary Care Provider: Michele Barney Referrals: Michele Barney MD [Primary Care Provider] - 5-7 Days Disposition Disposition: Assisted Facility Discharge Location: [facility]
--- NOTE | 2023-08-16 12:25 | CT_ITS ---
STUDY: CT BRAIN WITHOUT CONTRAST REASON FOR EXAM: Female, 58 years old. Head trauma. RADIATION DOSAGE (If Supplied By Facility): CTDIvol = ( 47.06 ) mGy, DLP = ( 943.26 ) mGycm TECHNIQUE: Transaxial CT imaging of the brain was performed without administration of intravenous contrast material. Individualized dose optimization techniques were used for this CT. COMPARISON: Comparison is made with prior study dated May 22, 2022. FINDINGS: Small scalp hematoma overlying the mid right frontal bone. Normal calvarium. There is mild cerebral atrophy with widening of the extra-axial spaces and ventricular dilatation. There are areas of decreased attenuation within the white matter tracts of the supratentorial brain, consistent with microvascular disease changes. Stable focal encephalomalacia in the posterior left parietal occipital lobes. Linear and heterogeneous calcifications are seen in the posterior parietal lobes and occipital lobes bilaterally. This is slightly more prominent on the left side. There has been no change. These may be related to vascular malformations or AVMs. Stable lacunar infarct in the body of the left caudate nucleus. There are small punctate calcifications of the basal ganglia which are seen in the aging brain as a normal variant. Normal brainstem. There is mild cerebellar atrophy. There is no intracranial hemorrhage. There are no findings of an acute ischemic infarction. Normal visualized paranasal sinuses. CT/Brain/Head without Contrast IMPRESSION: Chronic involutional changes of the brain. Stable findings in the posterior occipital lobes more prominent on the left side suggestive of a calcification secondary to vascular malformations. Small scalp hematoma overlying the right frontal bone. Electronically Signed: Otoniel Ott MD at 14:31 EDT ,
[2023-08-16 12:27] LABS: Absolute Lymphocyte Count 1.32 X10^3/uL (0.83-4.51); Absolute Neutrophil Count 4.4 X10^3/uL (2.0-7.7); Basophil# 0.04 X10^3/uL; Basophil% 0.6 % (0-1); Eosinophil# 0.17 X10^3/uL; Eosinophils% 2.7 % (0-5); Hematocrit 43.3 % (37-47); Hemoglobin 14.1 g/dL (12.0-15.0); Lymphocyte # 1.32 X10^3/ul (0.83-4.51); Lymphocyte % 20.8 % (19-41); Mean Corp Hgb Conc 32.6 g/dL (32-36); Mean Corpuscular Hgb 30.9 pg (27.0-32.0); Mean Corpuscular Volume 94.7 fL (81-99); Mean Platelet Vol. 10.5 fl (6.2-12.0); Monocyte# 0.39 X10^3/uL; Monocyte% 6.2 % (0-10); NRBC Flagged by Analyzer 0 % (0-5); Neutrophil % 69.4 % (47-70); Platelet Count 221 K/mm3 (150-450); RBC Distribution Width CV 13.1 % (11.6-14.6); RBC Distribution Width SD 44.7 fl (35.1-43.9); Red Blood Count 4.57 M/mm3 (4.2-5.4); White Blood Count 6.3 K/mm3 (4.4-11.0)
--- NOTE | 2023-08-16 12:28 | RAD_ITS ---
STUDY: X-RAY CHEST REASON FOR EXAM: Female, 58 years old. Sob TECHNIQUE: Single AP portable view of the chest. COMPARISON: Comparison is made with prior study March 30, 2022. FINDINGS: EKG electrodes are seen. The lungs are clear and expanded. There is no demonstrated pleural abnormality. Normal size heart. Normal mediastinum and breanna. Normal visualized pulmonary arteries. There is atherosclerotic tortuosity of the aortic arch and descending thoracic aorta. Normal visualized thoracic spine. Normal visualized ribs, clavicles, and shoulders. There is no demonstrated abnormality of the visualized soft tissue structures of the upper abdomen. RAD/Chest 1 View (Portable) IMPRESSION: Normal x-ray examination of the chest. Electronically Signed: Otoniel Ott MD at 12:40 EDT ,
[2023-08-16 12:37] LABS: Prothrombin Time (Protime)PT. 13.3 SECONDS (11.7-14.9)
[2023-08-16 12:38] LABS: Partial Thromboplast Time 26.3 Seconds (24.1-36.2)
[2023-08-16 12:39] LABS: Anion Gap 5 (5-15); BUN 8 mg/dL (7-18); BUN/Creat Ratio 9.5 RATIO (10-20); Calcium,Total 8.8 mg/dL (8.5-10.1); Chloride 105 mmol/L (98-107); Creatinine, Serum 0.84 mg/dL (0.55-1.02); EST Glomerular Filtration Rate 74 mL/min (>60); Est Glom Filt Rate - Afr Amer 90 mL/min (>60); Estimated Creatinine Clearance 105.31 ml/min; Glucose 102 mg/dL (74-106); Potassium 3.8 mmol/L (3.5-5.1); Sodium Level 141 mmol/L (136-145)
[2023-08-16 13:00] VITALS: BP 118/66; PULSE 61; RESP 14; O2SAT 97
[2023-08-16 14:00] VITALS: BP 122/69; PULSE 60; RESP 13; O2SAT 99
[2023-08-16 14:52] VITALS: BP 134/77; PULSE 58; RESP 12; O2SAT 93
[2023-08-16 15:00] VITALS: BP 132/82; PULSE 58; RESP 18; TEMP 36.3; O2SAT 93
--- NOTE | 2023-08-16 15:41 | ED.RN ---
report called to ALBERTO Deshpande at the [facility]
== END 2023-08-16 15:38 | disposition skilled nursing facility (03) ==
PROVIDERS: Emergency Provider Emergency Medicine; PCP Family Medicine; Visit Provider Emergency Medicine
DX: S01.81XA Laceration without foreign body of other part of head, initial encounter (principal); I69.351 Hemiplegia and hemiparesis following cerebral infarction affecting right dominant side; E11.9 Type 2 diabetes mellitus without complications; Y92.129 Unspecified place in nursing home as the place of occurrence of the external cause; R41.0 Disorientation, unspecified; I10 Essential (primary) hypertension; E78.5 Hyperlipidemia, unspecified; W06.XXXA Fall from bed, initial encounter; Z79.82 Long term (current) use of aspirin; Z79.02 Long term (current) use of antithrombotics/antiplatelets; Z79.899 Other long term (current) drug therapy
CPT/HCPCS: 12011; 70450; 71045; 80048; 85025; 85610; 85730; 93005; 99285